=== PATIENT | male | born 1955 | race Caucasian/White ===

== ENCOUNTER → 2016-12-13 | Outpatient (CLI) | payer MEDICARE ==
--- NOTE | 2016-12-14 08:21 | ECHOF ---
Referral Reason:R06.09 LEWIS MEASUREMENTS -------- HEIGHT: 157.5 cm WEIGHT: 131.5 kg BP: RVIDd: 2.6 cm (< 3.3) IVSd: 1.3 cm (0.6 - 1.1) LVIDd: 4.2 cm (3.9 - 5.3) LVPWd: 1.2 cm (0.6 - 1.1) IVSs: 1.8 cm LVIDs: 2.8 cm LVPWs: 1.2 cm Ao Diam: 2.8 cm (2.0 - 3.7) AV Cusp: 1.7 cm (1.5 - 2.6) LA Diam: 3.4 cm (2.7 - 3.8) MV EXCURSION: 13.601 mm (> 18.000) MV EF SLOPE: 82 mm/s (70 - 150) EPSS: 0.6 cm MV E Samy: 0.64 m/s MV DecT: 232 ms MV A Samy: 0.69 m/s MV E/A Ratio: 0.92 RAP: 5.00 mmHg RVSP: 17.01 mmHg FINDINGS -------- Sinus rhythm. This was a technically adequate study. There is mild concentric left ventricular hypertrophy. Overall left ventricular systolic function is low-normal with, an EF between 50 - 55 %. The right ventricle is normal in size. The left atrial size is normal. The right atrial size is normal. There is mild aortic valve sclerosis. There is no evidence of aortic regurgitation. Mild mitral annular calcification present. Mild mitral regurgitation is present. Mild tricuspid regurgitation present. There is no evidence of pulmonary hypertension. The right ventricular systolic pressure, as measured by Doppler, is 17.01mmHg. There is no pulmonic regurgitation present. The aortic root size is normal. Echo free space may represent effusion or a pericardial fat pad. CONCLUSIONS -------- 1. There is mild concentric left ventricular hypertrophy. 2. Echo free space may represent effusion or a pericardial fat pad. 3. Overall left ventricular systolic function is low-normal with, an EF between 50 - 55 %. 4. There is mild aortic valve sclerosis. 5. Mild mitral annular calcification present. 6. Mild mitral regurgitation is present. 7. Mild tricuspid regurgitation present. 8. There is no evidence of pulmonary hypertension. 9. The right ventricular systolic pressure, as measured by Doppler, is 17.01mmHg. 10. There is no pulmonic regurgitation present. DOORKEEPER: Cielo Jones RDCS
== END | disposition home or self-care (01) ==
LOC: RADECHMAIN 14:50
PROVIDERS: ATTEND Family Medicine
DX: I08.3 Combined rheumatic disorders of mitral, aortic and tricuspid valves (principal)
CPT/HCPCS: 93306

== ENCOUNTER → 2019-03-07 | Outpatient (CLI) | payer MEDICARE ==
--- NOTE | 2019-03-07 14:49 | US ---
EXAMINATION TYPE: US venous doppler duplex LE DATE OF EXAM: 03/07/2019 2:27 PM COMPARISON: NONE CLINICAL HISTORY: R60.0 edema of lower extremities. Edema and pain bilateral legs for 1 week SIDE PERFORMED: bilateral TECHNIQUE: The lower extremity deep venous system is examined utilizing real time linear array sonog abdiaziz with graded compression, doppler sonography and color-flow sonography. VESSELS IMAGED: External Iliac Vein (EIV) Common Femoral Vein Deep Femoral Vein Greater Saphenous Vein * Femoral Vein Popliteal Vein Small Saphenous Vein * Proximal Calf Veins (* superficial vessels) Right Leg: No evidence of DVT Left Leg: No evidence of DVT IMPRESSION: 1. Bilateral lower extremity ultrasound negative for deep venous thrombosis.
== END | disposition home or self-care (01) ==
LOC: RADUSWWP 13:54
PROVIDERS: ATTEND Family Medicine
DX: R60.0 Localized edema (principal)
CPT/HCPCS: 93970

== ENCOUNTER → 2020-04-21 | Outpatient (CLI) | payer MEDICARE ==
[2020-04-21 14:22] LABS: Basophils # (A) 0.1 k/uL (0-0.2); Basophils % (A) 1 %; Eosinophils # (A) 0.3 k/uL (0-0.7); Eosinophils % (A) 3 %; HCT 42.8 % (39.0-53.0); HGB 14.2 gm/dL (13.0-17.5); Lymphocytes # (A) 1.8 k/uL (1.0-4.8); Lymphocytes % (A) 18 %; MCH 30.9 pg (25.0-35.0); MCHC 33.1 g/dL (31.0-37.0); MCV 93.2 fL (80.0-100.0); Mean Platelet Volume 8.4; Monocytes # (A) 0.6 k/uL (0-1.0); Monocytes % (A) 6 %; Neutrophils # (A) 6.9 k/uL (1.3-7.7); Neutrophils % (A) 69 %; Platelet Count 137 k/uL (150-450); RBC 4.59 m/uL (4.30-5.90); RDW 14.5 % (11.5-15.5)
[2020-04-22 01:20] LABS: Hemoglobin A1C 5.4 % (4.0-6.0)
[2020-04-22 01:43] LABS: Streptolysin O Ab(ASO) 138 IU/mL (0-200)
[2020-04-22 01:47] LABS: Protein, Total 6.3 g/dL (6.2-8.2)
[2020-04-22 01:57] LABS: Anion Gap 7.1 mmol/L (4.00-12.00); C Reactive Protein 1.2 mg/dL (0.0-0.8); Carbon Dioxide 27.9 mmol/L (21.6-31.8); Uric Acid 6.7 mg/dL (3.7-8.7)
[2020-04-22 02:21] LABS: Erythrocyte Sedimentation Rate 22 mm/Hr (0-20)
[2020-04-22 03:28] LABS: Hepatitis C IgG Antibody Non-Reactive (Non-Reactive)
[2020-04-22 09:57] LABS: Angiotensin-1 Converting Enz. 26 U/L (8-52)
[2020-04-22 12:20] LABS: HLA B27 NEGATIVE
[2020-04-22 12:22] LABS: Albumin 3.77 g/dL (3.80-4.90)
[2020-04-23 08:13] LABS: HCV Qualitative Result Not detected (Not detected); HCV Quant Log <1.08 (<1.08); HCV Quantitative Result <12 IU/mL (<12)
[2020-04-23 10:12] LABS: Vit B1(Thiamine) 65 ug/L (38-122)
== END | disposition home or self-care (01) ==
LOC: LABWHC1 12:54
PROVIDERS: ATTEND Physical Medicine & Rehabilitation
DX: M54.5 Low back pain (principal); M51.36 Other intervertebral disc degeneration, lumbar region; M47.817 Spondylosis without myelopathy or radiculopathy, lumbosacral region; M41.86 Other forms of scoliosis, lumbar region; M62.830 Muscle spasm of back; Z99.81 Dependence on supplemental oxygen; M51.34 Other intervertebral disc degeneration, thoracic region; J44.9 Chronic obstructive pulmonary disease, unspecified
CPT/HCPCS: 36415; 80051; 82164; 82175; 82550; 82553; 82570; 82607; 83036; 83516; 83615; 83655; 83825; 84165; 84207; 84425; 84443; 84550; 85025; 85652; 86038; 86060; 86140; 86235; 86431; 86618; 86803; 86812; 87522

== ENCOUNTER 2021-06-05 09:56 | Inpatient (IN) | payer MEDICARE ==
[2021-06-05] MEDS ORDERED: ALBUTEROL NEBULIZED 2.5 MG/3 ML INHALATION STA (10:01)
[2021-06-05] MEDS ORDERED: methylPREDNISolone SOD SUCCI 125 MG/2 ML VIAL IV STA (10:01)
[2021-06-05] MEDS ORDERED: TERBUTALINE 1 MG/ML VIAL SQ STA (10:01)
[2021-06-05] MEDS ORDERED: IPRATROPIUM 0.5 MG/2.5 ML NEBU INHALATION STA (10:01)
--- NOTE | 2021-06-05 10:16 | ED ---
General Adult HPI - General Stated complaint: NAVIN Time Seen by Provider: 06/05/21 09:56 Source: patient, RN notes reviewed, old records reviewed - History of Present Illness Initial comments: This a 65-year-old male who has past medical history significant for COPD per patient states suddenly this morning he started feeling short of breath and when EMS got there he was cyanotic around the lips and fingertips. Patient denies a ny chest pain. Patient denies any recent fever chills or cough. Patient states he continues smoking cigarettes. Patient states he did have his oxygen on at home when this started. EMS states when they got to the put him on oxygen and gave him a breathing treatment and he was doing considerably better after that the put him on CPAP. - Related Data Home Medications Medication Instructions Recorded Confirmed Multivitamin [Men's Multi-Vitamin] 1 tab PO DAILY 04/13/16 06/05/21 Albuterol Inhaler [Ventolin Hfa 2 puff INHALATION RT-Q4H PRN 06/05/21 06/05/21 Inhaler] Budesonide/Formoterol Fumarate 2 puff INHALATION RT-BID 06/05/21 06/05/21 [Symbicort 160-4.5 Mcg Inhaler] Ergocalciferol [Vitamin D2 (1250 1,250 mcg PO WEEKLY 06/05/21 06/05/21 Mcg = 96210 Iu)] Famotidine [Pepcid] 20 mg PO BID 06/05/21 06/05/21 Furosemide [Lasix] 40 mg PO DAILY 06/05/21 06/05/21 Ipratropium-Albuterol Nebulize 3 ml INHALATION RT-Q4H PRN 06/05/21 06/05/21 [Duoneb 0.5 mg-3 mg/3 ml Soln] Losartan Potassium 100 mg PO DAILY 06/05/21 06/05/21 Potassium Chloride ER [K-Dur 10] 10 meq PO DAILY 06/05/21 06/05/21 Pregabalin [Lyrica] 200 mg PO TID 06/05/21 06/05/21 Tamsulosin [Flomax] 0.4 mg PO DAILY 06/05/21 06/05/21 Venlafaxine HCl [Effexor XR] 150 mg PO DAILY 06/05/21 06/05/21 amLODIPine [Norvasc] 5 mg PO DAILY 06/05/21 06/05/21 Allergies Allergy/AdvReac Type Severity Reaction Status Date / Time latex AdvReac Rash/Hives Verified 06/05/21 11:26 Review of Systems ROS Statement: Those systems with pertinent positive or pertinent negative responses have been documented in the HPI. ROS Other: All systems not noted in ROS Statement are negative. Past Medical History Past Medical History: COPD History of Any Multi-Drug Resistant Organisms: None Reported Past Surgical History: Joint Replacement, Orthopedic Surgery Additional Past Surgical History / Comment(s): Colonoscopy, Carpel Tunnel Past Anesthesia/Blood Transfusion Reactions: No Reported Reaction Past Alcohol Use History: Rare Past Drug Use History: Marijuana - Past Family History Mother Family Medical History: No Reported History General Exam - General Exam Comments Initial Comments: GENERAL: Patient is well-developed and well-nourished. Patient is nontoxic and well- hydrated and is in mild distress. ENT: Neck is soft and supple. No significant lymphadenopathy is noted. Oropharynx is clear. Moist mucous membranes. Neck has full range of motion without eliciting any pain. EYES: The sclera were anicteric and conjunctiva were pink and moist. Extraocular movements were intact and pupils were equal round and reactive to light. Eyelids were unremarkable. PULMONARY: Very diminished breath sounds and some expiratory wheezing CARDIOVASCULAR: There is a regular rate and rhythm without any murmurs gallops or rubs. ABDOMEN: Soft and nontender with normal bowel sounds. SKIN: Skin is clear with no lesions or rashes and otherwise unremarkable. NEUROLOGIC: Patient is alert and oriented x3. Cranial nerves II through XII are grossly intact. Motor and sensory are also intact. Normal speech, volume and content. Symmetrical smile. MUSCULOSKELETAL: Normal extremities with adequate strength and full range of motion. No lower extremity swelling or edema. No calf tenderness. LYMPHATICS: No significant lymphadenopathy is noted PSYCHIATRIC: Normal psychiatric evaluation. Course Vital Signs 06/05/21 06/05/21 06/05/21 09:58 10:12 10:13 Temperature 97.2 F L Pulse Rate 100 97 Respiratory 24 18 Rate Blood Pressure 157/87 O2 Sat by Pulse 96 Oximetry 06/05/21 06/05/21 06/05/21 10:30 10:56 11:15 Temperature Pulse Rate 99 98 99 Respiratory 18 18 Rate Blood Pressure 128/100 106/83 O2 Sat by Pulse 100 94 L Oximetry 06/05/21 11:51 Temperature Pulse Rate 95 Respiratory Rate Blood Pressure O2 Sat by Pulse Oximetry Medical Decision Making - Medical Decision Making EKG shows normal sinus rhythm at 90 bpm MA interval is 170 QRS is 86 QT interval 336 QTC is 420. Patient's EKG shows no ST segment elevation or depression. Patient received multiple breathing treatments in the emergency department he was still on CPAP when he arrived and he was given steroids. Patient was in significant respiratory distress on arrival. After the breathing treatments and terbutaline in the steroids I went back and reevaluated him he was moving air much better and he felt better but nowhere near his baseline. I spoke with Dr. Cartwright and he agreed to admit the patient admitted the patient wrote admitting orders I consult to Dr. Joshi for pulmonary I admitted the patient and I continued the albuterol and steroids on the floor - Lab Data Result diagrams: 06/05/21 10:11 06/05/21 10:11 Lab Results 06/05/21 06/05/21 06/05/21 Range/Units 10:10 10:11 10:11 WBC 9.2 (3.8-10.6) k/uL RBC 5.42 (4.30-5.90) m/uL Hgb 17.2 (13.0-17.5) gm/dL Hct 50.7 (39.0-53.0) % MCV 93.7 (80.0-100.0) fL MCH 31.7 (25.0-35.0) pg MCHC 33.8 (31.0-37.0) g/dL RDW 15.8 H (11.5-15.5) % Plt Count 136 L (150-450) k/uL MPV 8.3 Neutrophils % 66 % Lymphocytes % 20 % Monocytes % 5 % Eosinophils % 6 % Basophils % 1 % Neutrophils # 6.0 (1.3-7.7) k/uL Lymphocytes # 1.8 (1.0-4.8) k/uL Monocytes # 0.4 (0-1.0) k/uL Eosinophils # 0.5 (0-0.7) k/uL Basophils # 0.1 (0-0.2) k/uL PT 10.2 (9.0-12.0) sec INR 0.9 (<1.2) APTT 23.8 (22.0-30.0) sec D-Dimer 0.57 (<0.60) mg/L FEU Sodium (137-145) mmol/L Potassium (3.5-5.1) mmol/L Chloride (98-107) mmol/L Carbon Dioxide (22-30) mmol/L Anion Gap mmol/L BUN (9-20) mg/dL Creatinine (0.66-1.25) mg/dL Est GFR (CKD-EPI)AfAm (>60 ml/min/1.73 sqM) Est GFR (CKD-EPI)NonAf (>60 ml/min/1.73 sqM) Glucose (74-99) mg/dL Plasma Lactic Acid [place] (0.7-2.0) mmol/L Calcium (8.4-10.2) mg/dL Magnesium (1.6-2.3) mg/dL Total Bilirubin (0.2-1.3) mg/dL AST (17-59) U/L ALT (4-49) U/L Alkaline Phosphatase (38-126) U/L Troponin I (0.000-0.034) ng/mL NT-Pro-B Natriuret Pep pg/mL Total Protein (6.3-8.2) g/dL Albumin (3.5-5.0) g/dL 06/05/21 06/05/21 06/05/21 Range/Units 10:11 10:11 10:11 WBC (3.8-10.6) k/uL RBC (4.30-5.90) m/uL Hgb (13.0-17.5) gm/dL Hct (39.0-53.0) % MCV (80.0-100.0) fL MCH (25.0-35.0) pg MCHC (31.0-37.0) g/dL RDW (11.5-15.5) % Plt Count (150-450) k/uL MPV Neutrophils % % Lymphocytes % % Monocytes % % Eosinophils % % Basophils % % Neutrophils # (1.3-7.7) k/uL Lymphocytes # (1.0-4.8) k/uL Monocytes # (0-1.0) k/uL Eosinophils # (0-0.7) k/uL Basophils # (0-0.2) k/uL PT (9.0-12.0) sec INR (<1.2) APTT (22.0-30.0) sec D-Dimer (<0.60) mg/L FEU Sodium 138 (137-145) mmol/L Potassium 4.5 (3.5-5.1) mmol/L Chloride 98 (98-107) mmol/L Carbon Dioxide 30 (22-30) mmol/L Anion Gap 10 mmol/L BUN 14 (9-20) mg/dL Creatinine 0.99 (0.66-1.25) mg/dL Est GFR (CKD-EPI)AfAm >90 (>60 ml/min/1.73 sqM) Est GFR (CKD-EPI)NonAf 80 (>60 ml/min/1.73 sqM) Glucose 156 H (74-99) mg/dL Plasma Lactic Acid [place] 1.0 (0.7-2.0) mmol/L Calcium 9.7 (8.4-10.2) mg/dL Magnesium 2.2 (1.6-2.3) mg/dL Total Bilirubin 0.9 (0.2-1.3) mg/dL AST 48 (17-59) U/L ALT 55 H (4-49) U/L Alkaline Phosphatase 105 (38-126) U/L Troponin I <0.012 (0.000-0.034) ng/mL NT-Pro-B Natriuret Pep pg/mL Total Protein 7.8 (6.3-8.2) g/dL Albumin 4.7 (3.5-5.0) g/dL 06/05/21 Range/Units 10:11 WBC (3.8-10.6) k/uL RBC (4.30-5.90) m/uL Hgb (13.0-17.5) gm/dL Hct (39.0-53.0) % MCV (80.0-100.0) fL MCH (25.0-35.0) pg MCHC (31.0-37.0) g/dL RDW (11.5-15.5) % Plt Count (150-450) k/uL MPV Neutrophils % % Lymphocytes % % Monocytes % % Eosinophils % % Basophils % % Neutrophils # (1.3-7.7) k/uL Lymphocytes # (1.0-4.8) k/uL Monocytes # (0-1.0) k/uL Eosinophils # (0-0.7) k/uL Basophils # (0-0.2) k/uL PT (9.0-12.0) sec INR (<1.2) APTT (22.0-30.0) sec D-Dimer (<0.60) mg/L FEU Sodium (137-145) mmol/L Potassium (3.5-5.1) mmol/L Chloride (98-107) mmol/L Carbon Dioxide (22-30) mmol/L Anion Gap mmol/L BUN (9-20) mg/dL Creatinine (0.66-1.25) mg/dL Est GFR (CKD-EPI)AfAm (>60 ml/min/1.73 sqM) Est GFR (CKD-EPI)NonAf (>60 ml/min/1.73 sqM) Glucose (74-99) mg/dL Plasma Lactic Acid [place] (0.7-2.0) mmol/L Calcium (8.4-10.2) mg/dL Magnesium (1.6-2.3) mg/dL Total Bilirubin (0.2-1.3) mg/dL AST (17-59) U/L ALT (4-49) U/L Alkaline Phosphatase (38-126) U/L Troponin I (0.000-0.034) ng/mL NT-Pro-B Natriuret Pep 12 pg/mL Total Protein (6.3-8.2) g/dL Albumin (3.5-5.0) g/dL Critical Care Time Critical Care Time: Yes Total Critical Care Time: 35 Disposition Clinical Impression: Acute exacerbation of chronic obstructive pulmonary disease Disposition: ADMITTED IP TO THIS HOSP Referrals: Bill De León MD [REFERRING] - 1-2 days Time of Disposition: 11:56
[2021-06-05 10:20] LABS: Basophils # (A) 0.1 k/uL (0-0.2); Basophils % (A) 1 %; Eosinophils # (A) 0.5 k/uL (0-0.7); Eosinophils % (A) 6 %; HCT 50.7 % (39.0-53.0); HGB 17.2 gm/dL (13.0-17.5); Lymphocytes # (A) 1.8 k/uL (1.0-4.8); Lymphocytes % (A) 20 %; MCH 31.7 pg (25.0-35.0); MCHC 33.8 g/dL (31.0-37.0); MCV 93.7 fL (80.0-100.0); Mean Platelet Volume 8.3; Monocytes # (A) 0.4 k/uL (0-1.0); Monocytes % (A) 5 %; Neutrophils % (A) 66 %; Platelet Count 136 k/uL (150-450); RBC 5.42 m/uL (4.30-5.90); RDW 15.8 % (11.5-15.5); WBC 9.2 k/uL (3.8-10.6)
[2021-06-05 10:29] LABS: ALT 55 U/L (4-49); AST 48 U/L (17-59); African American GFR (CKD) >90 (>60 ml/min/1.73 sqM); Albumin 4.7 g/dL (3.5-5.0); Alkaline Phosphatase 105 U/L (38-126); Anion Gap 10 mmol/L; Blood Urea Nitrogen 14 mg/dL (9-20); Calcium 9.7 mg/dL (8.4-10.2); Carbon Dioxide 30 mmol/L (22-30); Chloride 98 mmol/L (98-107); Glucose 156 mg/dL (74-99); Magnesium 2.2 mg/dL (1.6-2.3); Non-African American GFR(CKD) 80 (>60 ml/min/1.73 sqM); Potassium 4.5 mmol/L (3.5-5.1); Sodium 138 mmol/L (137-145); Total Bilirubin 0.9 mg/dL (0.2-1.3); Total Protein 7.8 g/dL (6.3-8.2)
[2021-06-05 10:30] LABS: INR 0.9 (<1.2); Partial Thromboplastin Time 23.8 sec (22.0-30.0); Prothrombin Time 10.2 sec (9.0-12.0)
--- NOTE | 2021-06-05 11:27 | XR ---
EXAMINATION TYPE: XR chest 2V DATE OF EXAM: 06/05/2021 COMPARISON: NONE HISTORY: Difficulty breathing TECHNIQUE: Frontal and lateral views of the chest are obtained. FINDINGS: There is no focal air space opacity, pleural effusion, or pneumothorax seen. The cardiac silhouette size is within normal limits. There is flattening hemidiaphragms and increased AP diameter of the chest suggesting underlying COPD. Thoracic spondylosis is present. There are overlying leads. Prominent lung volumes noted. Costophrenic angles not entirely included on exam. The osseous struc tures are intact. IMPRESSION: No acute cardiopulmonary process.
[2021-06-05] MEDS ORDERED: IPRATROPIUM-ALBUTEROL 3 ML NEB INHALATION STA (11:49)
[2021-06-05] MEDS ORDERED: IPRATROPIUM-ALBUTEROL 3 ML NEB INHALATION PRN (11:56)
--- NOTE | 2021-06-05 14:15 | P.HPIM ---
History of Present Illness H&P Date: 06/05/21 This is a 65-year-old male with past medical history noted below significant for underlying COPD on home O2 at presented to the emergency room with worsening shortness of breath. Patient said that his symptoms started few days ago and is been getting progressively worse. He is complaining of wheezing and chest tightness. Is also having cough that is productive occasionally of white sputum. He denies any chills. No chest pain. Patient received COVID-19 vaccine. He was brought into the emergency room by EMS and was found to be significantly hypoxic requiring BiPAP on presentation. He is currently on 4 L of oxygen via nasal cannula. He received IV Solu-Medrol in the ER with breathing treatment and currently feeling better. Chest x-ray showed no acute findings. Review of Systems Review of system: 14 points review of systems were obtained and were negative except to what were mentioned in the HPI. Past Medical History Past Medical History: COPD History of Any Multi-Drug Resistant Organisms: None Reported Past Surgical History: Joint Replacement, Orthopedic Surgery Additional Past Surgical History / Comment(s): Colonoscopy, Carpel Tunnel Past Anesthesia/Blood Transfusion Reactions: No Reported Reaction Smoking Status: Current every day smoker Past Alcohol Use History: Rare Past Drug Use History: Marijuana - Past Family History Mother Family Medical History: No Reported History Medications and Allergies Home Medications Medication Instructions Recorded Confirmed Type Multivitamin [Men's Multi-Vitamin] 1 tab PO DAILY 04/13/16 06/05/21 History Albuterol Inhaler [Ventolin Hfa 2 puff INHALATION RT-Q4H PRN 06/05/21 06/05/21 History Inhaler] Budesonide/Formoterol Fumarate 2 puff INHALATION RT-BID 06/05/21 06/05/21 History [Symbicort 160-4.5 Mcg Inhaler] Ergocalciferol [Vitamin D2 (1250 1,250 mcg PO WEEKLY 06/05/21 06/05/21 History Mcg = 46289 Iu)] Famotidine [Pepcid] 20 mg PO BID 06/05/21 06/05/21 History Furosemide [Lasix] 40 mg PO DAILY 06/05/21 06/05/21 History Ipratropium-Albuterol Nebulize 3 ml INHALATION RT-Q4H PRN 06/05/21 06/05/21 History [Duoneb 0.5 mg-3 mg/3 ml Soln] Losartan Potassium 100 mg PO DAILY 06/05/21 06/05/21 History Potassium Chloride ER [K-Dur 10] 10 meq PO DAILY 06/05/21 06/05/21 History Pregabalin [Lyrica] 200 mg PO TID 06/05/21 06/05/21 History Tamsulosin [Flomax] 0.4 mg PO DAILY 06/05/21 06/05/21 History Venlafaxine HCl [Effexor XR] 150 mg PO DAILY 06/05/21 06/05/21 History amLODIPine [Norvasc] 5 mg PO DAILY 06/05/21 06/05/21 History Allergies Allergy/AdvReac Type Severity Reaction Status Date / Time latex AdvReac Rash/Hives Verified 06/05/21 11:26 Physical Exam Vitals: Vital Signs Temp Pulse Pulse Resp BP BP Pulse Ox 06/05/21 13:35 98.5 F 85 22 134/65 94 L 06/05/21 13:09 90 18 119/79 98 06/05/21 12:01 95 06/05/21 11:51 95 06/05/21 11:15 99 18 106/83 94 L 06/05/21 10:56 98 18 128/100 100 06/05/21 10:30 99 06/05/21 10:13 97 06/05/21 10:12 18 06/05/21 09:58 97.2 F L 100 24 157/87 96 Intake and Output 06/04/21 06/05/21 06/05/21 22:59 06:59 14:59 Other: Weight 127.006 kg General: The patient is awake and alert, in no distress Eye: there is normal conjunctiva bilaterally. Neck: The neck is supple, there is no JVD. Cardiovascular: Normal S1-S2, no S3-S4, no murmurs. Respiratory: Lungs are tight with end expiratory wheezing Gastrointestinal: Abdomen is soft, nontender Musculoskeletal: There is no pedal edema. Neurological:. Speech is normal. Skin: Skin is warm and dry Results CBC & Chem 7: 06/05/21 10:11 06/05/21 10:11 Labs: Abnormal Lab Results - Last 24 Hours (Table) 06/05/21 06/05/21 Range/Units 10:11 10:11 RDW 15.8 H (11.5-15.5) % Plt Count 136 L (150-450) k/uL Glucose 156 H (74-99) mg/dL ALT 55 H (4-49) U/L Thrombosis Risk Factor Assmnt - Choose All That Apply Any of the Below Risk Factors Present?: No Assessment and Plan Assessment: 1. Acute COPD exacerbation 2. Acute on chronic hypoxic respiratory failure requiring BiPAP on presentation currently on 4 L of oxygen 3. Chronic hypoxic respiratory failure on 2 L of oxygen at home 4. Essential hypertension 5. BPH Today, I reviewed his medication list and lab work results. Chest x-ray with no acute findings. Continue current regimen. DuoNeb's every 6 hours. Continue inhaled steroids. IV Solu-Medrol 60 mg every 6 hours. Pulmonary consulted for further evaluation.
[2021-06-05] MEDS: IPRATROPIUM-ALBUTEROL 3 ML NEB INHALATION SCH ×2 (16:18→20:11)
[2021-06-05] MEDS: PREGABALIN 100 MG CAP PO SCH ×2 (16:24→20:11)
[2021-06-05] MEDS: methylPREDNISolone SOD SUCCI 125 MG/2 ML VIAL IV SCH ×2 (16:24→20:11)
[2021-06-05 16:32] LABS: Glucose,Whole Blood 128 mg/dL (75-99)
[2021-06-05 19:54] LABS: Glucose,Whole Blood 136 mg/dL (75-99)
[2021-06-05] MEDS ORDERED: BUDESONIDE 0.5 MG/2 ML NEBU INHALATION SCH (20:00)
[2021-06-05] MEDS: FAMOTIDINE 20 MG TAB PO SCH (20:11)
[2021-06-05] MEDS: guaiFENesin 600 MG TABLET.ER PO SCH (20:11)
[2021-06-05] MEDS: SYMBICORT 160-4.5 MCG INHALER INHALATION SCH (20:12)
--- NOTE | 2021-06-06 01:20 | P.CNPUL ---
History of Present Illness Consult date: 06/06/21 Reason for consult: dyspnea, cough, hypoxemia Chief complaint: Shortness of breath History of present illness: 65-year-old morbidly obese male with prior history of sleep disorder breathing and sleep apnea also has a history of COPD on home oxygen 24 7 has been having more short of breath for the last several days which has been progressive patient attributes it to warm weather along with humidity, due to progressive shortness of breath EMS for notified and was brought into emergency department was noted to be cyanotic on the face and the lips and hands patient was placed on CPAP with that he started feeling better, eventually BiPAP was weaned down to 4 L nasal cannula at time of my evaluation patient back on BiPAP but for sleep disorder breathing and sleep apnea and more composed his setting includes 09/13 with 40% oxygen, still have some shortness of breath but severity significantly improved, her chest x-ray has been unremarkable, and labs reviewed mild hyperglycemia thrombocytopenia is present otherwise unremarkable, patient has his CPAP which is old and now patient wants to be changed to new CPAP machine Review of Systems All systems: negative Past Medical History Past Medical History: COPD History of Any Multi-Drug Resistant Organisms: None Reported Past Surgical History: Joint Replacement, Orthopedic Surgery Additional Past Surgical History / Comment(s): Colonoscopy, Carpel Tunnel Past Anesthesia/Blood Transfusion Reactions: No Reported Reaction Smoking Status: Current every day smoker Past Alcohol Use History: Rare Past Drug Use History: Marijuana - Past Family History Mother Family Medical History: No Reported History Medications and Allergies Home Medications Medication Instructions Recorded Confirmed Type Multivitamin [Men's Multi-Vitamin] 1 tab PO DAILY 04/13/16 06/05/21 History Albuterol Inhaler [Ventolin Hfa 2 puff INHALATION RT-Q4H PRN 06/05/21 06/05/21 History Inhaler] Budesonide/Formoterol Fumarate 2 puff INHALATION RT-BID 06/05/21 06/05/21 History [Symbicort 160-4.5 Mcg Inhaler] Ergocalciferol [Vitamin D2 (1250 1,250 mcg PO WEEKLY 06/05/21 06/05/21 History Mcg = 38216 Iu)] Famotidine [Pepcid] 20 mg PO BID 06/05/21 06/05/21 History Furosemide [Lasix] 40 mg PO DAILY 06/05/21 06/05/21 History Ipratropium-Albuterol Nebulize 3 ml INHALATION RT-Q4H PRN 06/05/21 06/05/21 His tory [Duoneb 0.5 mg-3 mg/3 ml Soln] Losartan Potassium 100 mg PO DAILY 06/05/21 06/05/21 History Potassium Chloride ER [K-Dur 10] 10 meq PO DAILY 06/05/21 06/05/21 History Pregabalin [Lyrica] 200 mg PO TID 06/05/21 06/05/21 History Tamsulosin [Flomax] 0.4 mg PO DAILY 06/05/21 06/05/21 History Venlafaxine HCl [Effexor XR] 150 mg PO DAILY 06/05/21 06/05/21 History amLODIPine [Norvasc] 5 mg PO DAILY 06/05/21 06/05/21 History Allergies Allergy/AdvReac Type Severity Reaction Status Date / Time latex AdvReac Rash/Hives Verified 06/05/21 11:26 Physical Exam Vitals: Vital Signs Temp Pulse Pulse Resp BP BP Pulse Ox 06/06/21 00:00 97.8 F 78 16 138/73 06/05/21 20:23 90 06/05/21 20:12 93 06/05/21 20:00 97.8 F 93 18 145/68 94 L 06/05/21 16:34 84 06/05/21 16:20 88 06/05/21 16:00 97.9 F 84 20 138/68 94 L 06/05/21 13:35 98.5 F 85 22 134/65 94 L 06/05/21 13:09 90 18 119/79 98 06/05/21 12:01 95 06/05/21 11:51 95 06/05/21 11:15 99 18 106/83 94 L 06/05/21 10:56 98 18 128/100 100 06/05/21 10:30 99 06/05/21 10:13 97 06/05/21 10:12 18 06/05/21 09:58 97.2 F L 100 24 157/87 96 Intake and Output 06/05/21 06/05/21 06/06/21 14:59 22:59 06:59 Other: # Voids 1 Weight 127.006 kg - Constitutional General appearance: morbidly obese, no acute distress - EENT Eyes: EOMI, PERRLA Ears: bilateral: normal - Neck Carotids: bilateral: upstroke normal Thyroid: bilateral: normal size - Respiratory Respiratory: bilateral: diminished - Cardiovascular Rhythm: regular Heart sounds: normal: S1, S2 - Gastrointestinal General gastrointestinal: distended, normal bowel sounds, soft - Neurologic Neurologic: CNII-XII intact - Musculoskeletal Musculoskeletal: gait normal, generalized weakness, strength equal bilaterally - Psychiatric Psychiatric: A&O x's 3, appropriate affect, intact judgment & insight Results - Laboratory Findings CBC and BMP: 06/05/21 10:11 06/05/21 10:11 PT/INR, D-dimer PT 10.2 sec (9.0-12.0) 06/05/21 10:11 INR 0.9 (<1.2) 06/05/21 10:11 D-Dimer 0.57 mg/L FEU (<0.60) 06/05/21 10:10 Abnormal lab findings: Abnormal Labs 06/05/21 06/05/21 06/05/21 10:11 10:11 16:31 RDW 15.8 H Plt Count 136 L Glucose 156 H POC Glucose (mg/dL) 128 H ALT 55 H 06/05/21 19:52 RDW Plt Count Glucose POC Glucose (mg/dL) 136 H ALT - Diagnostic Findings Chest x-ray: report reviewed, image reviewed Assessment and Plan Assessment: Acute COPD exacerbation Acute on chronic hypoxic respiratory failure Sleep disorder breathing and sleep apnea Hypertension hypertensive cardiovascular disease Chronic diastolic heart failure Morbid obesity Plan: Overall patient is fairly stable for discharge on supplemental oxygen as taken at home and continuation of BiPAP, would need tapering doses of steroids as outpatient, would recommend a follow-up in the office in order to update sleep study/CPAP titration as well as arrange for a new CPAP machine Time with Patient: Greater than 30
[2021-06-06 06:10] LABS: Glucose,Whole Blood 143 mg/dL (75-99)
[2021-06-06] MEDS: methylPREDNISolone SOD SUCCI 125 MG/2 ML VIAL IV SCH ×2 (06:22→08:50)
[2021-06-06] MEDS: IPRATROPIUM-ALBUTEROL 3 ML NEB INHALATION SCH ×4 (07:38→18:47)
[2021-06-06] MEDS: SYMBICORT 160-4.5 MCG INHALER INHALATION SCH ×2 (07:39→18:47)
[2021-06-06] MEDS: VENLAFAXINE HCL ER 150 MG CAP PO SCH (08:48)
[2021-06-06] MEDS: TAMSULOSIN 0.4 MG CAP.ER.24H PO SCH (08:48)
[2021-06-06] MEDS: guaiFENesin 600 MG TABLET.ER PO SCH ×2 (08:49→19:59)
[2021-06-06] MEDS: amLODIPine 5 MG TAB PO SCH (08:49)
[2021-06-06] MEDS: LOSARTAN 50 MG TAB PO SCH (08:49)
[2021-06-06] MEDS: PREGABALIN 100 MG CAP PO SCH ×3 (08:49→19:59)
[2021-06-06] MEDS: POTASSIUM CHLORIDE ER 10 MEQ TAB.ER.PRT PO SCH (08:49)
[2021-06-06] MEDS: FUROSEMIDE 40 MG TAB PO SCH (08:49)
[2021-06-06] MEDS: FAMOTIDINE 20 MG TAB PO SCH ×2 (08:50→19:59)
--- NOTE | 2021-06-06 10:57 | P.PN ---
Subjective Progress Note Date: 06/06/21 Patient is feeling slightly better today. Wheezing is improved but his lungs still tight. Objective - Vital Signs Vital signs: Vital Signs Temp 98.0 F 06/06/21 08:00 Pulse 68 06/06/21 08:00 Resp 18 06/06/21 08:00 BP 144/65 06/06/21 08:00 Pulse Ox 96 06/06/21 08:00 Intake & Output 06/05/21 06/06/21 06/06/21 18:59 06:59 18:59 Intake Total 180 Balance 180 Weight 127.006 kg 124.5 kg Intake: Oral 180 Other: # Voids 1 - Exam General: The patient is awake and alert, in no distress Eye: there is normal conjunctiva bilaterally. Neck: The neck is supple, there is no JVD. Cardiovascular: Normal S1-S2, no S3-S4, no murmurs. Respiratory: Lungs diminished with mild end expiratory wheezing Gastrointestinal: Abdomen is soft, nontender Musculoskeletal: There is no pedal edema. Neurological:. Speech is normal. Skin: Skin is warm and dry - Labs CBC & Chem 7: 06/05/21 10:11 06/05/21 10:11 Labs: Abnormal Lab Results - Last 24 Hours (Table) 06/05/21 06/05/21 06/06/21 Range/Units 16:31 19:52 06:07 POC Glucose (mg/dL) 128 H 136 H 143 H (75-99) mg/dL Assessment and Plan Assessment: 1. Acute COPD exacerbation 2. Acute on chronic hypoxic respiratory failure requiring BiPAP on presentation currently on 4 L of oxygen 3. Chronic hypoxic respiratory failure on 2 L of oxygen at home 4. Essential hypertension 5. BPH Today, I reviewed his medication list and lab work results. Chest x-ray with no acute findings. Continue current regimen. DuoNeb's every 6 hours. Continue inhaled steroids. Change IV Solu-Medrol tp 40 mg every 8 hours. Pulmonary consulted for further evaluation, appreciate recommendations. Anticipate discharge home in the morning.
[2021-06-06 11:32] LABS: Glucose,Whole Blood 140 mg/dL (75-99)
[2021-06-06] MEDS ORDERED: MULTIVITAMINS, THERA 1 EACH TAB PO SCH (12:00)
[2021-06-06] MEDS: methylPREDNISolone SOD SUCCI 40 MG/ML 1 ML VIAL IV SCH ×2 (16:12→23:56)
[2021-06-06 16:23] LABS: Glucose,Whole Blood 125 mg/dL (75-99)
[2021-06-06 20:09] LABS: Glucose,Whole Blood 132 mg/dL (75-99)
[2021-06-07 06:24] LABS: Glucose,Whole Blood 133 mg/dL (75-99)
[2021-06-07] MEDS: SYMBICORT 160-4.5 MCG INHALER INHALATION SCH (08:05)
[2021-06-07] MEDS: IPRATROPIUM-ALBUTEROL 3 ML NEB INHALATION SCH ×2 (08:05→11:55)
[2021-06-07 08:10] VITALS: RESP 18
[2021-06-07] MEDS: amLODIPine 5 MG TAB PO SCH (08:50)
[2021-06-07] MEDS: FAMOTIDINE 20 MG TAB PO SCH (08:51)
[2021-06-07] MEDS: methylPREDNISolone SOD SUCCI 40 MG/ML 1 ML VIAL IV SCH (08:51)
[2021-06-07] MEDS: guaiFENesin 600 MG TABLET.ER PO SCH (08:51)
[2021-06-07] MEDS: FUROSEMIDE 40 MG TAB PO SCH (08:51)
[2021-06-07] MEDS: PREGABALIN 100 MG CAP PO SCH (08:51)
[2021-06-07] MEDS: LOSARTAN 50 MG TAB PO SCH (08:51)
[2021-06-07] MEDS: POTASSIUM CHLORIDE ER 10 MEQ TAB.ER.PRT PO SCH (08:57)
[2021-06-07] MEDS: VENLAFAXINE HCL ER 150 MG CAP PO SCH (08:57)
[2021-06-07] MEDS: TAMSULOSIN 0.4 MG CAP.ER.24H PO SCH (08:57)
[2021-06-07 10:06] VITALS: BP 155/77; TEMP 98.1
--- NOTE | 2021-06-07 10:45 | P.DS ---
Providers Date of admission: 06/05/21 11:56 Expected date of discharge: 06/07/21 Attending physician: Zuleima Cartwright Consults: 06/05/21 11:56 Consult Physician Routine Consulting Provider: Efrain Joshi Consult Reason/Comments: COPD exacerbation Do you want consulting provider notified?: Yes Primary care physician: Bill De León MD Hospital Course: This is a 65-year-old male with past medical history noted below who presented to the emergency room with worsening shortness of breath. Patient was evaluated in the ER and admitted to the hospital for further management of his medical problems noted below. 1. Acute COPD exacerbation 2. Acute on chronic hypoxic respiratory failure requiring BiPAP on presentation currently on 4 L of oxygen 3. Chronic hypoxic respiratory failure on 2 L of oxygen at home 4. Essential hypertension 5. BPH Patient was treated with IV Solu-Medrol and bronchodilators. Chest x-ray with no acute findings. His overall condition improved significantly. Patient was seen and evaluated by me on the day of discharge. There is no significant wheezing on lung auscultation. He was counseled extensively regarding tobacco cessation. Patient will be discharged home in a stable condition. Patient Condition at Discharge: Fair Plan - Discharge Summary Discharge Rx Participant: No New Discharge Prescriptions: New predniSONE [Deltasone] 40 mg PO DAILY #10 tab guaiFENesin [Mucinex] 1,200 mg PO Q12HR #14 tablet Continue Multivitamin [Men's Multi-Vitamin] 1 tab PO DAILY Ergocalciferol [Vitamin D2 (1250 Mcg = 45912 Iu)] 1,250 mcg PO WEEKLY Venlafaxine HCl [Effexor XR] 150 mg PO DAILY Famotidine [Pepcid] 20 mg PO BID Albuterol Inhaler [Ventolin Hfa Inhaler] 2 puff INHALATION RT-Q4H PRN PRN Reason: Shortness Of Breath Tamsulosin [Flomax] 0.4 mg PO DAILY Pregabalin [Lyrica] 200 mg PO TID Potassium Chloride ER [K-Dur 10] 10 meq PO DAILY Losartan Potassium 100 mg PO DAILY Budesonide/Formoterol Fumarate [Symbicort 160-4.5 Mcg Inhaler] 2 puff INHALATION RT-BID amLODIPine [Norvasc] 5 mg PO DAILY Ipratropium-Albuterol Nebulize [Duoneb 0.5 mg-3 mg/3 ml Soln] 3 ml INHALATION RT-Q4H PRN PRN Reason: Shortness Of Breath Furosemide [Lasix] 40 mg PO DAILY Discharge Medication List Multivitamin [Men's Multi-Vitamin] 1 tab PO DAILY 04/13/16 [History] Albuterol Inhaler [Ventolin Hfa Inhaler] 2 puff INHALATION RT-Q4H PRN 06/05/21 [History] Budesonide/Formoterol Fumarate [Symbicort 160-4.5 Mcg Inhaler] 2 puff INHALATION RT-BID 06/05/21 [History] Ergocalciferol [Vitamin D2 (1250 Mcg = 97922 Iu)] 1,250 mcg PO WEEKLY 06/05/21 [History] Famotidine [Pepcid] 20 mg PO BID 06/05/21 [History] Furosemide [Lasix] 40 mg PO DAILY 06/05/21 [History] Ipratropium-Albuterol Nebulize [Duoneb 0.5 mg-3 mg/3 ml Soln] 3 ml INHALATION RT-Q4H PRN 06/05/21 [History] Losartan Potassium 100 mg PO DAILY 06/05/21 [History] Potassium Chloride ER [K-Dur 10] 10 meq PO DAILY 06/05/21 [History] Pregabalin [Lyrica] 200 mg PO TID 06/05/21 [History] Tamsulosin [Flomax] 0.4 mg PO DAILY 06/05/21 [History] Venlafaxine HCl [Effexor XR] 150 mg PO DAILY 06/05/21 [History] amLODIPine [Norvasc] 5 mg PO DAILY 06/05/21 [History] guaiFENesin [Mucinex] 1,200 mg PO Q12HR #14 tablet 06/07/21 [Rx] predniSONE [Deltasone] 40 mg PO DAILY #10 tab 06/07/21 [Rx] Follow up Appointment(s)/Referral(s): Bill De León MD [Primary Care Provider] - 1 Week Efrain Joshi MD [STAFF PHYSICIAN] - 06/15/21 1:45 pm Patient Instructions/Handouts: Using Oxygen at Home (DC), COPD (Chronic Obstructive Pulmonary Disease) (DC) Discharge Disposition: HOME SELF-CARE
[2021-06-07 11:58] VITALS: PULSE 80
[2021-06-12] MEDS ORDERED: ERGOCALCIFEROL 1,250 MCG (50,000 IU) CAPSULE PO SCH (12:00)
== END 2021-06-07 12:22 | disposition home or self-care (01) | DRG 190 ==
LOC: EC 09:56 → SUPCPDRO 09:56 → 3SCARD 11:56
PROVIDERS: ADMIT Internal Medicine; ATTEND Internal Medicine
DX: J44.1 Chronic obstructive pulmonary disease with (acute) exacerbation (principal); J96.21 Acute and chronic respiratory failure with hypoxia; I50.32 Chronic diastolic (congestive) heart failure; I11.0 Hypertensive heart disease with heart failure; Z23 Encounter for immunization; Z79.51 Long term (current) use of inhaled steroids; Z79.899 Other long term (current) drug therapy; Z99.81 Dependence on supplemental oxygen; N40.0 Benign prostatic hyperplasia without lower urinary tract symptoms; G47.30 Sleep apnea, unspecified; F17.210 Nicotine dependence, cigarettes, uncomplicated; E66.01 Morbid (severe) obesity due to excess calories; D69.6 Thrombocytopenia, unspecified
CPT/HCPCS: 36415; 71046; 80053; 83605; 83735; 83880; 84484; 85025; 85379; 85610; 85730; 93005; 94640; 94660; 94760; 96372; 96374; 99291

== ENCOUNTER 2022-01-26 08:26 | Observation (INO) | payer MEDICARE ==
[2022-01-26] MEDS ORDERED: methylPREDNISolone SOD SUCCI 125 MG/2 ML VIAL IV STA (08:41)
[2022-01-26 09:28] LABS: Basophils # (A) 0.1 k/uL (0-0.2); Basophils % (A) 1 %; Eosinophils # (A) 0.5 k/uL (0-0.7); Eosinophils % (A) 6 %; HCT 43.9 % (39.0-53.0); Lymphocytes # (A) 1.7 k/uL (1.0-4.8); Lymphocytes % (A) 21 %; MCH 31.7 pg (25.0-35.0); MCHC 34.1 g/dL (31.0-37.0); MCV 92.9 fL (80.0-100.0); Mean Platelet Volume 8.8; Monocytes # (A) 0.5 k/uL (0-1.0); Monocytes % (A) 6 %; Neutrophils # (A) 5.5 k/uL (1.3-7.7); Neutrophils % (A) 65 %; Platelet Count 122 k/uL (150-450); RBC 4.73 m/uL (4.30-5.90); RDW 14.9 % (11.5-15.5); WBC 8.5 k/uL (3.8-10.6)
--- NOTE | 2022-01-26 09:28 | ED ---
SOB HPI - General Chief Complaint: Shortness of Breath Stated Complaint: NAVIN Time Seen by Provider: 01/26/22 08:28 Source: patient, EMS, RN notes reviewed Mode of arrival: EMS Limitations: no limitations - History of Present Illness Initial Comments: 66-year-old male presents emergency Department with chief complaint of shortness breath. Patient states she's been having increasing shortness breath the last couple days. Patient is a former smoker has history of COPD. Patient states that he said no fevers or chills no chest pain states her some tightness of his lungs. Patient was given DuoNeb treatments by EMS which greatly improved patient's symptoms. Patient denies any leg pain or leg swelling of the usual. Patient states he does see Dr. Joshi. - Related Data Home Medications Medication Instructions Recorded Confirmed Multivitamin [Men's Multi-Vitamin] 1 tab PO DAILY 04/13/16 01/26/22 Albuterol Inhaler [Ventolin Hfa 2 puff INHALATION RT-Q4H PRN 06/05/21 01/26/22 Inhaler] Budesonide/Formoterol Fumarate 2 puff INHALATION RT-BID 06/05/21 01/26/22 [Symbicort 160-4.5 Mcg Inhaler] Ergocalciferol [Vitamin D2 (1250 1,250 mcg PO VALENCIA 06/05/21 01/26/22 Mcg = 08280 Iu)] Famotidine [Pepcid] 20 mg PO AC-BID 06/05/21 01/26/22 Furosemide [Lasix] 40 mg PO DAILY 06/05/21 01/26/22 Ipratropium-Albuterol Nebulize 3 ml INHALATION RT-Q4H PRN 06/05/21 01/26/22 [Duoneb 0.5 mg-3 mg/3 ml Soln] Losartan Potassium 100 mg PO DAILY 06/05/21 01/26/22 Potassium Chloride ER [K-Dur 10] 10 meq PO DAILY 06/05/21 01/26/22 Pregabalin [Lyrica] 200 mg PO TID 06/05/21 01/26/22 Tamsulosin [Flomax] 0.4 mg PO HS 06/05/21 01/26/22 Venlafaxine HCl [Effexor XR] 150 mg PO DAILY 06/05/21 01/26/22 amLODIPine [Norvasc] 5 mg PO DAILY 06/05/21 01/26/22 Albuterol Nebulized [Ventolin 2.5 mg INHALATION RT-QID PRN 01/26/22 01/26/22 Nebulized] Aspirin EC [Ecotrin Low Dose] 81 mg PO BID 01/26/22 01/26/22 Rivaroxaban [Xarelto] 2.5 mg PO DAILY 01/26/22 01/26/22 Allergies Allergy/AdvReac Type Severity Reaction Status Date / Time aspirin AdvReac High doses Verified 01/26/22 10:34 cause abdominal pain latex AdvReac Tears skin Verified 01/26/22 10:34 Review of Systems ROS Statement: Those systems with pertinent positive or pertinent negative responses have been documented in the HPI. ROS Other: All systems not noted in ROS Statement are negative. Past Medical History Past Medical History: COPD History of Any Multi-Drug Resistant Organisms: None Reported Past Surgical History: Joint Replacement, Orthopedic Surgery Additional Past Surgical History / Comment(s): Colonoscopy, Carpel Tunnel Past Anesthesia/Blood Transfusion Reactions: No Reported Reaction Past Psychological History: No Psychological Hx Reported Smoking Status: Former smoker Past Alcohol Use History: Rare Past Drug Use History: Marijuana - Past Family History Mother Family Medical History: No Reported History General Exam Limitations: no limitations General appearance: alert, in no apparent distress Head exam: Present: atraumatic, normocephalic, normal inspection Eye exam: Present: normal appearance, PERRL, EOMI. Absent: scleral icterus, conjunctival injection, periorbital swelling ENT exam: Present: normal exam, mucous membranes moist Neck exam: Present: normal inspection, full ROM. Absent: tenderness, meningismus, lymphadenopathy Respiratory exam: Present: respiratory distress, wheezes, decreased breath sounds. Absent: normal lung sounds bilaterally, rales, rhonchi, stridor Cardiovascular Exam: Present: regular rate, normal rhythm, normal heart sounds. Absent: systolic murmur, diastolic murmur, rubs, gallop, clicks Neurological exam: Present: alert, oriented X3, CN II-XII intact Course Vital Signs 01/26/22 01/26/22 01/26/22 08:29 08:39 09:33 Temperature 98.0 F Pulse Rate 93 68 Respiratory 22 24 20 Rate Blood Pressure 160/79 119/82 O2 Sat by Pulse 97 98 Oximetry Medical Decision Making - Medical Decision Making 66-year-old presented for dyspnea. Patient's offers dependent COPD her. Patient states he still feels short of breath having extreme respirator distress with ambulation. Patient will be admitted for IV steroids, treatments - Lab Data Result diagrams: 01/26/22 08:43 01/26/22 08:43 Lab Results 01/26/22 01/26/22 01/26/22 Range/Units 08:43 08:43 08:43 WBC 8.5 (3.8-10.6) k/uL RBC 4.73 (4.30-5.90) m/uL Hgb 15.0 (13.0-17.5) gm/dL Hct 43.9 (39.0-53.0) % MCV 92.9 (80.0-100.0) fL MCH 31.7 (25.0-35.0) pg MCHC 34.1 (31.0-37.0) g/dL RDW 14.9 (11.5-15.5) % Plt Count 122 L (150-450) k/uL MPV 8.8 Neutrophils % 65 % Lymphocytes % 21 % Monocytes % 6 % Eosinophils % 6 % Basophils % 1 % Neutrophils # 5.5 (1.3-7.7) k/uL Lymphocytes # 1.7 (1.0-4.8) k/uL Monocytes # 0.5 (0-1.0) k/uL Eosinophils # 0.5 (0-0.7) k/uL Basophils # 0.1 (0-0.2) k/uL PT 10.9 (9.0-12.0) sec INR 1.0 (<1.2) APTT 26.7 (22.0-30.0) sec Sodium 141 (137-145) mmol/L Potassium 4.4 (3.5-5.1) mmol/L Chloride 98 (98-107) mmol/L Carbon Dioxide 37 H (22-30) mmol/L Anion Gap 6 mmol/L BUN 15 (9-20) mg/dL Creatinine 1.12 (0.66-1.25) mg/dL Est GFR (CKD-EPI)AfAm 80 (>60 ml/min/1.73 sqM) Est GFR (CKD-EPI)NonAf 69 (>60 ml/min/1.73 sqM) Glucose 112 H (74-99) mg/dL Plasma Lactic Acid [place] (0.7-2.0) mmol/L Calcium 9.1 (8.4-10.2) mg/dL Magnesium 2.2 (1.6-2.3) mg/dL Total Bilirubin 0.8 (0.2-1.3) mg/dL AST 38 (17-59) U/L ALT 44 (4-49) U/L Alkaline Phosphatase 91 (38-126) U/L Troponin I (0.000-0.034) ng/mL NT-Pro-B Natriuret Pep pg/mL Total Protein 7.3 (6.3-8.2) g/dL Albumin 4.1 (3.5-5.0) g/dL Coronavirus (PCR) (Not Detectd) 01/26/22 01/26/22 01/26/22 Range/Units 08:43 08:43 08:43 WBC (3.8-10.6) k/uL RBC (4.30-5.90) m/uL Hgb (13.0-17.5) gm/dL Hct (39.0-53.0) % MCV (80.0-100.0) fL MCH (25.0-35.0) pg MCHC (31.0-37.0) g/dL RDW (11.5-15.5) % Plt Count (150-450) k/uL MPV Neutrophils % % Lymphocytes % % Monocytes % % Eosinophils % % Basophils % % Neutrophils # (1.3-7.7) k/uL Lymphocytes # (1.0-4.8) k/uL Monocytes # (0-1.0) k/uL Eosinophils # (0-0.7) k/uL Basophils # (0-0.2) k/uL PT (9.0-12.0) sec INR (<1.2) APTT (22.0-30.0) sec Sodium (137-145) mmol/L Potassium (3.5-5.1) mmol/L Chloride (98-107) mmol/L Carbon Dioxide (22-30) mmol/L Anion Gap mmol/L BUN (9-20) mg/dL Creatinine (0.66-1.25) mg/dL Est GFR (CKD-EPI)AfAm (>60 ml/min/1.73 sqM) Est GFR (CKD-EPI)NonAf (>60 ml/min/1.73 sqM) Glucose (74-99) mg/dL Plasma Lactic Acid [place] 1.0 (0.7-2.0) mmol/L Calcium (8.4-10.2) mg/dL Magnesium (1.6-2.3) mg/dL Total Bilirubin (0.2-1.3) mg/dL AST (17-59) U/L ALT (4-49) U/L Alkaline Phosphatase (38-126) U/L Troponin I 0.014 (0.000-0.034) ng/mL NT-Pro-B Natriuret Pep 14 pg/mL Total Protein (6.3-8.2) g/dL Albumin (3.5-5.0) g/dL Coronavirus (PCR) (Not Detectd) 01/26/22 Range/Units 08:43 WBC (3.8-10.6) k/uL RBC (4.30-5.90) m/uL Hgb (13.0-17.5) gm/dL Hct (39.0-53.0) % MCV (80.0-100.0) fL MCH (25.0-35.0) pg MCHC (31.0-37.0) g/dL RDW (11.5-15.5) % Plt Count (150-450) k/uL MPV Neutrophils % % Lymphocytes % % Monocytes % % Eosinophils % % Basophils % % Neutrophils # (1.3-7.7) k/uL Lymphocytes # (1.0-4.8) k/uL Monocytes # (0-1.0) k/uL Eosinophils # (0-0.7) k/uL Basophils # (0-0.2) k/uL PT (9.0-12.0) sec INR (<1.2) APTT (22.0-30.0) sec Sodium (137-145) mmol/L Potassium (3.5-5.1) mmol/L Chloride (98-107) mmol/L Carbon Dioxide (22-30) mmol/L Anion Gap mmol/L BUN (9-20) mg/dL Creatinine (0.66-1.25) mg/dL Est GFR (CKD-EPI)AfAm (>60 ml/min/1.73 sqM) Est GFR (CKD-EPI)NonAf (>60 ml/min/1.73 sqM) Glucose (74-99) mg/dL Plasma Lactic Acid [place] (0.7-2.0) mmol/L Calcium (8.4-10.2) mg/dL Magnesium (1.6-2.3) mg/dL Total Bilirubin (0.2-1.3) mg/dL AST (17-59) U/L ALT (4-49) U/L Alkaline Phosphatase (38-126) U/L Troponin I (0.000-0.034) ng/mL NT-Pro-B Natriuret Pep pg/mL Total Protein (6.3-8.2) g/dL Albumin (3.5-5.0) g/dL Coronavirus (PCR) Not Detected (Not Detectd) Disposition Clinical Impression: Acute exacerbation of chronic obstructive pulmonary disease Disposition: ADMITTED IP TO THIS HOSP Condition: Fair Referrals: Bill De León MD [Primary Care Provider] - 1-2 days Time of Disposition: 10:18
[2022-01-26 09:34] LABS: Partial Thromboplastin Time 26.7 sec (22.0-30.0); Prothrombin Time 10.9 sec (9.0-12.0)
--- NOTE | 2022-01-26 09:41 | XR ---
EXAMINATION TYPE: XR chest 2V DATE OF EXAM: 01/26/2022 COMPARISON: 06/05/21 HISTORY: Shortness of breath TECHNIQUE: Frontal and lateral views of the chest are obtained. FINDINGS: Scattered senescent parenchymal changes noted. Hyperinflation compatible with COPD. No evidence for infiltrate. No evidence for atelectasis. Heart size is stable. Mediastinal structures are stable and grossly unremarkable. No evidence for hilar prominence. Degenerative changes dorsal spine. IMPRESSION: 1. No evidence for acute pulmonary disease.
[2022-01-26 09:45] LABS: Albumin 4.1 g/dL (3.5-5.0); Calcium 9.1 mg/dL (8.4-10.2); Magnesium 2.2 mg/dL (1.6-2.3); Potassium 4.4 mmol/L (3.5-5.1); Total Bilirubin 0.8 mg/dL (0.2-1.3); Total Protein 7.3 g/dL (6.3-8.2)
[2022-01-26] MEDS ORDERED: IPRATROPIUM-ALBUTEROL 3 ML NEB INHALATION STA (10:17)
[2022-01-26] MEDS ORDERED: IPRATROPIUM-ALBUTEROL 3 ML NEB INHALATION PRN ×2 (10:40→15:05)
[2022-01-26] MEDS ORDERED: methylPREDNISolone SOD SUCCI 125 MG/2 ML VIAL IV SCH (12:00)
[2022-01-26] MEDS: IPRATROPIUM-ALBUTEROL 3 ML NEB INHALATION SCH ×3 (12:01→19:30)
[2022-01-26] MEDS ORDERED: ALBUTEROL HFA INHALER INHALATION PRN (15:05)
[2022-01-26] MEDS ORDERED: ALBUTEROL NEBULIZED 2.5 MG/3 ML INHALATION PRN (15:05)
[2022-01-26] MEDS: PREGABALIN 100 MG CAP PO SCH ×2 (15:12→21:04)
[2022-01-26] MEDS: methylPREDNISolone SOD SUCCI 125 MG/2 ML VIAL IV SCH ×2 (15:13→21:11)
--- NOTE | 2022-01-26 15:20 | P.HPIM ---
History of Present Illness H&P Date: 01/26/22 Chief Complaint: Shortness of breath 66-year-old male presents emergency Department with chief complaint of shortness breath. Patient states she's been having increasing shortness breath the last couple days. Patient is a former smoker has history of COPD. Patient states t hat he said no fevers or chills no chest pain states her some tightness of his lungs. Patient was given DuoNeb treatments by EMS which greatly improved patient's symptoms. Patient denies any leg pain or leg swelling of the usual. Patient states he does see Dr. Joshi. Patient was examined under fluoroscopy is currently on 2 L oxygen which is baseline. He is already feeling better after he received IV steroids and breathing treatment in emergency room. Patient denies any fever or chills. He denies any nausea vomiting abdominal pain or change in bowel movement. He denies any recent travel or sick contact Review of Systems All 14 review of systems evaluated and all negative except for above. Past Medical History Past Medical History: Heart Failure, COPD, GERD/Reflux, Hypertension, Osteoarthritis (OA), Pneumonia, Prostate Disorder, Respiratory Disorder, Sleep Apnea/CPAP/BIPAP Additional Past Medical History / Comment(s): Chronic hypoxic respiratory failure, home oxygen at 2L/NC ATC, pt states he was placed on xarelto d/t his lung condition, MANDY with Cpap, neuropathy bilateral legs knees down thru toes, occasional bilateral lower leg/pedal edema, BPH, benign colon polyps years ago. History of Any Multi-Drug Resistant Organisms: None Reported Past Surgical History: Joint Replacement, Orthopedic Surgery, Tonsillectomy Additional Past Surgical History / Comment(s): Bilateral total hip arthroplasties, L carpal tunnel release, R patella tendon release twice, colonoscopy/polypectomy Past Anesthesia/Blood Transfusion Reactions: No Reported Reaction Smoking Status: Former smoker - Past Family History Mother Family Medical History: No Reported History Additional Family Medical History / Comment(s): Mother is healthy and 89yrs old. Father Family Medical History: No Reported History Additional Family Medical History / Comment(s): Father is healthy and 90yrs old. Medications and Allergies Home Medications Medication Instructions Recorded Confirmed Type Multivitamin [Men's Multi-Vitamin] 1 tab PO DAILY 04/13/16 01/26/22 History Albuterol Inhaler [Ventolin Hfa 2 puff INHALATION RT-Q4H PRN 06/05/21 01/26/22 History Inhaler] Budesonide/Formoterol Fumarate 2 puff INHALATION RT-BID 06/05/21 01/26/22 History [Symbicort 160-4.5 Mcg Inhaler] Ergocalciferol [Vitamin D2 (1250 1,250 mcg PO VALENCIA 06/05/21 01/26/22 History Mcg = 81612 Iu)] Famotidine [Pepcid] 20 mg PO AC-BID 06/05/21 01/26/22 History Furosemide [Lasix] 40 mg PO DAILY 06/05/21 01/26/22 History Ipratropium-Albuterol Nebulize 3 ml INHALATION RT-Q4H PRN 06/05/21 01/26/22 History [Duoneb 0.5 mg-3 mg/3 ml Soln] Losartan Potassium 100 mg PO DAILY 06/05/21 01/26/22 History Potassium Chloride ER [K-Dur 10] 10 meq PO DAILY 06/05/21 01/26/22 History Pregabalin [Lyrica] 200 mg PO TID 06/05/21 01/26/22 History Tamsulosin [Flomax] 0.4 mg PO HS 06/05/21 01/26/22 History Venlafaxine HCl [Effexor XR] 150 mg PO DAILY 06/05/21 01/26/22 History amLODIPine [Norvasc] 5 mg PO DAILY 06/05/21 01/26/22 History Albuterol Nebulized [Ventolin 2.5 mg INHALATION RT-QID PRN 01/26/22 01/26/22 History Nebulized] Aspirin EC [Ecotrin Low Dose] 81 mg PO BID 01/26/22 01/26/22 History Rivaroxaban [Xarelto] 2.5 mg PO DAILY 01/26/22 01/26/22 History Allergies Allergy/AdvReac Type Severity Reaction Status Date / Time aspirin AdvReac High doses Verified 01/26/22 10:34 cause abdominal pain latex AdvReac Tears skin Verified 01/26/22 10:34 Physical Exam Vitals: Vital Signs Temp Pulse Pulse Resp BP BP Pulse Ox 01/26/22 14:53 98 F 71 14 130/77 96 01/26/22 12:52 20 01/26/22 12:40 97.7 F 72 12 121/80 98 01/26/22 12:09 72 01/26/22 12:01 70 01/26/22 11:51 97.8 F 66 20 113/54 97 01/26/22 10:52 68 01/26/22 10:39 67 01/26/22 09:33 68 20 119/82 98 01/26/22 08:39 24 01/26/22 08:29 98.0 F 93 22 160/79 97 Intake and Output 01/26/22 01/26/22 01/26/22 06:59 14:59 22:59 Intake Total 100 Balance 100 Intake: Oral 100 Other: Voiding Method Toilet Weight 131.542 kg General: non toxic, no distress, appears at stated age. Obese Derm: warm, dry Head: atraumatic, normocephalic, symmetric Eyes: EOMI, no lid lag, anicteric sclera Mouth: no lip lesion, mucus membranes moist Cardiovascular: S1S2 reg, no murmur, positive posterior tibial pulse bilateral, Lungs: CTA bilateral, no rhonchi, no rales , no accessory muscle use Abdominal: soft, nontender to palpation, no guarding, no appreciable organomegaly Ext: Bilateral lower extremity 1+ edema. no gross muscle atrophy, no edema, no contractures Neuro: CN II-XI grossly intact, no focal neuro deficits Psych: Alert, oriented, appropriate affect Results CBC & Chem 7: 01/26/22 08:43 01/26/22 08:43 Labs: Abnormal Lab Results - Last 24 Hours (Table) 01/26/22 01/26/22 Range/Units 08:43 08:43 Plt Count 122 L (150-450) k/uL Carbon Dioxide 37 H (22-30) mmol/L Glucose 112 H (74-99) mg/dL Thrombosis Risk Factor Assmnt - Choose All That Apply Any of the Below Risk Factors Present?: Yes Each Factor Represents 1 point: Abnormal pulmonary function (COPD), Obesity (BMI >25) Other Risk Factors: Yes Each Risk Factor Represents 2 Points: Age 61-74 years Other congenital or acquired thrombophilia - If yes, enter type in comment: No Thrombosis Risk Factor Assessment Total Risk Factor Score: 4 Thrombosis Risk Factor Assessment Level: Moderate Risk Assessment and Plan Assessment: Assessment and plan: #Acute COPD exacerbation -Resume IV steroids -Resume breathing treatments -And 71 discharged tomorrow in the morning on prednisone 40 mg daily 4 days #Acute on chronic hypoxic respiratory failure -Secondary to above -Improved after IV steroids and breathing treatment currently is on 2 L #Morbid obesity BMI 40. Obstructive sleep apnea #Chronic bilateral lower extremity edema -History of diastolic chronic dysfunction CHF -No evidence of acute CHF on chest x-ray -Patient on Lasix at home -Could be secondary to chronic right-sided heart failure #Peripheral neuropathy -Resume Lyrica #Hypertension -Resume Norvasc #Benign prostatic hypertrophy -Resume Flomax
[2022-01-26] MEDS: FAMOTIDINE 20 MG TAB PO SCH (17:35)
--- NOTE | 2022-01-26 18:15 | P.CNPUL ---
History of Present Illness Consult date: 01/26/22 Reason for consult: dyspnea, cough, COPD, hypoxemia, obstructive sleep apnea Chief complaint: Progressive shortness of breath for last 2 days History of present illness: This is a morbidly obese 66-year-old male well-known to me with prior medical history of end-stage lung disease on home oxygen, patient has been active smoker up to May 2021 quit smoking at that time. Patient is on home nebulizer machine also has sleep disorder breathing and sleep apnea patient is in process of getting a new CPAP machine as prior machine is not providing adequate support with pressure. Patient was complaining of shortness of breath which she feels getting worse in the last 2 days up to a point earlier today while taking ne bulizer developed severe shortness of breath and wheezing and chest tightness decided to come into the hospital for further evaluation on specific questioning denies any loss of consciousness), denies any chest pain or radiation of pain, intermittent dry cough is present, shortness of breath was more than a slide along with wheezing, denies any hemoptysis, denies any bowel or bladder problem, patient has a sleep disorder breathing and sleep apnea currently in process of getting sleep studies and a change of CPAP machine. He is admitted chest x-ray consistent with COPD. Labs were significant for mild thrombocytopenia with a platelet count of 122 CO2 was 37, and covert is negative. Patient has been started on bronchodilators with DuoNeb along with continuation of his home medications including direct oral anticoagulant and IV steroids Review of Systems All systems: negative Past Medical History Past Medical History: Heart Failure, COPD, GERD/Reflux, Hypertension, Osteoarthritis (OA), Pneumonia, Prostate Disorder, Respiratory Disorder, Sleep Apnea/CPAP/BIPAP Additional Past Medical History / Comment(s): Chronic hypoxic respiratory failure, home oxygen at 2L/NC ATC, pt states he was placed on xarelto d/t his lung condition, MANDY with Cpap, neuropathy bilateral legs knees down thru toes, occasional bilateral lower leg/pedal edema, BPH, benign colon polyps years ago. History of Any Multi-Drug Resistant Organisms: None Reported Past Surgical History: Joint Replacement, Orthopedic Surgery, Tonsillectomy Additional Past Surgical History / Comment(s): Bilateral total hip arthroplasties, L carpal tunnel release, R patella tendon release twice, colonoscopy/polypectomy Past Anesthesia/Blood Transfusion Reactions: No Reported Reaction Smoking Status: Former smoker - Past Family History Mother Family Medical History: No Reported History Additional Family Medical History / Comment(s): Mother is healthy and 89yrs old. Father Family Medical History: No Reported History Additional Family Medical History / Comment(s): Father is healthy and 90yrs old. Medications and Allergies Home Medications Medication Instructions Recorded Confirmed Type Multivitamin [Men's Multi-Vitamin] 1 tab PO DAILY 04/13/16 01/26/22 History Albuterol Inhaler [Ventolin Hfa 2 puff INHALATION RT-Q4H PRN 06/05/21 01/26/22 History Inhaler] Budesonide/Formoterol Fumarate 2 puff INHALATION RT-BID 06/05/21 01/26/22 History [Symbicort 160-4.5 Mcg Inhaler] Ergocalciferol [Vitamin D2 (1250 1,250 mcg PO VALENCIA 06/05/21 01/26/22 History Mcg = 46800 Iu)] Famotidine [Pepcid] 20 mg PO AC-BID 06/05/21 01/26/22 History Furosemide [Lasix] 40 mg PO DAILY 06/05/21 01/26/22 History Ipratropium-Albuterol Nebulize 3 ml INHALATION RT-Q4H PRN 06/05/21 01/26/22 History [Duoneb 0.5 mg-3 mg/3 ml Soln] Losartan Potassium 100 mg PO DAILY 06/05/21 01/26/22 History Potassium Chloride ER [K-Dur 10] 10 meq PO DAILY 06/05/21 01/26/22 History Pregabalin [Lyrica] 200 mg PO TID 06/05/21 01/26/22 History Tamsulosin [Flomax] 0.4 mg PO HS 06/05/21 01/26/22 History Venlafaxine HCl [Effexor XR] 150 mg PO DAILY 06/05/21 01/26/22 History amLODIPine [Norvasc] 5 mg PO DAILY 06/05/21 01/26/22 History Albuterol Nebulized [Ventolin 2.5 mg INHALATION RT-QID PRN 01/26/22 01/26/22 History Nebulized] Aspirin EC [Ecotrin Low Dose] 81 mg PO BID 01/26/22 01/26/22 History Rivaroxaban [Xarelto] 2.5 mg PO DAILY 01/26/22 01/26/22 History Allergies Allergy/AdvReac Type Severity Reaction Status Date / Time aspirin AdvReac High doses Verified 01/26/22 10:34 cause abdominal pain latex AdvReac Tears skin Verified 01/26/22 10:34 Physical Exam Vitals: Vital Signs Temp Pulse Pulse Resp BP BP Pulse Ox 01/26/22 15:26 71 01/26/22 15:15 86 01/26/22 14:53 98 F 71 14 130/77 96 01/26/22 12:52 20 01/26/22 12:40 97.7 F 72 12 121/80 98 01/26/22 12:09 72 01/26/22 12:01 70 01/26/22 11:51 97.8 F 66 20 113/54 97 01/26/22 10:52 68 01/26/22 10:39 67 01/26/22 09:33 68 20 119/82 98 01/26/22 08:39 24 01/26/22 08:29 98.0 F 93 22 160/79 97 Intake and Output 01/26/22 01/26/22 01/26/22 06:59 14:59 22:59 Intake Total 100 Balance 100 Intake: Oral 100 Other: Voiding Method Toilet Weight 131.542 kg - Constitutional General appearance: cooperative, disheveled - EENT Eyes: EOMI, PERRLA ENT: normal oropharynx Ears: bilateral: normal - Neck Neck: normal ROM Carotids: bilateral: upstroke normal Thyroid: bilateral: normal size - Respiratory Respiratory: bilateral: diminished, wheezing (Fine expiratory on forced expiration) - Cardiovascular Rhythm: regular Heart sounds: normal: S1, S2 - Gastrointestinal General gastrointestinal: normal bowel sounds, soft - Integumentary Integumentary: normal turgor - Neurologic Neurologic: CNII-XII intact - Musculoskeletal Musculoskeletal: gait normal, generalized weakness, strength equal bilaterally - Psychiatric Psychiatric: A&O x's 3, appropriate affect, intact judgment & insight Results - Laboratory Findings CBC and BMP: 01/26/22 08:43 01/26/22 08:43 PT/INR, D-dimer PT 10.9 sec (9.0-12.0) 01/26/22 08:43 INR 1.0 (<1.2) 01/26/22 08:43 Abnormal lab findings: Abnormal Labs 01/26/22 01/26/22 08:43 08:43 Plt Count 122 L Carbon Dioxide 37 H Glucose 112 H - Diagnostic Findings Chest x-ray: report reviewed, image reviewed (Finding as noted above) Assessment and Plan Assessment: Acute COPD exacerbation Chronic hypoxic respiratory failure on home oxygen Sleep disorder breathing and sleep apnea on CPAP at home Morbid obesity Chronic congestive heart failure/diastolic heart failure Mild thrombocytopenia Hypertension hypertensive cardiovascular disease Plan: Continue supplemental oxygen keep saturation over 90% and above Bronchodilators IV steroids Continue home medications and supportive care Continue deep breathing sense incentive spirometry Patient can be continued on CPAP machine from home Further recommendations pending plan of care as per clinical response of the patient Time with Patient: Greater than 30
[2022-01-26] MEDS: SYMBICORT 160-4.5 MCG INHALER INHALATION SCH (19:30)
[2022-01-26] MEDS ORDERED: TAMSULOSIN 0.4 MG CAP.ER.24H PO SCH (21:00)
[2022-01-26] MEDS: ASPIRIN 81 MG PO SCH (21:04)
[2022-01-27] MEDS: methylPREDNISolone SOD SUCCI 125 MG/2 ML VIAL IV SCH (02:58)
[2022-01-27 06:50] LABS: Glucose,Whole Blood 150 mg/dL (75-99)
[2022-01-27 07:48] VITALS: BP 134/75; RESP 12; TEMP 97.4
[2022-01-27] MEDS: IPRATROPIUM-ALBUTEROL 3 ML NEB INHALATION SCH ×2 (08:05→11:53)
[2022-01-27] MEDS: SYMBICORT 160-4.5 MCG INHALER INHALATION SCH (08:05)
[2022-01-27] MEDS: ASPIRIN 81 MG PO SCH (08:06)
[2022-01-27] MEDS: FAMOTIDINE 20 MG TAB PO SCH (08:07)
[2022-01-27] MEDS: PREGABALIN 100 MG CAP PO SCH (08:07)
[2022-01-27] MEDS ORDERED: VENLAFAXINE HCL ER 150 MG CAP PO SCH (09:00)
[2022-01-27] MEDS ORDERED: POTASSIUM CHLORIDE ER 10 MEQ TAB.ER.PRT PO SCH (09:00)
[2022-01-27] MEDS ORDERED: amLODIPine 5 MG TAB PO SCH (09:00)
[2022-01-27] MEDS ORDERED: LOSARTAN 50 MG TAB PO SCH (09:00)
[2022-01-27] MEDS ORDERED: RIVAROXABAN 2.5 MG TABLET PO SCH (09:00)
[2022-01-27] MEDS ORDERED: MULTIVITAMINS, THERA 1 EACH TAB PO SCH (09:00)
[2022-01-27] MEDS ORDERED: FUROSEMIDE 40 MG TAB PO SCH (09:00)
[2022-01-27 09:45] LABS: Basophils # (A) 0.02 X 10*3/uL (0.00-0.10); Basophils % (A) 0.2 %; Eosinophils # (A) 0 X 10*3/uL (0.04-0.35); Eosinophils % (A) 0 %; HCT 44.2 % (39.6-50.0); HGB 14.4 g/dL (13.0-17.0); Immature Grans, Automated 1.1 %; Lymphocytes % (A) 6.8 %; MCH 30.1 pg (27.0-32.0); MCHC 32.6 g/dL (32.0-37.0); MCV 92.3 fL (80.0-97.0); Mean Platelet Volume 11.7 fL (9.5-12.2); Monocytes # (A) 0.22 X 10*3/uL (0.20-1.00); Monocytes % (A) 1.9 %; NRBC Per 100 WBC 0 /100 WBCS (0.0-0.0); Neutrophils # (A) 10.54 X 10*3/uL (1.80-7.70); Platelet Count 137 X 10*3/uL (140-440); RBC 4.79 X 10*6/uL (4.40-5.60); RDW 13.7 % (11.5-14.5); WBC 11.71 X 10*3/uL (4.50-10.00)
[2022-01-27 09:47] LABS: African American GFR (CKD) 91.1 (60.0-200.0); Anion Gap 11.4 mmol/L (10.00-18.00); BUN/Creat Ratio 17.8 Ratio (12.00-20.00); Blood Urea Nitrogen 17.8 mg/dL (9.0-27.0); Calcium 9.7 mg/dL (8.7-10.3); Carbon Dioxide 30.6 mmol/L (20.0-27.5); Non-African American GFR(CKD) 78.6 (60.0-200.0); Potassium 4.9 mmol/L (3.5-5.5)
--- NOTE | 2022-01-27 10:43 | P.DS ---
Providers Date of admission: 01/26/22 10:51 Expected date of discharge: 01/27/22 Attending physician: Chi Thorpe MD Consults: 01/26/22 10:40 Consult Physician Routine Consulting Provider: Efrain Joshi Consult Reason/Comments: COPD exacerbation Do you want consulting provider notified?: Yes 01/26/22 15:12 Consult Physician Routine Consulting Provider: Efrain Joshi Consult Reason/Comments: COPD exacerbation Do you want consulting provider notified?: Yes Primary care physician: Bill De León MD Hospital Course: 66-year-old male presents emergency Department with chief complaint of shortness breath. Patient states she's been having increasing shortness breath the last couple days. Patient is a former smoker has history of COPD. Patient states that he said no fevers or chills no chest pain states her some tightness of his lungs. Patient was given DuoNeb treatments by EMS which greatly improved patient's symptoms. Patient denies any leg pain or leg swelling of the usual. Patient states he does see Dr. Joshi. Patient was examined under fluoroscopy is currently on 2 L oxygen which is baseline. He is already feeling better after he received IV steroids and breathing treatment in emergency room. Patient denies any fever or chills. He denies any nausea vomiting abdominal pain or change in bowel movement. He denies any recent travel or sick contact Patient was admitted to hospital and observed overnight. He responded very with IV steroids and breathing treatments. He'll be discharged home with oral prednisone 40 mg daily for 5 days. Physical examination discharge: General: non toxic, no distress, appears at stated age. Obese Derm: warm, dry Head: atraumatic, normocephalic, symmetric Eyes: EOMI, no lid lag, anicteric sclera Mouth: no lip lesion, mucus membranes moist Cardiovascular: S1S2 reg, no murmur, positive posterior tibial pulse bilateral, Lungs: CTA bilateral, no rhonchi, no rales , no accessory muscle use Abdominal: soft, nontender to palpation, no guarding, no appreciable organomegaly Ext: no gross muscle atrophy, no edema, no contractures Neuro: CN II-XI grossly intact, no focal neuro deficits Psych: Alert, oriented, appropriate affect Patient Condition at Discharge: Stable Plan - Discharge Summary Discharge Rx Participant: No New Discharge Prescriptions: New predniSONE [Deltasone] 40 mg PO DAILY 5 Days #10 tab Continue Multivitamin [Men's Multi-Vitamin] 1 tab PO DAILY Ergocalciferol [Vitamin D2 (1250 Mcg = 68020 Iu)] 1,250 mcg PO VALENCIA Venlafaxine HCl [Effexor XR] 150 mg PO DAILY Famotidine [Pepcid] 20 mg PO AC-BID Albuterol Inhaler [Ventolin Hfa Inhaler] 2 puff INHALATION RT-Q4H PRN PRN Reason: Shortness Of Breath Aspirin EC [Ecotrin Low Dose] 81 mg PO BID Albuterol Nebulized [Ventolin Nebulized] 2.5 mg INHALATION RT-QID PRN PRN Reason: Shortness Of Breath Tamsulosin [Flomax] 0.4 mg PO HS Pregabalin [Lyrica] 200 mg PO TID Potassium Chloride ER [K-Dur 10] 10 meq PO DAILY Losartan Potassium 100 mg PO DAILY Budesonide/Formoterol Fumarate [Symbicort 160-4.5 Mcg Inhaler] 2 puff INHALATION RT-BID amLODIPine [Norvasc] 5 mg PO DAILY Ipratropium-Albuterol Nebulize [Duoneb 0.5 mg-3 mg/3 ml Soln] 3 ml INHALATION RT-Q4H PRN PRN Reason: Shortness Of Breath Furosemide [Lasix] 40 mg PO DAILY Rivaroxaban [Xarelto] 2.5 mg PO DAILY Discharge Medication List Multivitamin [Men's Multi-Vitamin] 1 tab PO DAILY 04/13/16 [History] Albuterol Inhaler [Ventolin Hfa Inhaler] 2 puff INHALATION RT-Q4H PRN 06/05/21 [History] Budesonide/Formoterol Fumarate [Symbicort 160-4.5 Mcg Inhaler] 2 puff INHALATION RT-BID 06/05/21 [History] Ergocalciferol [Vitamin D2 (1250 Mcg = 32918 Iu)] 1,250 mcg PO VALENCIA 06/05/21 [History] Famotidine [Pepcid] 20 mg PO AC-BID 06/05/21 [History] Furosemide [Lasix] 40 mg PO DAILY 06/05/21 [History] Ipratropium-Albuterol Nebulize [Duoneb 0.5 mg-3 mg/3 ml Soln] 3 ml INHALATION RT-Q4H PRN 06/05/21 [History] Losartan Potassium 100 mg PO DAILY 06/05/21 [History] Potassium Chloride ER [K-Dur 10] 10 meq PO DAILY 06/05/21 [History] Pregabalin [Lyrica] 200 mg PO TID 06/05/21 [History] Tamsulosin [Flomax] 0.4 mg PO HS 06/05/21 [History] Venlafaxine HCl [Effexor XR] 150 mg PO DAILY 06/05/21 [History] amLODIPine [Norvasc] 5 mg PO DAILY 06/05/21 [History] Albuterol Nebulized [Ventolin Nebulized] 2.5 mg INHALATION RT-QID PRN 01/26/22 [History] Aspirin EC [Ecotrin Low Dose] 81 mg PO BID 01/26/22 [History] Rivaroxaban [Xarelto] 2.5 mg PO DAILY 01/26/22 [History] predniSONE [Deltasone] 40 mg PO DAILY 5 Days #10 tab 01/27/22 [Rx] Follow up Appointment(s)/Referral(s): Bill De León MD [Primary Care Provider] - 1-2 days Efrain Joshi MD [STAFF PHYSICIAN] - 1 Week Patient Instructions/Handouts: COPD (Chronic Obstructive Pulmonary Disease) (D C) Activity/Diet/Wound Care/Special Instructions: ACTIVITY TOLERATED HEART HEALTHY DIET TOLERATED Discharge Disposition: HOME SELF-CARE
[2022-01-27 12:05] VITALS: PULSE 93
[2022-01-30] MEDS ORDERED: ERGOCALCIFEROL 1,250 MCG (50,000 IU) CAPSULE PO SCH (09:00)
== END 2022-01-27 12:13 | disposition home or self-care (01) ==
LOC: EC 08:26 → 6NMEDSUR 10:51
PROVIDERS: ADMIT Internal Medicine; ATTEND Internal Medicine
DX: J44.1 Chronic obstructive pulmonary disease with (acute) exacerbation (principal); K21.9 Gastro-esophageal reflux disease without esophagitis; I11.0 Hypertensive heart disease with heart failure; I50.32 Chronic diastolic (congestive) heart failure; J96.21 Acute and chronic respiratory failure with hypoxia; M19.90 Unspecified osteoarthritis, unspecified site; G47.33 Obstructive sleep apnea (adult) (pediatric); G57.93 Unspecified mononeuropathy of bilateral lower limbs; N40.0 Benign prostatic hyperplasia without lower urinary tract symptoms; R60.9 Edema, unspecified; E66.01 Morbid (severe) obesity due to excess calories; Z68.41 Body mass index [BMI] 40.0-44.9, adult; G62.9 Polyneuropathy, unspecified; J98.4 Other disorders of lung; D69.6 Thrombocytopenia, unspecified; Z20.822 Contact with and (suspected) exposure to COVID-19; Z99.81 Dependence on supplemental oxygen; Z86.010 Personal history of colon polyps; Z96.643 Presence of artificial hip joint, bilateral; Z87.891 Personal history of nicotine dependence; Z87.01 Personal history of pneumonia (recurrent); Z79.899 Other long term (current) drug therapy; Z79.51 Long term (current) use of inhaled steroids; Z79.01 Long term (current) use of anticoagulants; Z79.82 Long term (current) use of aspirin; Z88.6 Allergy status to analgesic agent; Z91.040 Latex allergy status; Z71.9 Counseling, unspecified
CPT/HCPCS: 96376 ×2; 96374; 99285; 36415; 94660 ×2; 94640 ×4; 94760; 93005; 83880; 80053; 80048; 83605; 83735; 84484; 85025 ×2; 85610; 85730; 87635; 71046; G0378 ×2; J2930 ×2

== ENCOUNTER 2022-03-26 14:15 | Inpatient (IN) | payer MEDICARE ==
[2022-03-26] MEDS ORDERED: MAGNESIUM SULFATE-D5W PMX 2 GM in DEXTROSE/WATER 1 100ML.BAG IVPB STA (14:21)
[2022-03-26] MEDS ORDERED: IPRATROPIUM-ALBUTEROL 3 ML NEB INHALATION STA (14:21)
[2022-03-26] MEDS ORDERED: methylPREDNISolone SOD SUCCI 125 MG/2 ML VIAL IV STA (14:21)
--- NOTE | 2022-03-26 14:31 | ED ---
SOB HPI - General Chief Complaint: Shortness of Breath Stated Complaint: NAVIN Time Seen by Provider: 03/26/22 14:15 Source: patient, EMS, RN notes reviewed Mode of arrival: EMS Limitations: no limitations - History of Present Illness Initial Comments: 66-year-old male watching dependent on 2 L at home who has a history of COPD who states he woke up around 1 PM her short of breath. He took one of his home treatments and he states the breathing got worse. EMS was called he was transported here. Refused a more breathing treatments during the trip. No claims to chest pain he apparently look cyanotic initially per the encounter he was placed on 4 L of oxygen with upright positioning he was tripoding and again to Neck. He states upon arrival he is feeling somewhat improved however. No fevers chills sweats cough or phlegm production MD Complaint: shortness of breath - Related Data Home Medications Medication Instructions Recorded Confirmed Multivitamin [Men's Multi-Vitamin] 1 tab PO DAILY 04/13/16 03/26/22 Albuterol Inhaler [Ventolin Hfa 2 puff INHALATION RT-Q4H PRN 06/05/21 03/26/22 Inhaler] Budesonide/Formoterol Fumarate 2 puff INHALATION RT-BID 06/05/21 03/26/22 [Symbicort 160-4.5 Mcg Inhaler] Ergocalciferol [Vitamin D2 (1250 1,250 mcg PO VALENCIA 06/05/21 03/26/22 Mcg = 32978 Iu)] Furosemide [Lasix] 40 mg PO DAILY 06/05/21 03/26/22 Ipratropium-Albuterol Nebulize 3 ml INHALATION RT-Q4H PRN 06/05/21 03/26/22 [Duoneb 0.5 mg-3 mg/3 ml Soln] Losartan Potassium 100 mg PO DAILY 06/05/21 03/26/22 Potassium Chloride ER [K-Dur 10] 10 meq PO DAILY 06/05/21 03/26/22 Pregabalin [Lyrica] 200 mg PO TID 06/05/21 03/26/22 Tamsulosin [Flomax] 0.4 mg PO HS 06/05/21 03/26/22 Venlafaxine HCl [Effexor XR] 150 mg PO DAILY 06/05/21 03/26/22 amLODIPine [Norvasc] 5 mg PO DAILY 06/05/21 03/26/22 Allergies Allergy/AdvReac Type Severity Reaction Status Date / Time aspirin AdvReac High doses Verified 03/26/22 15:01 cause abdominal pain latex AdvReac Tears skin Verified 03/26/22 15:01 Review of Systems ROS Statement: Those systems with pertinent positive or pertinent negative responses have been documented in the HPI. ROS Other: All systems not noted in ROS Statement are negative. Past Medical History Past Medical History: Heart Failure, COPD, GERD/Reflux, Hypertension, Osteoarthritis (OA), Pneumonia, Prostate Disorder, Respiratory Disorder, Sleep Apnea/CPAP/BIPAP Additional Past Medical History / Comment(s): Chronic hypoxic respiratory failure, home oxygen at 2L/NC ATC, pt states he was placed on xarelto d/t his lung condition, MANDY with Cpap, neuropathy bilateral legs knees down thru toes, occasional bilateral lower leg/pedal edema, BPH, benign colon polyps years ago. History of Any Multi-Drug Resistant Organisms: None Reported Past Surgical History: Joint Replacement, Orthopedic Surgery, Tonsillectomy Additional Past Surgical History / Comment(s): Bilateral total hip art hroplasties, L carpal tunnel release, R patella tendon release twice, colonoscopy/polypectomy Past Anesthesia/Blood Transfusion Reactions: No Reported Reaction Past Psychological History: Depression Smoking Status: Former smoker - Past Family History Mother Family Medical History: No Reported History Additional Family Medical History / Comment(s): Mother is healthy and 89yrs old. Father Family Medical History: No Reported History Additional Family Medical History / Comment(s): Father is healthy and 90yrs old. General Exam - General Exam Comments Initial Comments: This is a well-developed well-nourished awake alert oriented 4 male he does demonstrate tachypnea no cyanotic appearance this time. Limitations: no limitations General appearance: alert, anxious, in distress Head exam: Present: atraumatic, normocephalic, normal inspection Eye exam: Present: normal appearance, PERRL, EOMI. Absent: scleral icterus, conjunctival injection, periorbital swelling ENT exam: Present: normal exam, mucous membranes moist Neck exam: Present: normal inspection, full ROM, other. Absent: tenderness, meningismus, lymphadenopathy Respiratory exam: Present: wheezes, accessory muscle use, decreased breath sounds (No stridor JVD or bruits). Absent: respiratory distress, rales, rhonchi, stridor Cardiovascular Exam: Present: normal rhythm, tachycardia, normal heart sounds. Absent: systolic murmur, diastolic murmur, rubs, gallop, clicks GI/Abdominal exam: Present: soft, normal bowel sounds. Absent: distended, tenderness, guarding, rebound, rigid Extremities exam: Present: normal inspection, full ROM, normal capillary refill. Absent: tenderness, pedal edema, joint swelling, calf tenderness Back exam: Present: normal inspection Neurological exam: Present: alert, oriented X3, CN II-XII intact Psychiatric exam: Present: normal affect, normal mood Skin exam: Present: warm, dry, intact, normal color. Absent: rash Course Vital Signs 03/26/22 03/26/22 03/26/22 14:17 14:25 14:36 Temperature 97.7 F Pulse Rate 107 H 100 99 Respiratory 22 22 18 Rate Blood Pressure 180/89 O2 Sat by Pulse 100 Oximetry 03/26/22 15:21 Temperature Pulse Rate 80 Respiratory 18 Rate Blood Pressure 129/69 O2 Sat by Pulse 96 Oximetry - Reevaluation(s) Reevaluation #1: 03/26/22 14:31 Reevaluation patient reveals some improvement skin color appears be within normal limits he still rather diminished over. Reevaluation #2: 03/26/22 16:33 Patient is showing improved saturations have improved color is improved. Medical Decision Making - Medical Decision Making I did discuss findings with the patient also with Dr. Yancey. They she'll be admitted for inpatient evaluation and treatment of COPD exacerbation respiratory distress - Lab Data Result diagrams: 03/26/22 14:23 03/26/22 14:23 Lab Results 03/26/22 03/26/22 03/26/22 Range/Units 14:23 14:23 14:23 WBC 8.5 (3.8-10.6) k/uL RBC 5.00 (4.30-5.90) m/uL Hgb 15.9 (13.0-17.5) gm/dL Hct 46.3 (39.0-53.0) % MCV 92.7 (80.0-100.0) fL MCH 31.9 (25.0-35.0) pg MCHC 34.4 (31.0-37.0) g/dL RDW 14.1 (11.5-15.5) % Plt Count 118 L (150-450) k/uL MPV 8.6 Neutrophils % 66 % Lymphocytes % 17 % Monocytes % 5 % Eosinophils % 9 % Basophils % 1 % Neutrophils # 5.6 (1.3-7.7) k/uL Lymphocytes # 1.4 (1.0-4.8) k/uL Monocytes # 0.4 (0-1.0) k/uL Eosinophils # 0.8 H (0-0.7) k/uL Basophils # 0.1 (0-0.2) k/uL PT 10.6 (9.0-12.0) sec INR 1.0 (<1.2) APTT 26.8 (22.0-30.0) sec Sodium 138 (137-145) mmol/L Potassium 4.4 (3.5-5.1) mmol/L Chloride 96 L (98-107) mmol/L Carbon Dioxide 37 H (22-30) mmol/L Anion Gap 5 mmol/L BUN 18 (9-20) mg/dL Creatinine 1.02 (0.66-1.25) mg/dL Est GFR (CKD-EPI)AfAm 89 (>60 ml/min/1.73 sqM) Est GFR (CKD-EPI)NonAf 77 (>60 ml/min/1.73 sqM) Glucose 116 H (74-99) mg/dL Plasma Lactic Acid Bolivar (0.7-2.0) mmol/L Calcium 9.3 (8.4-10.2) mg/dL Magnesium 2.0 (1.6-2.3) mg/dL Total Bilirubin 0.7 (0.2-1.3) mg/dL AST 41 (17-59) U/L ALT 49 (4-49) U/L Alkaline Phosphatase 90 (38-126) U/L Troponin I (0.000-0.034) ng/mL NT-Pro-B Natriuret Pep pg/mL Total Protein 7.5 (6.3-8.2) g/dL Albumin 4.4 (3.5-5.0) g/dL 03/26/22 03/26/22 03/26/22 Range/Units 14:23 14:23 14:23 WBC (3.8-10.6) k/uL RBC (4.30-5.90) m/uL Hgb (13.0-17.5) gm/dL Hct (39.0-53.0) % MCV (80.0-100.0) fL MCH (25.0-35.0) pg MCHC (31.0-37.0) g/dL RDW (11.5-15.5) % Plt Count (150-450) k/uL MPV Neutrophils % % Lymphocytes % % Monocytes % % Eosinophils % % Basophils % % Neutrophils # (1.3-7.7) k/uL Lymphocytes # (1.0-4.8) k/uL Monocytes # (0-1.0) k/uL Eosinophils # (0-0.7) k/uL Basophils # (0-0.2) k/uL PT (9.0-12.0) sec INR (<1.2) APTT (22.0-30.0) sec Sodium (137-145) mmol/L Potassium (3.5-5.1) mmol/L Chloride (98-107) mmol/L Carbon Dioxide (22-30) mmol/L Anion Gap mmol/L BUN (9-20) mg/dL Creatinine (0.66-1.25) mg/dL Est GFR (CKD-EPI)AfAm (>60 ml/min/1.73 sqM) Est GFR (CKD-EPI)NonAf (>60 ml/min/1.73 sqM) Glucose (74-99) mg/dL Plasma Lactic Acid [place]ivar 0.6 L (0.7-2.0) mmol/L Calcium (8.4-10.2) mg/dL Magnesium (1.6-2.3) mg/dL Total Bilirubin (0.2-1.3) mg/dL AST (17-59) U/L ALT (4-49) U/L Alkaline Phosphatase (38-126) U/L Troponin I <0.012 (0.000-0.034) ng/mL NT-Pro-B Natriuret Pep <11 pg/mL Total Protein (6.3-8.2) g/dL Albumin (3.5-5.0) g/dL - EKG Data -: EKG Interpreted by Me EKG shows normal: sinus rhythm EKG Comments: Sinus rhythm a 99. Interval 175 QRS duration 96 daily since QTC 335/391 low- voltage some artifact present - Radiology Data Radiology results: report reviewed (Imaging reviewed some increased markings no leonid no definitive pneumonia), image reviewed Disposition Clinical Impression: Acute exacerbation of chronic obstructive pulmonary disease, Acute respiratory distress syndrome in adult Disposition: ADMITTED IP TO THIS HOSP Condition: Stable Referrals: Bill De León MD [Primary Care Provider] - 1-2 days Decision Date: 03/26/22 Decision Time: 16:35
--- NOTE | 2022-03-26 14:44 | XR ---
EXAMINATION TYPE: XR chest 1V portable DATE OF EXAM: 03/26/2022 COMPARISON: 01/26/2022 HISTORY: Difficulty breathing TECHNIQUE: FINDINGS: There is no heart failure nor confluent pneumonic infiltrate. Costophrenic angles are clear . There are no hilar masses. Bony thorax is intact. There are slight increased markings at the lung b ases. IMPRESSION: No active cardiopulmonary disease. Lung markings at the lung bases increased compared to old exam and could be some mild interstitial pneumonia.
[2022-03-26 14:45] LABS: Basophils # (A) 0.1 k/uL (0-0.2); Basophils % (A) 1 %; Eosinophils # (A) 0.8 k/uL (0-0.7); Eosinophils % (A) 9 %; HCT 46.3 % (39.0-53.0); HGB 15.9 gm/dL (13.0-17.5); Lymphocytes # (A) 1.4 k/uL (1.0-4.8); Lymphocytes % (A) 17 %; MCH 31.9 pg (25.0-35.0); MCHC 34.4 g/dL (31.0-37.0); MCV 92.7 fL (80.0-100.0); Mean Platelet Volume 8.6; Monocytes # (A) 0.4 k/uL (0-1.0); Monocytes % (A) 5 %; Neutrophils # (A) 5.6 k/uL (1.3-7.7); Neutrophils % (A) 66 %; Platelet Count 118 k/uL (150-450); RDW 14.1 % (11.5-15.5); WBC 8.5 k/uL (3.8-10.6)
[2022-03-26 14:59] LABS: Partial Thromboplastin Time 26.8 sec (22.0-30.0); Prothrombin Time 10.6 sec (9.0-12.0)
[2022-03-26 15:03] LABS: Albumin 4.4 g/dL (3.5-5.0); Calcium 9.3 mg/dL (8.4-10.2); Potassium 4.4 mmol/L (3.5-5.1); Total Bilirubin 0.7 mg/dL (0.2-1.3); Total Protein 7.5 g/dL (6.3-8.2)
[2022-03-26] MEDS ORDERED: IPRATROPIUM-ALBUTEROL 3 ML NEB INHALATION PRN (16:37)
--- NOTE | 2022-03-26 16:40 | ED ---
Medical Decision Making - Lab Data Result diagrams: 03/26/22 14:23 03/26/22 14:23 Lab Results 03/26/22 03/26/22 03/26/22 Range/Units 14:23 14:23 14:23 WBC 8.5 (3.8-10.6) k/uL RBC 5.00 (4.30-5.90) m/uL Hgb 15.9 (13.0-17.5) gm/dL Hct 46.3 (39.0-53.0) % MCV 92.7 (80.0-100.0) fL MCH 31.9 (25.0-35.0) pg MCHC 34.4 (31.0-37.0) g/dL RDW 14.1 (11.5-15.5) % Plt Count 118 L (150-450) k/uL MPV 8.6 Neutrophils % 66 % Lymphocytes % 17 % Monocytes % 5 % Eosinophils % 9 % Basophils % 1 % Neutrophils # 5.6 (1.3-7.7) k/uL Lymphocytes # 1.4 (1.0-4.8) k/uL Monocytes # 0.4 (0-1.0) k/uL Eosinophils # 0.8 H (0-0.7) k/uL Basophils # 0.1 (0-0.2) k/uL PT 10.6 (9.0-12.0) sec INR 1.0 (<1.2) APTT 26.8 (22.0-30.0) sec Sodium 138 (137-145) mmol/L Potassium 4.4 (3.5-5.1) mmol/L Chloride 96 L (98-107) mmol/L Carbon Dioxide 37 H (22-30) mmol/L Anion Gap 5 mmol/L BUN 18 (9-20) mg/dL Creatinine 1.02 (0.66-1.25) mg/dL Est GFR (CKD-EPI)AfAm 89 (>60 ml/min/1.73 sqM) Est GFR (CKD-EPI)NonAf 77 (>60 ml/min/1.73 sqM) Glucose 116 H (74-99) mg/dL Plasma Lactic Acid Bolivar (0.7-2.0) mmol/L Calcium 9.3 (8.4-10.2) mg/dL Magnesium 2.0 (1.6-2.3) mg/dL Total Bilirubin 0.7 (0.2-1.3) mg/dL AST 41 (17-59) U/L ALT 49 (4-49) U/L Alkaline Phosphatase 90 (38-126) U/L Troponin I (0.000-0.034) ng/mL NT-Pro-B Natriuret Pep pg/mL Total Protein 7.5 (6.3-8.2) g/dL Albumin 4.4 (3.5-5.0) g/dL 03/26/22 03/26/22 03/26/22 Range/Units 14:23 14:23 14:23 WBC (3.8-10.6) k/uL RBC (4.30-5.90) m/uL Hgb (13.0-17.5) gm/dL Hct (39.0-53.0) % MCV (80.0-100.0) fL MCH (25.0-35.0) pg MCHC (31.0-37.0) g/dL RDW (11.5-15.5) % Plt Count (150-450) k/uL MPV Neutrophils % % Lymphocytes % % Monocytes % % Eosinophils % % Basophils % % Neutrophils # (1.3-7.7) k/uL Lymphocytes # (1.0-4.8) k/uL Monocytes # (0-1.0) k/uL Eosinophils # (0-0.7) k/uL Basophils # (0-0.2) k/uL PT (9.0-12.0) sec INR (<1.2) APTT (22.0-30.0) sec Sodium (137-145) mmol/L Potassium (3.5-5.1) mmol/L Chloride (98-107) mmol/L Carbon Dioxide (22-30) mmol/L Anion Gap mmol/L BUN (9-20) mg/dL Creatinine (0.66-1.25) mg/dL Est GFR (CKD-EPI)AfAm (>60 ml/min/1.73 sqM) Est GFR (CKD-EPI)NonAf (>60 ml/min/1.73 sqM) Glucose (74-99) mg/dL Plasma Lactic Acid [place] 0.6 L (0.7-2.0) mmol/L Calcium (8.4-10.2) mg/dL Magnesium (1.6-2.3) mg/dL Total Bilirubin (0.2-1.3) mg/dL AST (17-59) U/L ALT (4-49) U/L Alkaline Phosphatase (38-126) U/L Troponin I <0.012 (0.000-0.034) ng/mL NT-Pro-B Natriuret Pep <11 pg/mL Total Protein (6.3-8.2) g/dL Albumin (3.5-5.0) g/dL Critical Care Time Critical Care Time: Yes Total Critical Care Time: 39 Critical Care Time: Critical care time includesinitial history physical discussed with paramedics labs x-rays multiple reevaluation the patient responsive therapy review of old charting was available discussed with the admitting physician admission orders and documentation of the above Disposition Clinical Impression: Acute exacerbation of chronic obstructive pulmonary disease, Acute respiratory distress syndrome in adult Disposition: ADMITTED IP TO THIS HOSP Condition: Stable Referrals: Bill De León MD [Primary Care Provider] - 1-2 days
[2022-03-26] MEDS ORDERED: NALOXONE 0.4 MG/ML 1 ML VIAL IV PRN (17:40)
--- NOTE | 2022-03-26 17:52 | P.HPIM ---
History of Present Illness H&P Date: 03/26/22 Chief Complaint: sob 66-year-old male with history of COPD on 2.5 L 01/05 presents emergency Department with chief complaint of shortness breath. Patient states she's been having increasing shortness breath since he woke up today. He started having shortness of breath about a week ago. Denied sick contacts. No recent change in his chronic cough or phlegm production. He has been feeling warm but no chills. No chest pain. Patient is a former smoker has history of COPD. No chest pain. Patient was given DuoNeb treatments by EMS which greatly improved patient's symptoms. According to EMS he was looking cyanotic and was tripoding when seen. He is currently a lot better. Review of Systems Complete review of system performed, pertinent positives per HPI, otherwise negative Past Medical History Past Medical History: Heart Failure, COPD, GERD/Reflux, Hypertension, Osteoarthritis (OA), Pneumonia, Prostate Disorder, Respiratory Disorder, Sleep Apnea/CPAP/BIPAP Additional Past Medical History / Comment(s): Chronic hypoxic respiratory failure, home oxygen at 2L/NC ATC, pt states he was placed on xarelto d/t his lung condition, MANDY with Cpap, neuropathy bilateral legs knees down thru toes, occasional bilateral lower leg/pedal edema, BPH, benign colon polyps years ago. History of Any Multi-Drug Resistant Organisms: None Reported Past Surgical History: Joint Replacement, Orthopedic Surgery, Tonsillectomy Additional Past Surgical History / Comment(s): Bilateral total hip arthroplasties, L carpal tunnel release, R patella tendon release twice, colonoscopy/polypectomy Past Anesthesia/Blood Transfusion Reactions: No Reported Reaction Past Psychological History: Depression Smoking Status: Former smoker - Past Family History Mother Family Medical History: No Reported History Additional Family Medical History / Comment(s): Mother is healthy and 89yrs old. Father Family Medical History: No Reported History Additional Family Medical History / Comment(s): Father is healthy and 90yrs old. Medications and Allergies Home Medications Medication Instructions Recorded Confirmed Type Multivitamin [Men's Multi-Vitamin] 1 tab PO DAILY 04/13/16 03/26/22 History Albuterol Inhaler [Ventolin Hfa 2 puff INHALATION RT-Q4H PRN 06/05/21 03/26/22 History Inhaler] Budesonide/Formoterol Fumarate 2 puff INHALATION RT-BID 06/05/21 03/26/22 History [Symbicort 160-4.5 Mcg Inhaler] Ergocalciferol [Vitamin D2 (1250 1,250 mcg PO VALENCIA 06/05/21 03/26/22 History Mcg = 66099 Iu)] Furosemide [Lasix] 40 mg PO DAILY 06/05/21 03/26/22 History Ipratropium-Albuterol Nebulize 3 ml INHALATION RT-Q4H PRN 06/05/21 03/26/22 History [Duoneb 0.5 mg-3 mg/3 ml Soln] Losartan Potassium 100 mg PO DAILY 06/05/21 03/26/22 History Potassium Chloride ER [K-Dur 10] 10 meq PO DAILY 06/05/21 03/26/22 History Pregabalin [Lyrica] 200 mg PO TID 06/05/21 03/26/22 History Tamsulosin [Flomax] 0.4 mg PO HS 06/05/21 03/26/22 History Venlafaxine HCl [Effexor XR] 150 mg PO DAILY 06/05/21 03/26/22 History amLODIPine [Norvasc] 5 mg PO DAILY 06/05/21 03/26/22 History Allergies Allergy/AdvReac Type Severity Reaction Status Date / Time aspirin AdvReac High doses Verified 03/26/22 15:01 cause abdominal pain latex AdvReac Tears skin Verified 03/26/22 15:01 Physical Exam Vitals: Vital Signs Temp Pulse Resp BP Pulse Ox 03/26/22 15:21 80 18 129/69 96 03/26/22 14:36 99 18 03/26/22 14:25 100 22 03/26/22 14:17 97.7 F 107 H 22 180/89 100 Intake and Output 03/26/22 03/26/22 03/26/22 06:59 14:59 22:59 Other: Weight 127.006 kg Constitutional: No acute distress, conversant, pleasant Eyes:Anicteric sclerae, moist conjunctiva, no lid-lag, PERRLA, ENMT: Oropharynx clear, no erythema, exudates Neck: Supple, FROM, no masses, or JVD, No carotid bruits, No thyromegaly Lungs: Bilateral wheezing and scattered rhonchi Clear to percussion, Normal respiratory effort, no accessory muscle use Cardiovascular: Heart regular in rate and rhythm, No murmurs, gallops, or rubs, No peripheral edema Abdominal: Soft, Nontender, no guarding, rebound or rigidity, Normoactive bowel sounds, No hepatomegaly, No splenomegaly, No palpable mass Skin: Normal temperature, tone, texture, turgor, no induration, No subcutaneous nodules, No rash, lesions, No ulcers Extremities: No digital cyanosis, No clubbing, Pedal pulses intact and symmetrical, Radial pulses intact and symmetrical, No calf tenderness Psychiatric: Alert and oriented to person, place and time, appropriate affect, intact judgement Neuro: Muscles Strength 5/5 in all 4 extremities, Sensation to light touch grossly present throughout, Cranial nerves II-XII grossly intact, no focal sensory deficits Results CBC & Chem 7: 03/26/22 14:23 03/26/22 14:23 Labs: Abnormal Lab Results - Last 24 Hours (Table) 03/26/22 03/26/22 03/26/22 Range/Units 14:23 14:23 14:23 Plt Count 118 L (150-450) k/uL Eosinophils # 0.8 H (0-0.7) k/uL Chloride 96 L (98-107) mmol/L Carbon Dioxide 37 H (22-30) mmol/L Glucose 116 H (74-99) mg/dL Plasma Lactic Acid Bolivar 0.6 L (0.7-2.0) mmol/L Assessment and Plan Plan: Acute hypoxemic respiratory failure Acute COPD exacerbation Admit for IV steroids, DuoNeb's Start Levaquin O2 to keep sats above 92%. Pulmonary consult Chronic GERD/Reflux, Hypertension, Osteoarthritis (OA), Sleep Apnea/CPAP/BIPAP BPH, All stable resume meds DVT prophylaxis Lovenox Admit to inpatient expected length of stay more than 2 midnights.
[2022-03-26] MEDS: methylPREDNISolone SOD SUCCI 125 MG/2 ML VIAL IV SCH (19:30)
[2022-03-26] MEDS: IPRATROPIUM-ALBUTEROL 3 ML NEB INHALATION SCH (20:19)
[2022-03-26] MEDS: SYMBICORT 160-4.5 MCG INHALER INHALATION SCH (20:19)
[2022-03-26] MEDS: TAMSULOSIN 0.4 MG CAP.ER.24H PO SCH (20:24)
[2022-03-26] MEDS: PREGABALIN 100 MG CAP PO SCH (20:24)
[2022-03-27] MEDS: methylPREDNISolone SOD SUCCI 125 MG/2 ML VIAL IV SCH ×4 (01:02→17:22)
[2022-03-27] MEDS: IPRATROPIUM-ALBUTEROL 3 ML NEB INHALATION SCH ×4 (08:08→20:12)
[2022-03-27] MEDS: SYMBICORT 160-4.5 MCG INHALER INHALATION SCH ×2 (08:08→20:11)
[2022-03-27] MEDS: LEVOFLOXACIN 500 MG TAB PO SCH (08:42)
[2022-03-27] MEDS: POTASSIUM CHLORIDE ER 10 MEQ TAB.ER.PRT PO SCH (08:42)
[2022-03-27] MEDS: LOSARTAN 50 MG TAB PO SCH (08:42)
[2022-03-27] MEDS: FUROSEMIDE 40 MG TAB PO SCH (08:42)
[2022-03-27] MEDS: PREGABALIN 100 MG CAP PO SCH ×3 (08:42→21:05)
[2022-03-27] MEDS: VENLAFAXINE HCL ER 150 MG CAP PO SCH (08:42)
[2022-03-27] MEDS: amLODIPine 5 MG TAB PO SCH (08:42)
[2022-03-27] MEDS: MULTIVITAMINS, THERA 1 EACH TAB PO SCH (08:42)
[2022-03-27] MEDS: ENOXAPARIN 40 MG/0.4 ML SYRINGE SQ SCH (08:43)
[2022-03-27 11:52] LABS: Basophils # (A) 0.01 X 10*3/uL (0.00-0.10); Basophils % (A) 0.1 %; Eosinophils # (A) 0 X 10*3/uL (0.04-0.35); Eosinophils % (A) 0 %; HCT 43.7 % (39.6-50.0); HGB 14.4 g/dL (13.0-17.0); Immature Grans, Automated 0.6 %; Lymphocytes # (A) 0.69 X 10*3/uL (0.90-5.00); Lymphocytes % (A) 7.2 %; Monocytes % (A) 1.1 %; NRBC Per 100 WBC 0 /100 WBCS (0.0-0.0); Neutrophils # (A) 8.66 X 10*3/uL (1.80-7.70); Platelet Count 136 X 10*3/uL (140-440); RDW 13.5 % (11.5-14.5); WBC 9.52 X 10*3/uL (4.50-10.00)
[2022-03-27 12:05] LABS: African American GFR (CKD) 103.1 (60.0-200.0); Albumin 4.1 g/dL (3.8-4.9); Albumin/Globulin Ratio 1.82 (1.60-3.17); Anion Gap 9.7 mmol/L (10.00-18.00); BUN/Creat Ratio 19.93 Ratio (12.00-20.00); Calcium 9.3 mg/dL (8.7-10.3); Carbon Dioxide 31.3 mmol/L (20.0-27.5); Globulin 2.3 g/dL (1.6-3.3); Magnesium 2.3 mg/dL (1.5-2.4); Potassium 4.2 mmol/L (3.5-5.5); Total Bilirubin 0.5 mg/dL (0.30-1.20); Total Protein 6.4 g/dL (6.2-8.2)
--- NOTE | 2022-03-27 12:20 | P.PN ---
Subjective Progress Note Date: 03/27/22 Principal diagnosis: sob Patient is feeling better today. Breathing improved. However he did not get a good sleep last night. No fevers. Objective - Vital Signs Vital signs: Vital Signs Temp 97.6 F 03/27/22 08:00 Pulse 84 03/27/22 11:54 Resp 18 03/27/22 11:54 BP 145/74 03/27/22 08:00 Pulse Ox 92 L 03/27/22 08:09 FiO2 Intake & Output 03/26/22 03/27/22 03/27/22 18:59 06:59 18:59 Weight 127.006 kg 127.006 kg Other: Voiding Method Urinal # Voids 2 1 - Exam Constitutional: No acute distress, conversant, pleasant Eyes:Anicteric sclerae, moist conjunctiva, no lid-lag, PERRLA, ENMT: Oropharynx clear, no erythema, exudates Neck: Supple, FROM, no masses, or JVD, No carotid bruits, No thyromegaly Lungs: Clear to auscultation, Clear to percussion, Normal respiratory effort, no accessory muscle use Cardiovascular: Heart regular in rate and rhythm, No murmurs, gallops, or rubs, No peripheral edema Abdominal: Soft, Nontender, no guarding, rebound or rigidity, Normoactive bowel sounds, No hepatomegaly, No splenomegaly, No palpable mass Skin: Normal temperature, tone, texture, turgor, no induration, No subcutaneous nodules, No rash, lesions, No ulcers Extremities: No digital cyanosis, No clubbing, Pedal pulses intact and symmetrical, Radial pulses intact and symmetrical, No calf tenderness Psychiatric: Alert and oriented to person, place and time, appropriate affect, intact judgement Neuro: Muscles Strength 5/5 in all 4 extremities, Sensation to light touch grossly present throughout, Cranial nerves II-XII grossly intact, no focal sensory deficits - Labs CBC & Chem 7: 03/27/22 07:26 03/27/22 07:26 Labs: Abnormal Lab Results - Last 24 Hours (Table) 03/26/22 03/26/22 03/26/22 Range/Units 14:23 14:23 14:23 Plt Count 118 L (150-450) k/uL Immature Gran # (0.00-0.04) X 10*3/uL Neutrophils # (1.80-7.70) X 10*3/uL Lymphocytes # (0.90-5.00) X 10*3/uL Monocytes # (0.20-1.00) X 10*3/uL Eosinophils # 0.8 H (0-0.7) k/uL Chloride 96 L (98-107) mmol/L Carbon Dioxide 37 H (22-30) mmol/L Anion Gap (10.00-18.00) mmol/L Glucose 116 H (74-99) mg/dL Plasma Lactic Acid Bolivar 0.6 L (0.7-2.0) mmol/L ALT (10-49) U/L 03/27/22 03/27/22 Range/Units 07:26 07:26 Plt Count 136 L (150-450) k/uL Immature Gran # 0.06 H (0.00-0.04) X 10*3/uL Neutrophils # 8.66 H (1.80-7.70) X 10*3/uL Lymphocytes # 0.69 L (0.90-5.00) X 10*3/uL Monocytes # 0.10 L (0.20-1.00) X 10*3/uL Eosinophils # 0 L (0-0.7) k/uL Chloride (98-107) mmol/L Carbon Dioxide 31.3 H (22-30) mmol/L Anion Gap 9.70 L (10.00-18.00) mmol/L Glucose 143 H (74-99) mg/dL Plasma Lactic Acid Bolivar (0.7-2.0) mmol/L ALT 51 H (10-49) U/L Assessment and Plan Plan: Acute hypoxemic respiratory failure Acute COPD exacerbation Continue IV steroids, DuoNeb's and levaquin O2 to keep sats above 92%. Pulmonary consulted Chronic GERD/Reflux, Hypertension, Osteoarthritis (OA), Sleep Apnea/CPAP/BIPAP BPH, All stable resume meds DVT prophylaxis Lovenox
[2022-03-27] MEDS ORDERED: ERGOCALCIFEROL 1,250 MCG (50,000 IU) CAPSULE PO SCH (16:38)
[2022-03-27] MEDS: TAMSULOSIN 0.4 MG CAP.ER.24H PO SCH (21:05)
[2022-03-28] MEDS: methylPREDNISolone SOD SUCCI 125 MG/2 ML VIAL IV SCH ×3 (00:48→11:56)
[2022-03-28 08:15] VITALS: BP 126/70; TEMP 97.6
[2022-03-28] MEDS: SYMBICORT 160-4.5 MCG INHALER INHALATION SCH (08:15)
[2022-03-28] MEDS: IPRATROPIUM-ALBUTEROL 3 ML NEB INHALATION SCH ×2 (08:15→11:25)
[2022-03-28 08:18] VITALS: RESP 18
[2022-03-28] MEDS: LOSARTAN 50 MG TAB PO SCH (08:57)
[2022-03-28] MEDS: ENOXAPARIN 40 MG/0.4 ML SYRINGE SQ SCH (08:57)
[2022-03-28] MEDS: LEVOFLOXACIN 500 MG TAB PO SCH (08:57)
[2022-03-28] MEDS: FUROSEMIDE 40 MG TAB PO SCH (08:57)
[2022-03-28] MEDS: VENLAFAXINE HCL ER 150 MG CAP PO SCH (08:57)
[2022-03-28] MEDS: MULTIVITAMINS, THERA 1 EACH TAB PO SCH (08:58)
[2022-03-28] MEDS: PREGABALIN 100 MG CAP PO SCH (08:58)
[2022-03-28] MEDS: amLODIPine 5 MG TAB PO SCH (08:58)
[2022-03-28] MEDS: POTASSIUM CHLORIDE ER 10 MEQ TAB.ER.PRT PO SCH (08:58)
[2022-03-28 11:29] VITALS: PULSE 92
--- NOTE | 2022-03-28 11:29 | P.DS ---
Providers Date of admission: 03/26/22 16:39 Expected date of discharge: 03/28/22 Attending physician: Rae Yancey MD Consults: 03/26/22 17:41 Consult Physician Routine Consulting Provider: Efrain Joshi Consult Reason/Comments: copd Do you want consulting provider notified?: Yes Primary care physician: Bill De León MD Hospital Course: 66-year-old male with history of COPD on 2.5 L 01/05 presents emergency Department with chief complaint of shortness breath. Patient states she's been having increasing shortness of breath. He started having progressively worsening shortness of breath about a week ago. Denied sick contacts. No recent change in his chronic cough or phlegm production. He has been feeling warm but no chills. No chest pain. Patient is a former smoker has history of COPD. No chest pain. Patient was given DuoNeb treatments by EMS which greatly improved patient's symptoms. According to EMS he was looking cyanotic and was tripoding when seen. When seen in the ER he was already better. He was admitted subsequently due to the severity of his symptoms. On examination he had significant wheezing and decreased air entry and bilateral chest barnard. He was started on IV steroids and Levaquin. In addition he was treated with bronchodilators. The next day it was noted that his wheezing improved. He is currently stable for discharge. He will be discharged home in stable condition. He was instructed to follow-up with his oil burner repairer Dr. Joshi in the office. Time for discharge 35 min Patient Condition at Discharge: Stable Plan - Discharge Summary Discharge Rx Participant: No New Discharge Prescriptions: New Levofloxacin [Levaquin] 750 mg PO DAILY 1 Days #3 tab methylPREDNISolone Dose Pack [Medrol Dose Pack] 4 mg PO DIRECTED #21 tab Continue Multivitamin [Men's Multi-Vitamin] 1 tab PO DAILY Ergocalciferol [Vitamin D2 (1250 Mcg = 69316 Iu)] 1,250 mcg PO VALENCIA Venlafaxine HCl [Effexor XR] 150 mg PO DAILY Albuterol Inhaler [Ventolin Hfa Inhaler] 2 puff INHALATION RT-Q4H PRN PRN Reason: Shortness Of Breath Tamsulosin [Flomax] 0.4 mg PO HS Pregabalin [Lyrica] 200 mg PO TID Potassium Chloride ER [K-Dur 10] 10 meq PO DAILY Losartan Potassium 100 mg PO DAILY Budesonide/Formoterol Fumarate [Symbicort 160-4.5 Mcg Inhaler] 2 puff INHALATION RT-BID amLODIPine [Norvasc] 5 mg PO DAILY Ipratropium-Albuterol Nebulize [Duoneb 0.5 mg-3 mg/3 ml Soln] 3 ml INHALATION RT-Q4H PRN PRN Reason: Shortness Of Breath Furosemide [Lasix] 40 mg PO DAILY Discharge Medication List Multivitamin [Men's Multi-Vitamin] 1 tab PO DAILY 04/13/16 [History] Albuterol Inhaler [Ventolin Hfa Inhaler] 2 puff INHALATION RT-Q4H PRN 06/05/21 [History] Budesonide/Formoterol Fumarate [Symbicort 160-4.5 Mcg Inhaler] 2 puff INHALATION RT-BID 06/05/21 [History] Ergocalciferol [Vitamin D2 (1250 Mcg = 25705 Iu)] 1,250 mcg PO VALENCIA 06/05/21 [History] Furosemide [Lasix] 40 mg PO DAILY 06/05/21 [History] Ipratropium-Albuterol Nebulize [Duoneb 0.5 mg-3 mg/3 ml Soln] 3 ml INHALATION RT-Q4H PRN 06/05/21 [History] Losartan Potassium 100 mg PO DAILY 06/05/21 [History] Potassium Chloride ER [K-Dur 10] 10 meq PO DAILY 06/05/21 [History] Pregabalin [Lyrica] 200 mg PO TID 06/05/21 [History] Tamsulosin [Flomax] 0.4 mg PO HS 06/05/21 [History] Venlafaxine HCl [Effexor XR] 150 mg PO DAILY 06/05/21 [History] amLODIPine [Norvasc] 5 mg PO DAILY 06/05/21 [History] Levofloxacin [Levaquin] 750 mg PO DAILY 1 Days #3 tab 03/28/22 [Rx] methylPREDNISolone Dose Pack [Medrol Dose Pack] 4 mg PO DIRECTED #21 tab 03/28/22 [Rx] Follow up Appointment(s)/Referral(s): Bill De León MD [Primary Care Provider] - 1-2 days
== END 2022-03-28 12:45 | disposition home or self-care (01) | DRG 190 ==
LOC: EC 14:15 → 4SSUR 16:39
PROVIDERS: ADMIT Internal Medicine; ATTEND Internal Medicine
DX: J44.1 Chronic obstructive pulmonary disease with (acute) exacerbation (principal); J96.21 Acute and chronic respiratory failure with hypoxia; F32.A Depression, unspecified; I50.9 Heart failure, unspecified; I11.0 Hypertensive heart disease with heart failure; K21.9 Gastro-esophageal reflux disease without esophagitis; Z20.822 Contact with and (suspected) exposure to COVID-19; G62.9 Polyneuropathy, unspecified; G47.33 Obstructive sleep apnea (adult) (pediatric); M19.90 Unspecified osteoarthritis, unspecified site; N40.0 Benign prostatic hyperplasia without lower urinary tract symptoms; Z79.51 Long term (current) use of inhaled steroids; Z79.899 Other long term (current) drug therapy; Z87.19 Personal history of other diseases of the digestive system; Z87.891 Personal history of nicotine dependence; Z96.643 Presence of artificial hip joint, bilateral; Z91.040 Latex allergy status; Z88.6 Allergy status to analgesic agent; Z87.01 Personal history of pneumonia (recurrent)
CPT/HCPCS: 36415; 71045; 80053; 83605; 83735; 83880; 84100; 84484; 85025; 85610; 85730; 87635; 93005; 94640; 94660; 94760; 96365; 96366; 96375; 96376; 99285

== ENCOUNTER 2022-04-25 14:28 | Inpatient (IN) | payer MEDICARE ==
[2022-04-25] MEDS ORDERED: cefTRIAXone IN SWFI 1,000 MG/10 ML SYRINGE IVP STA (16:31)
[2022-04-25] MEDS ORDERED: NALOXONE 0.4 MG/ML 1 ML VIAL IV PRN (17:09)
[2022-04-25] MEDS ORDERED: VANCOMYCIN IV PER PHARMACY 1 EACH MISC MISCELLANE PRN (17:09)
[2022-04-25] MEDS ORDERED: ACETAMINOPHEN TAB 325 MG TAB PO PRN (17:09)
[2022-04-25] MEDS ORDERED: VANCOMYCIN 2,000 MG in SODIUM CHLORIDE 0.9% 500 ML 500 ML IVPB STA (17:10)
--- NOTE | 2022-04-25 17:13 | ED ---
General Adult HPI - General Chief complaint: Extremity Problem,Nontraumatic Stated complaint: Swollen Legs, sent by Time Seen by Provider: 04/25/22 15:11 Source: patient, RN notes reviewed, old records reviewed Mode of arrival: wheelchair Limitations: no limitations - History of Present Illness Initial comments: 66-year-old male presenting from the outpatient setting for evaluation of bilateral lower tremor cellulitis. Patient had an oral antibiotics as well as outpatient ultrasound to rule out DVT. He has completed the antibiotics and continued to worsen. His extremities have increased in swelling and erythema. This is progressive above the knee on the right. He was sent in by Dr. Joshi for admission for IV antibiotics. He denies fever. He does have baseline dyspnea which is unchanged. He wears home oxygen. - Related Data Home Medications Medication Instructions Recorded Confirmed Multivitamin [Men's Multi-Vitamin] 1 tab PO DAILY 04/13/16 03/26/22 Albuterol Inhaler [Ventolin Hfa 2 puff INHALATION RT-Q4H PRN 06/05/21 03/26/22 Inhaler] Budesonide/Formoterol Fumarate 2 puff INHALATION RT-BID 06/05/21 03/26/22 [Symbicort 160-4.5 Mcg Inhaler] Ergocalciferol [Vitamin D2 (1250 1,250 mcg PO VALENCIA 06/05/21 03/26/22 Mcg = 94426 Iu)] Furosemide [Lasix] 40 mg PO DAILY 06/05/21 03/26/22 Ipratropium-Albuterol Nebulize 3 ml INHALATION RT-Q4H PRN 06/05/21 03/26/22 [Duoneb 0.5 mg-3 mg/3 ml Soln] Losartan Potassium 100 mg PO DAILY 06/05/21 03/26/22 Potassium Chloride ER [K-Dur 10] 10 meq PO DAILY 06/05/21 03/26/22 Pregabalin [Lyrica] 200 mg PO TID 06/05/21 03/26/22 Tamsulosin [Flomax] 0.4 mg PO HS 06/05/21 03/26/22 Venlafaxine HCl [Effexor XR] 150 mg PO DAILY 06/05/21 03/26/22 amLODIPine [Norvasc] 5 mg PO DAILY 06/05/21 03/26/22 Previous Rx's Medication Instructions Recorded Levofloxacin [Levaquin] 750 mg PO DAILY 1 Days #3 tab 03/28/22 methylPREDNISolone Dose Pack 4 mg PO DIRECTED #21 tab 03/28/22 [Medrol Dose Pack] Allergies Allergy/AdvReac Type Severity Reaction Status Date / Time aspirin AdvReac High doses Verified 04/25/22 15:11 cause abdominal pain latex AdvReac Tears skin Verified 04/25/22 15:11 Review of Systems ROS Statement: Those systems with pertinent positive or pertinent negative responses have been documented in the HPI. ROS Other: All systems not noted in ROS Statement are negative. Past Medical History Past Medical History: Heart Failure, COPD, GERD/Reflux, Hypertension, Osteoarthritis (OA), Pneumonia, Prostate Disorder, Respiratory Disorder, Sleep Apnea/CPAP/BIPAP Additional Past Medical History / Comment(s): Chronic hypoxic respiratory failure, home oxygen at 3L/NC,MANDY with Cpap, neuropathy bilateral legs knees down thru toes, occasional bilateral lower leg/pedal edema, BPH, benign colon polyps years ago History of Any Multi-Drug Resistant Organisms: None Reported Past Surgical History: Adenoidectomy, Joint Replacement, Orthopedic Surgery, Tonsillectomy Additional Past Surgical History / Comment(s): Bilateral total hip arthroplasties, L carpal tunnel release, R patella tendon release twice, colonoscopy/polypectomy Past Anesthesia/Blood Transfusion Reactions: No Reported Reaction Past Psychological History: Depression Smoking Status: Former smoker Past Alcohol Use History: None Reported Past Drug Use History: Marijuana - Past Family History Mother Family Medical History: No Reported History Additional Family Medical History / Comment(s): Mother is healthy and 89yrs old. Father Family Medical History: No Reported History Additional Family Medical History / Comment(s): Father is healthy and 90yrs old. General Exam Limitations: no limitations General appearance: alert, in no apparent distress Head exam: Present: atraumatic, normocephalic Eye exam: Present: normal appearance, PERRL Respiratory exam: Present: decreased breath sounds. Absent: respiratory distress Cardiovascular Exam: Present: regular rate, normal rhythm GI/Abdominal exam: Present: soft. Absent: distended, tenderness, guarding Extremities exam: Present: pedal edema (Bilateral edema and cellulitis worse on the right) Neurological exam: Present: alert, oriented X3. Absent: motor sensory deficit Psychiatric exam: Present: normal affect, normal mood Skin exam: Present: warm Course Vital Signs 04/25/22 15:07 Temperature 98.7 F Pulse Rate 90 Respiratory 20 Rate Blood Pressure 108/61 O2 Sat by Pulse 96 Oximetry Medical Decision Making - Medical Decision Making Patient will be admitted to [facility], IV will be established, laboratory studies obtained including blood cultures and lactic acid. Results pending He started on ceftriaxone and vancomycin in the emergency department he will be admitted to internal medicine with both pulmonology and infectious disease on consult. Disposition Clinical Impression: Failure of outpatient treatment, Cellulitis Disposition: ADMITTED IP TO THIS HOSP Condition: Stable Is patient prescribed a controlled substance at d/c from ED?: No Referrals: Bill De León MD [Primary Care Provider] - 1-2 days Time of Disposition: 17:13
[2022-04-25 17:50] LABS: Basophils # (A) 0.1 k/uL (0-0.2); Basophils % (A) 1 %; Eosinophils # (A) 0.4 k/uL (0-0.7); Eosinophils % (A) 5 %; HCT 40.5 % (39.0-53.0); Lymphocytes # (A) 1.8 k/uL (1.0-4.8); Lymphocytes % (A) 22 %; MCH 30.2 pg (25.0-35.0); MCHC 31.9 g/dL (31.0-37.0); MCV 94.6 fL (80.0-100.0); Mean Platelet Volume 8.6; Monocytes # (A) 0.6 k/uL (0-1.0); Monocytes % (A) 7 %; Neutrophils # (A) 5.3 k/uL (1.3-7.7); Neutrophils % (A) 64 %; Platelet Count 154 k/uL (150-450); RBC 4.28 m/uL (4.30-5.90); RDW 14.4 % (11.5-15.5); WBC 8.3 k/uL (3.8-10.6)
[2022-04-25] MEDS ORDERED: ALBUTEROL NEBULIZED 2.5 MG/3 ML INHALATION PRN (17:57)
[2022-04-25 17:58] LABS: HGB 12.9 gm/dL (13.0-17.5)
[2022-04-25 18:03] LABS: ALT 24 U/L (4-49); AST 25 U/L (17-59); African American GFR (CKD) >90 (>60 ml/min/1.73 sqM); Albumin 3.8 g/dL (3.5-5.0); Alkaline Phosphatase 79 U/L (38-126); Anion Gap 1 mmol/L; Blood Urea Nitrogen 13 mg/dL (9-20); Calcium 9.2 mg/dL (8.4-10.2); Carbon Dioxide 40 mmol/L (22-30); Chloride 99 mmol/L (98-107); Glucose 80 mg/dL (74-99); Non-African American GFR(CKD) 78 (>60 ml/min/1.73 sqM); Potassium 4.3 mmol/L (3.5-5.1); Sodium 140 mmol/L (137-145); Total Bilirubin 0.5 mg/dL (0.2-1.3); Total Protein 6.4 g/dL (6.3-8.2)
[2022-04-25 18:04] LABS: INR 0.9 (<1.2); Partial Thromboplastin Time 26.7 sec (22.0-30.0); Prothrombin Time 10.2 sec (9.0-12.0)
--- NOTE | 2022-04-25 19:09 | P.HPIM ---
History of Present Illness H&P Date: 04/25/22 Chief Complaint: Cellulitis Patient is a 66 year old M with PMH of COPD on 3L home O2, GERD, Hypertension, BPH presents to the ED for redness of both lower extremities L>R. Patient reports being tried on multiple antibiotics but can not remember which ones. He reports tendor repair in the right knee. He denies any headache, lower extremity edema, nausea and vomiting, fever or chills, cough, chest pain, shortness of breath, palpitations, changes in urination or bowel habits. No changes in appetite and weight. He denies any numbness, weakness, tingling of the extremities. In the ED, vital signs were stable on 3L NC. CBC shows hemoglobin of 12.9. Coag panel is negative. BMP shows bicarb of 40. Patient is admitted for treatment of cellulitis, failed outpatient treatment. Reivew of system is performed and is negative except above. General: [non toxic], [no distress], [appears at stated age] Derm: [warm], [dry] Head: [atraumatic], [normocephalic], [symmetric] Eyes: [EOMI], [no lid lag], [anicteric sclera] Mouth: [no lip lesion], [mucus membranes moist] Cardiovascular: [S1S2 reg], [no murmur] Lungs: [CTA bilateral], [no rhonchi, no rales] , [no accessory muscle use] Ext: [no gross muscle atrophy], [Erythema and swelling of BL LE R>L], [no contractures] Neuro: [no focal neuro deficits] Psych: [Alert], [oriented], [appropriate affect] Assessment and Plan Cellulitis of the bilateral lower extremities R>L Morbid obesity Normocytic anemia Chronic conditions: COPD on 3L NC, Hypertension, GERD, BPH Patient is started on Vancomycin. Duplex to rule out DVT. Blood cultures ordered. Infectious disease consulted for further management of this patient. Patient would benefit from a structured weight loss program. Continue to monitor CBC. Dr. Joshi consulted for continuity of care for stable COPD. Restart Losartan and Amlodipine for hypertension. Restart Flomax for BPH. Past Medical History Past Medical History: Heart Failure, COPD, GERD/Reflux, Hypertension, Osteoarthritis (OA), Pneumonia, Prostate Disorder, Respiratory Disorder, Sleep Apnea/CPAP/BIPAP Additional Past Medical History / Comment(s): Chronic hypoxic respiratory failure, home oxygen at 3L/NC,MANDY with Cpap, neuropathy bilateral legs knees down thru toes, occasional bilateral lower leg/pedal edema, BPH, benign colon polyps years ago History of Any Multi-Drug Resistant Organisms: None Reported Past Surgical History: Adenoidectomy, Joint Replacement, Orthopedic Surgery, Tonsillectomy Additional Past Surgical History / Comment(s): Bilateral total hip arthroplasties, L carpal tunnel release, R patella tendon release twice, colonoscopy/polypectomy Past Anesthesia/Blood Transfusion Reactions: No Reported Reaction Past Psychological History: Depression Smoking Status: Former smoker Past Alcohol Use History: None Reported Past Drug Use History: Marijuana - Past Family History Mother Family Medical History: No Reported History Additional Family Medical History / Comment(s): Mother is healthy and 89yrs old. Father Family Medical History: No Reported History Additional Family Medical History / Comment(s): Father is healthy and 90yrs old. Medications and Allergies Home Medications Medication Instructions Recorded Confirmed Type Multivitamin [Men's Multi-Vitamin] 1 tab PO DAILY 04/13/16 04/25/22 History Albuterol Inhaler [Ventolin Hfa 2 puff INHALATION RT-Q4H PRN 06/05/21 04/25/22 History Inhaler] Budesonide/Formoterol Fumarate 2 puff INHALATION RT-BID@0800,2000 06/05/21 04/25/22 History [Symbicort 160-4.5 Mcg Inhaler] Ergocalciferol [Vitamin D2 (1250 1,250 mcg PO VALENCIA 06/05/21 04/25/22 History Mcg = 13753 Iu)] Furosemide [Lasix] 40 mg PO DAILY 06/05/21 04/25/22 History Ipratropium-Albuterol Nebulize 3 ml INHALATION RT-Q4H PRN 06/05/21 04/25/22 History [Duoneb 0.5 mg-3 mg/3 ml Soln] Losartan Potassium 100 mg PO DAILY 06/05/21 04/25/22 History Potassium Chloride ER [K-Dur 10] 10 meq PO DAILY 06/05/21 04/25/22 History Pregabalin [Lyrica] 200 mg PO TID 06/05/21 04/25/22 History Tamsulosin [Flomax] 0.4 mg PO HS 06/05/21 04/25/22 History Venlafaxine HCl [Effexor XR] 150 mg PO DAILY 06/05/21 04/25/22 History amLODIPine [Norvasc] 5 mg PO DAILY 06/05/21 04/25/22 History Allergies Allergy/AdvReac Type Severity Reaction Status Date / Time aspirin AdvReac High doses Verified 04/25/22 17:46 cause abdominal pain latex AdvReac Tears skin Verified 04/25/22 17:46 Physical Exam Vitals: Vital Signs Temp Pulse Resp BP Pulse Ox 04/25/22 18:45 65 18 112/78 98 04/25/22 15:07 98.7 F 90 20 108/61 96 Intake and Output 04/25/22 04/25/22 04/25/22 06:59 14:59 22:59 Other: Weight 136.078 kg Results CBC & Chem 7: 04/25/22 17:27 04/25/22 17:27 Labs: Abnormal Lab Results - Last 24 Hours (Table) 04/25/22 04/25/22 Range/Units 17:27 17:27 RBC 4.28 L (4.30-5.90) m/uL Hgb 12.9 L D (13.0-17.5) gm/dL Carbon Dioxide 40 H (22-30) mmol/L
[2022-04-25] MEDS: SYMBICORT 160-4.5 MCG INHALER INHALATION SCH ×2 (21:03→22:30)
--- NOTE | 2022-04-25 21:04 | US ---
EXAMINATION TYPE: US venous doppler duplex LE DATE OF EXAM: 04/25/2022 7:02 PM COMPARISON: US 2019 CLINICAL HISTORY: swelling r/o DVT. Bilateral leg swelling, patient taking aspirin SIDE PERFORMED: Bilateral TECHNIQUE: The lower extremity deep venous system is examined utilizing real time linear array sonog abdiaziz with graded compression, doppler sonography and color-flow sonography. VESSELS IMAGED: Common Femoral Vein Deep Femoral Vein Greater Saphenous Vein * Femoral Vein Popliteal Vein Small Saphenous Vein * Proximal Calf Veins (* superficial vessels) Right Leg: Appears negative for DVT Left Leg: Appears negative for DVT IMPRESSION: No evidence of deep vein thrombosis in both legs.
[2022-04-25] MEDS: TAMSULOSIN 0.4 MG CAP.ER.24H PO SCH (22:21)
[2022-04-25] MEDS: PREGABALIN 100 MG CAP PO SCH (22:21)
[2022-04-26] MEDS ORDERED: VANCOMYCIN 2,000 MG in SODIUM CHLORIDE 0.9% 500 ML 500 ML IVPB SCH (06:00)
[2022-04-26] MEDS: amLODIPine 5 MG TAB PO SCH (07:16)
[2022-04-26] MEDS: LOSARTAN 50 MG TAB PO SCH (07:16)
[2022-04-26] MEDS: PREGABALIN 100 MG CAP PO SCH ×3 (07:16→21:14)
[2022-04-26] MEDS: FUROSEMIDE 40 MG TAB PO SCH (07:16)
[2022-04-26] MEDS: SYMBICORT 160-4.5 MCG INHALER INHALATION SCH ×2 (08:46→20:22)
[2022-04-26] MEDS: IPRATROPIUM-ALBUTEROL 3 ML NEB INHALATION PRN ×3 (08:46→16:33)
[2022-04-26] MEDS ORDERED: VENLAFAXINE HCL ER 150 MG CAP PO SCH (09:00)
--- NOTE | 2022-04-26 11:20 | P.PN ---
Subjective Progress Note Date: 04/26/22 Hospital course: Patient is a very pleasant 66-year-old male with a past medical history of of COPD home oxygen dependent on 3L O2, GERD, Hypertension, and BPH. He presented to the emergency department on 04/25/22 for chief complaint of redness of bilateral lower extremities. Patient reports he has been under care of his PCP and has been placed on multiple antibiotics that have been unsuccessful in improving/treating this redness and swelling. Patient reports despite this treatment the redness has worsened and progressed upwards above his right knee accompanied by open wound to right lateral lower leg, patient was sent by his PCP Dr. Joshi for admission for IV antibiotics. He underwent full evaluation in the emergency department. CBC, coags, and CMP were unremarkable with the exception of hemoglobin of 12.9 and bicarb of 40. Patient was started on IV antibiotics vancomycin and admitted under our services with consultation to Dr. Joshi and Dr. Soto. Physical examination: Patient seen and fully evaluated at bedside this morning. He was sitting on edge of bed with feet in dependent position on 4. Patient has moderate 2-3+ pitting edema bilaterally slightly worse on right with venous stasis dermatitis on bilateral legs. Patient has an open wound to right lateral lower leg and is currently on IV antibiotic vancomycin. Pro-calcitonin level to be obtained and infectious disease was consulted. Edema and discoloration appears to be resulting from venous stasis dermatitis and had long discussion with patient regarding importance of elevation of lower extremities and compression stockings to reduce the swelling. We will continue IV vancomycin pending pro-calcitonin and blood culture results as no other signs of infection at this time. Patient remains afebrile and WBC count of 8.3. General: non toxic, no distress, appears at stated age Derm: warm, dry Head: atraumatic, normocephalic, symmetric Eyes: EOMI, no lid lag, anicteric sclera Mouth: no lip lesion, mucus membranes moist Cardiovascular: S1S2 reg, no murmur, positive posterior tibial pulse bilateral, Lungs: Diminished bilateral, no rhonchi, no rales , no accessory muscle use Abdominal: soft, nontender to palpation, no guarding, no appreciable organomegaly Ext: no gross muscle atrophy, no contractures. Bilateral lower extremities with venous stasis dermatitis with open wound to right lateral lower leg. 2-3+ pitting edema bilaterally. Neuro: CN II-XI grossly intact, no focal neuro deficits Psych: Alert, oriented, appropriate affect Assessment and Plan Bilateral lower extremity venous stasis dermatitis with open wound concerning for surrounding area of Cellulitis secondary to increased redness and warmth. -Patient was started on IV antibiotics vancomycin and consult was placed to infectious disease upon arrival to facility. -Bilateral lower extremity KELLE hose -Instructed patient and RN of needs for patient to elevate lower extremities to monitor for improvement in swelling. -Pro-calcitonin -Blood cultures were obtained upon arrival Obesity with BMI 41.8 kg/m -Encourage outpatient weight management program with heart healthy and carb consistent diet. Normocytic anemia, stable Hypertension -Monitor vital signs and Continue daily medication regimen with Norvasc and losartan. GERD -GI prophylaxis with Protonix. BPH -Continue daily medication regimen with Flomax. Advanced COPD home oxygen dependent on 3L [place] -Patient's PCP, Dr. Joshi was consulted for continuity of care for stable COPD. CODE STATUS: Full code DVT prophylaxis: Heparin Discussed with: Patient and RN Anticipated discharge date: Likely tomorrow Anticipated discharge place: Home A total of 35 minutes was spent on the care of this complex patient more than 50% of the time was spent in counseling and care coordination. Forrest Oconnor NP rendered care for this patient independently, reviewed the findings and plan as documented in the note above. I did not physically speak w ith or examine the patient on this date. Objective - Vital Signs Vital signs: Vital Signs Temp 97.3 F L 04/26/22 01:00 Pulse 54 L 04/26/22 01:00 Resp 16 04/26/22 01:00 BP 103/51 04/26/22 01:00 Pulse Ox 99 04/26/22 01:00 FiO2 32 04/26/22 04:40 Intake & Output 04/25/22 04/26/22 04/26/22 18:59 06:59 18:59 Weight 136.078 kg Other: Voiding Method Urinal # Voids 1 - Labs CBC & Chem 7: 04/25/22 17:27 04/25/22 17:27 Labs: Abnormal Lab Results - Last 24 Hours (Table) 04/25/22 04/25/22 Range/Units 17:27 17:27 RBC 4.28 L (4.30-5.90) m/uL Hgb 12.9 L D (13.0-17.5) gm/dL Carbon Dioxide 40 H (22-30) mmol/L
[2022-04-26] MEDS: HEPARIN SODIUM,PORCINE/PF 5,000 UNIT/0.5 ML SYRINGE SQ SCH (15:33)
--- NOTE | 2022-04-26 18:38 | P.CNPUL ---
History of Present Illness Consult date: 04/26/22 Reason for consult: dyspnea, cough, COPD, hypoxemia, other Chief complaint: Non-resolving erythematous edema of the lower extremity History of present illness: Patient is a pleasant 66-year-old male with extensive history of smoking and nicotine use has been on home oxygen patient was seen several weeks ago with increased lower extremity edema as well as redness in the legs extending to the high level patient was treated with outpatient therapy with Keflex without any relief the swelling continued to worsen along with right hematoma and edema, and duplex ultrasound of the lower extremity was negative for DVT due to failure of outpatient therapy patient admitted from the emergency department for IV antibiotics, patient initially received IV vancomycin now has been switched to IV cefazolin. Patient is being continued on DuoNeb and bronchodilator as taking at home, he is on DVT prophylaxis with subcu heparin he is on oxygen as well steroids on hold as COPD appears to be stable not in exacerbation Review of Systems All systems: negative Past Medical History Past Medical History: Heart Failure, COPD, GERD/Reflux, Hypertension, Osteoarthritis (OA), Pneumonia, Prostate Disorder, Respiratory Disorder, Sleep Apnea/CPAP/BIPAP Additional Past Medical History / Comment(s): Chronic hypoxic respiratory fail ure, home oxygen at 3L/[place]AND[place] with Cpap, neuropathy bilateral legs knees down thru toes, occasional bilateral lower leg/pedal edema, BPH, benign colon polyps years ago History of Any Multi-Drug Resistant Organisms: None Reported Past Surgical History: Adenoidectomy, Joint Replacement, Orthopedic Surgery, Tonsillectomy Additional Past Surgical History / Comment(s): Bilateral total hip arthroplasties, L carpal tunnel release, R patella tendon release twice, colonoscopy/polypectomy Past Anesthesia/Blood Transfusion Reactions: No Reported Reaction Past Psychological History: Depression Smoking Status: Former smoker Past Alcohol Use History: None Reported Past Drug Use History: Marijuana - Past Family History Mother Family Medical History: No Reported History Additional Family Medical History / Comment(s): Mother is healthy and 89yrs old. Father Family Medical History: No Reported History Additional Family Medical History / Comment(s): Father is healthy and 90yrs old. Medications and Allergies Home Medications Medication Instructions Recorded Confirmed Type Multivitamin [Men's Multi-Vitamin] 1 tab PO DAILY 04/13/16 04/25/22 History Albuterol Inhaler [Ventolin Hfa 2 puff INHALATION RT-Q4H PRN 06/05/21 04/25/22 History Inhaler] Budesonide/Formoterol Fumarate 2 puff INHALATION RT-BID@0800,199906/05/21 04/25/22 History [Symbicort 160-4.5 Mcg Inhaler] Ergocalciferol [Vitamin D2 (1250 1,250 mcg PO VALENCIA 06/05/21 04/25/22 History Mcg = 26939 Iu)] Furosemide [Lasix] 40 mg PO DAILY 06/05/21 04/25/22 History Ipratropium-Albuterol Nebulize 3 ml INHALATION RT-Q4H PRN 06/05/21 04/25/22 History [Duoneb 0.5 mg-3 mg/3 ml Soln] Losartan Potassium 100 mg PO DAILY 06/05/21 04/25/22 History Potassium Chloride ER [K-Dur 10] 10 meq PO DAILY 06/05/21 04/25/22 History Pregabalin [Lyrica] 200 mg PO TID 06/05/21 04/25/22 History Tamsulosin [Flomax] 0.4 mg PO HS 06/05/21 04/25/22 History Venlafaxine HCl [Effexor XR] 150 mg PO DAILY 06/05/21 04/25/22 History amLODIPine [Norvasc] 5 mg PO DAILY 06/05/21 04/25/22 History Allergies Allergy/AdvReac Type Severity Reaction Status Date / Time aspirin AdvReac High doses Verified 04/25/22 17:46 cause abdominal pain latex AdvReac Tears skin Verified 04/25/22 17:46 Physical Exam Vitals: Vital Signs Temp Pulse Pulse Resp BP BP Pulse Ox 04/26/22 16:46 60 04/26/22 16:33 56 L 04/26/22 14:00 98.3 F 104 H 18 124/71 97 04/26/22 12:07 64 04/26/22 11:55 60 04/26/22 08:58 64 04/26/22 08:47 64 04/26/22 08:00 97.4 F L 57 L 18 122/72 98 04/26/22 07:15 18 04/26/22 04:40 04/26/22 02:00 04/26/22 01:00 97.3 F L 54 L 16 103/51 99 04/25/22 22:49 04/25/22 22:48 04/25/22 22:00 97.7 F 60 16 120/57 97 04/25/22 18:45 65 18 112/78 98 FiO2 04/26/22 16:46 04/26/22 16:33 04/26/22 14:00 04/26/22 12:07 04/26/22 11:55 04/26/22 08:58 04/26/22 08:47 04/26/22 08:00 04/26/22 07:15 04/26/22 04:40 32 04/26/22 02:00 32 04/26/22 01:00 04/25/22 22:49 32 04/25/22 22:48 32 04/25/22 22:00 04/25/22 18:45 Intake and Output 04/26/22 04/26/22 04/26/22 06:59 14:59 22:59 Intake Total 2160 Balance 2160 Intake: Oral 2160 Other: Voiding Method Urinal # Voids 1 4 # Bowel Movements 1 - Constitutional General appearance: average body habitus, cooperative, disheveled - EENT Eyes: PERRLA ENT: normal oropharynx Ears: bilateral: normal - Neck Neck: normal ROM Carotids: bilateral: upstroke normal Thyroid: bilateral: normal size - Respiratory Respiratory: bilateral: diminished - Cardiovascular Rhythm: regular Heart sounds: normal: S1, S2 - Gastrointestinal General gastrointestinal: soft - Integumentary Integumentary: normal turgor - Neurologic Neurologic: CNII-XII intact - Musculoskeletal Musculoskeletal: gait normal, generalized weakness, strength equal bilaterally - Psychiatric Psychiatric: A&O x's 3, appropriate affect, intact judgment & insight Results - Laboratory Findings CBC and BMP: 04/25/22 17:27 04/25/22 17:27 PT/INR, D-dimer PT 10.2 sec (9.0-12.0) 04/25/22 17:27 INR 0.9 (<1.2) 04/25/22 17:27 Abnormal lab findings: Abnormal Labs 04/25/22 04/25/22 17:27 17:27 RBC 4.28 L Hgb 12.9 L D Carbon Dioxide 40 H - Diagnostic Findings U/S of Legs: report reviewed, image reviewed (No DVT seen) Assessment and Plan Assessment: Bilateral cellulitis of the lower extremity right greater than the left on IV antibiotics now Chronic hypoxic respiratory failure on supplemental oxygen End-stage COPD oxygen dependent Sleep disorder breathing and sleep apnea on CPAP Hypertension hypertensive cardiovascular disease Chronic diastolic heart failure BPH Morbid obesity Plan: Continue supplemental oxygen Continue bronchodilator Hold on IV steroids Continue broad-spectrum antibiotics for cellulitis of the lower extremity Continue compressive stocking DVT prophylaxis Continue antihypertensive agents and gentle diuresis Time with Patient: Greater than 30
[2022-04-26] MEDS: TAMSULOSIN 0.4 MG CAP.ER.24H PO SCH (21:13)
--- NOTE | 2022-04-26 22:57 | P.CONS ---
History of Present Illness - Reason for Consult Consult date: 04/26/22 - History of Present Illness Patient is a 66-year-old male with a past medical he significant for COPD who to follow-up with Dr. Joshi in the outpatient setting apparently the patient has been treated for lower extremity cellulitis in the outpatient setting by his rn field however the patient noticed to have increasing bilateral lower extremity swelling and redness over the patient has been advised admission to the hospital for IV antibiotic therapy, patient mentioning increasing swelling and redness to the leg for more than a week now patient denies any history of any trauma has been complaining of some diffuse swelling and redness and a dull aching pain intensity about 5 out of 10 no radiation patient did have some superficial solution to the right leg from ruptured blister with the symptom the patient was evaluated on arrival to the ER the patient was afebrile and no fever have recorded subsequently patient did have a normal white count differential has been normal liver exams are normal blood culture obtained which are currently pending patient did have a lower extremity Doppler that has been negative for DVT patient was started on vancomycin has been admitted to the hospital infectious disease was consulted for further management of antibiotic therapy Past Medical History Past Medical History: Heart Failure, COPD, GERD/Reflux, Hypertension, Os teoarthritis (OA), Pneumonia, Prostate Disorder, Respiratory Disorder, Sleep Apnea/CPAP/BIPAP Additional Past Medical History / Comment(s): Chronic hypoxic respiratory failure, home oxygen at 3L/[place] with Cpap, neuropathy bilateral legs knees down thru toes, occasional bilateral lower leg/pedal edema, BPH, benign colon polyps years ago History of Any Multi-Drug Resistant Organisms: None Reported Past Surgical History: Adenoidectomy, Joint Replacement, Orthopedic Surgery, Tonsillectomy Additional Past Surgical History / Comment(s): Bilateral total hip arthroplasties, L carpal tunnel release, R patella tendon release twice, colonoscopy/polypectomy Past Anesthesia/Blood Transfusion Reactions: No Reported Reaction Past Psychological History: Depression Smoking Status: Former smoker Past Alcohol Use History: None Reported Past Drug Use History: Marijuana - Past Family History Mother Family Medical History: No Reported History Additional Family Medical History / Comment(s): Mother is healthy and 89yrs old. Father Family Medical History: No Reported History Additional Family Medical History / Comment(s): Father is healthy and 90yrs old. Medications and Allergies Home Medications Medication Instructions Recorded Confirmed Type RX: Multivitamin [Men's 1 tab PO DAILY 04/13/16 04/25/22 History Multi-Vitamin] RX: Albuterol Inhaler [Ventolin 2 puff INHALATION RT-Q4H PRN 06/05/21 04/25/22 History Hfa Inhaler] RX: Budesonide/Formoterol Fumarate 2 puff INHALATION RT-BID@0800,199906/05/21 04/25/22 History [Symbicort 160-4.5 Mcg Inhaler] RX: Ergocalciferol [Vitamin D2 1,250 mcg PO VALENCIA 06/05/21 04/25/22 History (1250 Mcg = 90746 Iu)] RX: Furosemide [Lasix] 40 mg PO DAILY 06/05/21 04/25/22 History RX: Ipratropium-Albuterol Nebulize 3 ml INHALATION RT-Q4H PRN 06/05/21 04/25/22 History [Duoneb 0.5 mg-3 mg/3 ml Soln] RX: Losartan Potassium 100 mg PO DAILY 06/05/21 04/25/22 History RX: Potassium Chloride ER [K-Dur 10 meq PO DAILY 06/05/21 04/25/22 History 10] RX: Pregabalin [Lyrica] 200 mg PO TID 06/05/21 04/25/22 History RX: Tamsulosin [Flomax] 0.4 mg PO HS 06/05/21 04/25/22 History RX: Venlafaxine HCl [Effexor XR] 150 mg PO DAILY 06/05/21 04/25/22 History RX: amLODIPine [Norvasc] 5 mg PO DAILY 06/05/21 04/25/22 History Allergies Allergy/AdvReac Type Severity Reaction Status Date / Time aspirin AdvReac High doses Verified 04/25/22 17:46 cause abdominal pain latex AdvReac Tears skin Verified 04/25/22 17:46 Physical Exam Vitals: Vital Signs Temp Pulse Pulse Resp BP BP Pulse Ox 04/26/22 08:58 64 04/26/22 08:47 64 04/26/22 08:00 97.4 F L 57 L 18 122/72 98 04/26/22 07:15 18 04/26/22 04:40 04/26/22 02:00 04/26/22 01:00 97.3 F L 54 L 16 103/51 99 04/25/22 22:49 04/25/22 22:48 04/25/22 22:00 97.7 F 60 16 120/57 97 04/25/22 18:45 65 18 112/78 98 04/25/22 15:07 98.7 F 90 20 108/61 96 FiO2 04/26/22 08:58 04/26/22 08:47 04/26/22 08:00 04/26/22 07:15 04/26/22 04:40 32 04/26/22 02:00 32 04/26/22 01:00 04/25/22 22:49 32 04/25/22 22:48 32 04/25/22 22:00 04/25/22 18:45 04/25/22 15:07 Intake and Output 04/25/22 04/26/22 04/26/22 22:59 06:59 14:59 Other: Voiding Method Urinal # Voids 1 Weight 136.078 kg Results CBC & Chem 7: 04/25/22 17:27 04/25/22 17:27 Labs: Abnormal Lab Results - Last 24 Hours (Table) 04/25/22 04/25/22 Range/Units 17:27 17:27 RBC 4.28 L (4.30-5.90) m/uL Hgb 12.9 L D (13.0-17.5) gm/dL Carbon Dioxide 40 H (22-30) mmol/L Assessment and Plan Plan: 1patient with bilateral lower extremity swelling and there is a component of redness especially to the right leg and some superficial ulceration from ruptured blister and likely from gram-positive skin jermain clinically not MRSA infection. 2discontinue vancomycin. 3start the patient cefazolin 2 g every 8 hours with a plan to finish therapy with oral Keflex. 4local wound care with the Medih[facility] to the open sores followed by moist dressing and Igor wrap to keep the swelling down change daily. We will follow on clinical condition and cultures to further adjust medication if needed Thank you for this consultation will follow this patient along with you Time with Patient: Greater than 30
[2022-04-27] MEDS: HEPARIN SODIUM,PORCINE/PF 5,000 UNIT/0.5 ML SYRINGE SQ SCH ×3 (00:45→15:49)
[2022-04-27] MEDS ORDERED: PANTOPRAZOLE 40 MG TABLET PO SCH (07:30)
[2022-04-27] MEDS: SYMBICORT 160-4.5 MCG INHALER INHALATION SCH (07:45)
[2022-04-27] MEDS: IPRATROPIUM-ALBUTEROL 3 ML NEB INHALATION PRN ×2 (07:45→16:03)
[2022-04-27] MEDS: PREGABALIN 100 MG CAP PO SCH ×2 (08:38→15:55)
[2022-04-27] MEDS: LOSARTAN 50 MG TAB PO SCH (08:38)
[2022-04-27] MEDS: amLODIPine 5 MG TAB PO SCH (08:38)
[2022-04-27] MEDS: FUROSEMIDE 40 MG TAB PO SCH (08:39)
--- NOTE | 2022-04-27 11:04 | P.HPIM ---
History of Present Illness H&P Date: 04/27/22 Discharge Diagnosis: Hospital Course: Patient is a very pleasant 66-year-old male with a past medical history of of COPD home oxygen dependent on 3L O2, GERD, Hypertension, and BPH. He presented to the emergency department on 04/25/22 for chief complaint of redness of bilateral lower extremities. Patient reports he has been under care of his PCP and has been placed on multiple antibiotics that have been unsuccessful in improving/treating this redness and swelling. Patient reports despite this treatment the redness has worsened and progressed upwards above his right knee accompanied by open wound to right lateral lower leg, patient was sent by his PCP Dr. Joshi for admission for IV antibiotics. He underwent full evaluation in the emergency department. CBC, coags, and CMP were unremarkable with the e xception of hemoglobin of 12.9 and bicarb of 40. Patient was started on IV antibiotics vancomycin and admitted under our services with consultation to Dr. Joshi and Dr. Soto. Physical examination: Patient seen and fully evaluated at bedside this morning. He was sitting on edge of bed with feet in dependent position on 4. Patient has moderate 2-3+ pitting edema bilaterally slightly worse on right with venous stasis dermatitis on bilateral legs. Patient has an open wound to right lateral lower leg and is currently on IV antibiotic vancomycin. Pro-calcitonin level to be obtained and infectious disease was consulted. Edema and discoloration appears to be resulting from venous stasis dermatitis and had long discussion with patient regarding importance of elevation of lower extremities and compression stockings to reduce the swelling. We will continue IV vancomycin pending pro-calcitonin and blood culture results as no other signs of infection at this time. Patient remains afebrile and WBC count of 8.3. General: non toxic, no distress, appears at stated age Derm: warm, dry Head: atraumatic, normocephalic, symmetric Eyes: EOMI, no lid lag, anicteric sclera Mouth: no lip lesion, mucus membranes moist Cardiovascular: S1S2 reg, no murmur, positive posterior tibial pulse bilateral, Lungs: Diminished bilateral, no rhonchi, no rales , no accessory muscle use Abdominal: soft, nontender to palpation, no guarding, no appreciable organomegaly Ext: no gross muscle atrophy, no contractures. Bilateral lower extremities with venous stasis dermatitis with open wound to right lateral lower leg. 2-3+ pitting edema bilaterally. Neuro: CN II-XI grossly intact, no focal neuro deficits Psych: Alert, oriented, appropriate affect Assessment and Plan Bilateral lower extremity venous stasis dermatitis with open wound concerning for surrounding area of Cellulitis secondary to increased redness and warmth. -Patient was started on IV antibiotics vancomycin and consult was placed to i nfectious disease upon arrival to facility. -Bilateral lower extremity KELLE hose -Instructed patient and RN of needs for patient to elevate lower extremities to monitor for improvement in swelling. -Pro-calcitonin -Blood cultures were obtained upon arrival Obesity with BMI 41.8 kg/m -Encourage outpatient weight management program with heart healthy and carb consistent diet. Normocytic anemia, stable Hypertension -Monitor vital signs and Continue daily medication regimen with Norvasc and losa rtan. GERD -GI prophylaxis with Protonix. BPH -Continue daily medication regimen with Flomax. Advanced COPD home oxygen dependent on 3L [place] -Patient's PCP, Dr. Joshi was consulted for continuity of care for stable COPD. A total of [ ] minutes of time were spent preparing this complex discharge s amena. Pt was discharged on [ ] at [ ] Past Medical History Past Medical History: Heart Failure, COPD, GERD/Reflux, Hypertension, Osteoarthritis (OA), Pneumonia, Prostate Disorder, Respiratory Disorder, Sleep Apnea/CPAP/BIPAP Additional Past Medical History / Comment(s): Chronic hypoxic respiratory failure, home oxygen at 3L/NC,MANDY with Cpap, neuropathy bilateral legs knees down thru toes, occasional bilateral lower leg/pedal edema, BPH, benign colon polyps years ago History of Any Multi-Drug Resistant Organisms: None Reported Past Surgical History: Adenoidectomy, Joint Replacement, Orthopedic Surgery, Tonsillectomy Additional Past Surgical History / Comment(s): Bilateral total hip arthroplasties, L carpal tunnel release, R patella tendon release twice, colonoscopy/polypectomy Past Anesthesia/Blood Transfusion Reactions: No Reported Reaction Past Psychological History: Depression Smoking Status: Former smoker Past Alcohol Use History: None Reported Past Drug Use History: Marijuana - Past Family History Mother Family Medical History: No Reported History Additional Family Medical History / Comment(s): Mother is healthy and 89yrs old. Father Family Medical History: No Reported History Additional Family Medical History / Comment(s): Father is healthy and 90yrs old. Medications and Allergies Home Medications Medication Instructions Recorded Confirmed Type Multivitamin [Men's Multi-Vitamin] 1 tab PO DAILY 04/13/16 04/25/22 History Albuterol Inhaler [Ventolin Hfa 2 puff INHALATION RT-Q4H PRN 06/05/21 04/25/22 History Inhaler] Budesonide/Formoterol Fumarate 2 puff INHALATION RT-BID@0800,2000 06/05/21 0 04/25/22 History [Symbicort 160-4.5 Mcg Inhaler] Ergocalciferol [Vitamin D2 (1250 1,250 mcg PO VALENCIA 06/05/21 04/25/22 History Mcg = 20922 Iu)] Furosemide [Lasix] 40 mg PO DAILY 06/05/21 04/25/22 History Ipratropium-Albuterol Nebulize 3 ml INHALATION RT-Q4H PRN 06/05/21 04/25/22 History [Duoneb 0.5 mg-3 mg/3 ml Soln] Losartan Potassium 100 mg PO DAILY 06/05/21 04/25/22 History Potassium Chloride ER [K-Dur 10] 10 meq PO DAILY 06/05/21 04/25/22 History Pregabalin [Lyrica] 200 mg PO TID 06/05/21 04/25/22 History Tamsulosin [Flomax] 0.4 mg PO HS 06/05/21 04/25/22 History Venlafaxine HCl [Effexor XR] 150 mg PO DAILY 06/05/21 04/25/22 History amLODIPine [Norvasc] 5 mg PO DAILY 06/05/21 04/25/22 History Cephalexin [Keflex] 500 mg PO Q8HR 10 Days #30 cap 04/27/22 Rx Allergies Allergy/AdvReac Type Severity Reaction Status Date / Time aspirin AdvReac High doses Verified 04/25/22 17:46 cause abdominal pain latex AdvReac Tears skin Verified 04/25/22 17:46 Physical Exam Vitals: Vital Signs Temp Pulse Pulse Resp BP Pulse Ox FiO2 04/27/22 10:02 87 20 04/27/22 07:54 62 04/27/22 07:46 62 94 L 04/27/22 07:16 98.5 F 87 19 120/74 97 04/27/22 03:30 95 32 04/27/22 03:29 32 04/27/22 01:24 97.4 F L 61 12 167/63 94 L 04/27/22 00:33 96 32 04/27/22 00:26 32 04/26/22 20:22 100 04/26/22 19:19 97.5 F L 77 16 143/66 94 L 04/26/22 16:46 60 04/26/22 16:33 56 L 04/26/22 14:00 98.3 F 104 H 18 124/71 97 04/26/22 12:07 64 04/26/22 11:55 60 Intake and Output 04/26/22 04/27/22 04/27/22 22:59 06:59 14:59 Intake Total 2160 Balance 2160 Intake: Oral 2160 Other: Voiding Method Toilet # Voids 4 1 # Bowel Movements 1 Results CBC & Chem 7: 04/25/22 17:27 04/27/22 06:10 Labs: Abnormal Lab Results - Last 24 Hours (Table) 04/26/22 Range/Units 11:49 Procalcitonin <0.02 L (0.02-0.09) ng/mL Microbiology - Last 24 Hours (Table) 04/25/22 17:10 Blood Culture - Preliminary Blood No Growth after 24 hours 04/25/22 17:27 Blood Culture - Preliminary Blood No Growth after 24 hours Thrombosis Risk Factor Assmnt - Choose All That Apply Each Factor Represents 1 point: Abnormal pulmonary function (COPD) Each Risk Factor Represents 2 Points: Age 61-74 years Other congenital or acquired thrombophilia - If yes, enter type in comment: No Thrombosis Risk Factor Assessment Total Risk Factor Score: 3 Thrombosis Risk Factor Assessment Level: Moderate Risk
[2022-04-27 13:59] VITALS: BP 112/71; TEMP 98.2
--- NOTE | 2022-04-27 14:49 | P.PN ---
Subjective Progress Note Date: 04/27/22 Principal diagnosis: Bilateral cellulitis of the lower extremity right greater than the left on IV antibiotics now Chronic hypoxic respiratory failure on supplemental oxygen End-stage COPD oxygen dependent Sleep disorder breathing and sleep apnea on CPAP Hypertension hypertensive cardiovascular disease Chronic diastolic heart failure BPH Morbid obesity 04/27/2022, patient seen eval examined during the rounds labs reviewed medications care plan discussed, patient remains on broad-spectrum antibiotics for cellulitis lower extremity along with leg elevation and Igor wrap swelling and erythematous. Still have improved, blood cultures no growth, Patient is a pleasant 66-year-old male with extensive history of smoking and nicotine use has been on home oxygen patient was seen several weeks ago with increased lower extremity edema as well as redness in the legs extending to the high level patient was treated with outpatient therapy with Keflex without any relief the swelling continued to worsen along with right hematoma and edema, and duplex ultrasound of the lower extremity was negative for DVT due to failure of outpatient therapy patient admitted from the emergency department for IV antibiotics, patient initially received IV vancomycin now has been switched to IV cefazolin. Patient is being continued on DuoNeb and bronchodilator as taking at home, he is on DVT prophylaxis with subcu heparin he is on oxygen as well steroids on hold as COPD appears to be stable not in exacerbation Objective - Vital Signs Vital signs: Vital Signs Temp 98.2 F 04/27/22 13:58 Pulse 61 04/27/22 13:58 Resp 18 04/27/22 13:58 BP 112/71 04/27/22 13:58 Pulse Ox 94 L 04/27/22 13:58 FiO2 32 04/27/22 03:30 Intake & Output 04/26/22 04/27/22 04/27/22 18:59 06:59 18:59 Intake Total 2160 Balance 2160 Intake: Oral 2160 Other: Voiding Method Toilet # Voids 4 1 # Bowel Movements 1 - Exam - Constitutional General appearance: average body habitus, cooperative, disheveled - EENT Eyes: PERRLA ENT: normal oropharynx Ears: bilateral: normal - Neck Neck: normal ROM Carotids: bilateral: upstroke normal Thyroid: bilateral: normal size - Respiratory Respiratory: bilateral: diminished - Cardiovascular Rhythm: regular Heart sounds: normal: S1, S2 - Gastrointestinal General gastrointestinal: soft - Integumentary Integumentary: normal turgor - Neurologic Neurologic: CNII-XII intact - Musculoskeletal Musculoskeletal: gait normal, generalized weakness, strength equal bilaterally - Psychiatric Psychiatric: A&O x's 3, appropriate affect, intact judgment & insight - Labs CBC & Chem 7: 04/25/22 17:27 04/27/22 06:10 Labs: Abnormal Lab Results - Last 24 Hours (Table) 04/26/22 Range/Units 11:49 Procalcitonin <0.02 L (0.02-0.09) ng/mL Microbiology - Last 24 Hours (Table) 04/25/22 17:10 Blood Culture - Preliminary Blood No Growth after 24 hours 04/25/22 17:27 Blood Culture - Preliminary Blood No Growth after 24 hours Assessment and Plan Assessment: Bilateral cellulitis of the lower extremity right greater than the left on IV antibiotics now Chronic hypoxic respiratory failure on supplemental oxygen End-stage COPD oxygen dependent Sleep disorder breathing and sleep apnea on CPAP Hypertension hypertensive cardiovascular disease Chronic diastolic heart failure BPH Morbid obesity Plan: Continue supplemental oxygen Continue bronchodilator Hold on IV steroids Continue broad-spectrum antibiotics for cellulitis of the lower extremity Continue compressive stocking DVT prophylaxis Continue antihypertensive agents and gentle diuresis Time with Patient: Greater than 30
--- NOTE | 2022-04-27 15:47 | P.DS ---
Providers Date of admission: 04/25/22 17:09 Expected date of discharge: 04/27/22 Attending physician: Meredith Castellanos MD Consults: 04/25/22 17:09 Consult Physician Routine Consulting Provider: Efrain Joshi Consult Reason/Comments: COPD Do you want consulting provider notified?: Yes Consult Physician Routine Consulting Provider: Collette Soto Consult Reason/Comments: Cellulitis Do you want consulting provider notified?: Yes Primary care physician: Bill De León MD Hospital Course: Discharge Diagnosis: Bilateral lower extremity venous stasis dermatitis with open wound on right lower extremity with surrounding area of Cellulitis, patient being discharged home on Keflex 500 mg every 8 hours 10 days. Patient being discharged home with home care complete with PT/OT as well as RN to assist with wound care. Local wound care with MediHoney to the open sore of right lower lateral leg followed by moist dressing and Igor wrap to bilateral legs to keep swelling down. Recommending changing daily and elevating lower extremities when not in use. Blood cultures showed no growth 24 hours. Obesity with BMI 41.8 kg/m. Encourage outpatient weight management program along with following heart healthy and carb consistent diet. Normocytic anemia, stable Hypertension. Monitor vital signs and Continue daily medication regimen with Norvasc and losartan. GERD, continue with Tums and/or Maalox as needed BPH. Continue daily medication regimen with Flomax. Advanced COPD home oxygen dependent on 3L NC, continue to follow up outpatient with her automotive internet sales consultant Dr. Joshi for long-term monitoring and management. Please continue to wear oxygen at all times unless otherwise instructed by automotive internet sales consultant. Hospital Course: Patient is a very pleasant 66-year-old male with a past medical history of of COPD home oxygen dependent on 3L O2, GERD, Hypertension, and BPH. He presented to the emergency department on 04/25/22 for chief complaint of redness of bilateral lower extremities. Patient reports he has been under care of his PCP and has been placed on multiple antibiotics that have been unsuccessful in improving/treating this redness and swelling. Patient reports despite this treatment the redness has worsened and progressed upwards above his right knee accompanied by open wound to right lateral lower leg, patient was sent by his PCP Dr. Joshi for admission for IV antibiotics. He underwent full evaluation in the emergency department. CBC, coags, and CMP were unremarkable with the exception of hemoglobin of 12.9 and bicarb of 40. Patient was started on IV antibiotics vancomycin and admitted under our services with consultation to Dr. Joshi and Dr. Soto. Patient underwent a 2 night hospitalization. He was evaluated by infectious disease, vancomycin was discontinued and patient was placed on cefazolin. Infectious disease recommending patient to be discharged home on Keflex. Patient also instructed on importance of elevating lower extremities when not using. Over 2 day hospitalization swelling significantly improved simply with use of Igor dressings and elevation. Small area of open wound to right lower extremity to be treated with local wound care with MediHoney to the open sore of right lower lateral leg followed by moist dressing and then Igor wrap to bilateral legs to keep swelling down. Patient being discharged home on Keflex 500 mg twice every 8 hours 10 days. Patient to follow-up outpatient with PCP, pulmonology, and infectious disease/wound care. Patient discharged home with [facility] [place] where he will receive nursing assistance as well as PT/OT. Physical examination: General: non toxic, no distress, appears at stated age Derm: warm, dry Head: atraumatic, normocephalic, symmetric Eyes: EOMI, no lid lag, anicteric sclera Mouth: no lip lesion, mucus membranes moist Cardiovascular: S1S2 reg, no murmur, positive posterior tibial pulse bilateral, Lungs: Diminished bilateral, no rhonchi, no rales , no accessory muscle use Abdominal: soft, nontender to palpation, no guarding, no appreciable organomegaly Ext: no gross muscle atrophy, no contractures. Bilateral lower extremities with venous stasis dermatitis with open wound to right lateral lower leg with small area to right lateral lower leg with open wound and surrounding erythema. 1-2+ pitting edema bilaterally, significantly improved with elevation and Igor wrap. Neuro: CN II-XI grossly intact, no focal neuro deficits Psych: Alert, oriented, appropriate affect A total of 38 minutes of time were spent preparing this complex discharge summary. Pt was discharged on 04/27/22 at 11:03 AM. Forrest Oconnor NP rendered care for this patient independently, reviewed the findings and plan as documented in the note above. I did not physically speak with or examine the patient on this date. Patient Condition at Discharge: Stable Plan - Discharge Summary Discharge Rx Participant: No New Discharge Prescriptions: New Cephalexin [Keflex] 500 mg PO Q8HR 10 Days #30 cap Continue Multivitamin [Men's Multi-Vitamin] 1 tab PO DAILY Ergocalciferol [Vitamin D2 (1250 Mcg = 36751 Iu)] 1,250 mcg PO VALENCIA Venlafaxine HCl [Effexor XR] 150 mg PO DAILY Albuterol Inhaler [Ventolin Hfa Inhaler] 2 puff INHALATION RT-Q4H PRN PRN Reason: Shortness Of Breath Tamsulosin [Flomax] 0.4 mg PO HS Pregabalin [Lyrica] 200 mg PO TID Potassium Chloride ER [K-Dur 10] 10 meq PO DAILY Losartan Potassium 100 mg PO DAILY Budesonide/Formoterol Fumarate [Symbicort 160-4.5 Mcg Inhaler] 2 puff INHALATION RT-BID@799,1999 amLODIPine [Norvasc] 5 mg PO DAILY Ipratropium-Albuterol Nebulize [Duoneb 0.5 mg-3 mg/3 ml Soln] 3 ml INHALATION RT-Q4H PRN PRN Reason: Shortness Of Breath Furosemide [Lasix] 40 mg PO DAILY Discharge Medication List Multivitamin [Men's Multi-Vitamin] 1 tab PO DAILY 04/13/16 [History] Albuterol Inhaler [Ventolin Hfa Inhaler] 2 puff INHALATION RT-Q4H PRN 06/05/21 [History] Budesonide/Formoterol Fumarate [Symbicort 160-4.5 Mcg Inhaler] 2 puff INHALATION RT-BID@799,199906/05/21 [History] Ergocalciferol [Vitamin D2 (1250 Mcg = 19534 Iu)] 1,250 mcg PO VALENCIA 06/05/21 [History] Furosemide [Lasix] 40 mg PO DAILY 06/05/21 [History] Ipratropium-Albuterol Nebulize [Duoneb 0.5 mg-3 mg/3 ml Soln] 3 ml INHALATION RT-Q4H PRN 06/05/21 [History] Losartan Potassium 100 mg PO DAILY 06/05/21 [History] Potassium Chloride ER [K-Dur 10] 10 meq PO DAILY 06/05/21 [History] Pregabalin [Lyrica] 200 mg PO TID 06/05/21 [History] Tamsulosin [Flomax] 0.4 mg PO HS 06/05/21 [History] Venlafaxine HCl [Effexor XR] 150 mg PO DAILY 06/05/21 [History] amLODIPine [Norvasc] 5 mg PO DAILY 06/05/21 [History] Cephalexin [Keflex] 500 mg PO Q8HR 10 Days #30 cap 04/27/22 [Rx] Follow up Appointment(s)/Referral(s): Keily Garcia [NON-STAFF] - As Needed Marleni Villarreal DO [STAFF PHYSICIAN] - 1 Week (office closed at time of discharge. Please call to schedule appointment ) Bill De León MD [Primary Care Provider] - 1-2 days (office busy at time of discharge. Please call to schedule appointment ) Collette Soto MD [STAFF PHYSICIAN] - 05/10/22 3:00 pm Patient Instructions/Handouts: Cellulitis (ED) Activity/Diet/Wound Care/Special Instructions: Activity: As tolerated. Take breaks as needed. Diet: Heart healthy and carb consistent diet. Avoid salts, or foods with hidden salts such as canned or boxed foods and frozen dinners. Extra salt makes your heart work harder and traps the fluid in your body for longer. Special Instructions: Take all of your medications as directed and remember to keep all of your doctor's appointments and follow-up as needed. Elevate your legs when you are not up moving around to help with circulation and prevent swelling. Compression stockings are also a great way to improve lower extremity circulation and prevent/improve lower extremity edema. Local wound care with MediHoney to the open sore of right lower lateral leg followed by moist dressing and Igor wrap to keep swelling down. Recommending changing daily. You are being discharged home with home care to assist with this wound care. Thank you for allowing us to participate in your care, it was truly a pleasure having you for our patient!!! Discharge Disposition: HOME WITH HOME HEALTH SERVICES
[2022-04-27 16:08] VITALS: PULSE 67; RESP 14
== END 2022-04-27 17:58 | disposition home health service (06) | DRG 603 ==
LOC: EC 14:28 → 4SSUR 17:09
PROVIDERS: ADMIT Family Medicine; ATTEND Family Medicine
DX: L03.115 Cellulitis of right lower limb (principal); I50.32 Chronic diastolic (congestive) heart failure; J96.11 Chronic respiratory failure with hypoxia; Z68.41 Body mass index [BMI] 40.0-44.9, adult; D64.9 Anemia, unspecified; E66.01 Morbid (severe) obesity due to excess calories; F32.A Depression, unspecified; G47.30 Sleep apnea, unspecified; I11.0 Hypertensive heart disease with heart failure; I87.2 Venous insufficiency (chronic) (peripheral); J44.9 Chronic obstructive pulmonary disease, unspecified; K21.9 Gastro-esophageal reflux disease without esophagitis; L03.116 Cellulitis of left lower limb; N40.0 Benign prostatic hyperplasia without lower urinary tract symptoms; Z79.51 Long term (current) use of inhaled steroids; Z79.899 Other long term (current) drug therapy; Z87.19 Personal history of other diseases of the digestive system; Z87.891 Personal history of nicotine dependence; Z96.643 Presence of artificial hip joint, bilateral; Z99.81 Dependence on supplemental oxygen; Z88.6 Allergy status to analgesic agent; Z91.040 Latex allergy status
CPT/HCPCS: 80053; 82565; 83605; 83735; 84145; 85025; 85610; 85730; 87040; 93970; 94640; 94660; 94760; 96365; 96366; 96375; 99284

== ENCOUNTER → 2023-12-27 | Outpatient (CLI) | payer MEDICARE ==
--- NOTE | 2023-12-27 15:30 | P.HPBAR ---
Bariatric H&P - History & Physicial H&P Date: 12/27/23 History & Physicial: Visit/CC: Patient initial contact: Initial weight: Initial weight in pounds: Height: 5 ft 9.5 in Initial BMI: Last weight: Current weight: 150.593 kg Current weight in pounds: Current BMI: [place] body weight (based on NIH guidelines): Excess body weight loss: The patient is a 68 year-old M who presents for Bariatric Assessment. Has severe COPD. Insurance company stated weight loss surgery. Lung doctor is Dr. Joshi. Wears oxygen. Stopped smoking 3 years ago. Highest weight is present. Prior to stop smoking 250 pounds. No heart doctor. May need clearance EGD advised. Bypass. NO GERD. He is on acid medication. Trelegy for COPD has steroids. Past Medical History Past Medical History: Heart Failure, COPD, GERD/Reflux, Hypertension, Osteoarthritis (OA), Pneumonia, Prostate Disorder, Respiratory Disorder, Sleep Apnea/CPAP/BIPAP Additional Past Medical History / Comment(s): Chronic hypoxic respiratory failure, home oxygen at 3L/NC,MANDY with Cpap, neuropathy bilateral legs knees down thru toes, occasional bilateral lower leg/pedal edema, BPH, benign colon polyps years ago History of Any Multi-Drug Resistant Organisms: None Reported Past Surgical History: Adenoidectomy, Joint Replacement, Orthopedic Surgery, Tonsillectomy Additional Past Surgical History / Comment(s): Bilateral total hip arthroplasties, L carpal tunnel release, R patella tendon release twice, colonoscopy/polypectomy Past Anesthesia/Blood Transfusion Reactions: No Reported Reaction Past Psychological History: Depression Smoking Status: Former smoker Past Alcohol Use History: None Reported Past Drug Use History: Marijuana - Past Family History Mother Family Medical History: No Reported History Additional Family Medical History / Comment(s): Mother is healthy and 89yrs old. Father Family Medical History: No Reported History Additional Family Medical History / Comment(s): Father is healthy and 90yrs old. Bariatric Checklist Checklist: Plan: Checklist: EGD: 1. Hiatal hernia: 2. H. Pylori: HgbA1c: Vitamin D: Smoking: Current every day smoker Primary care physician referral: Psychiatry clearance: Cardiology clearance: Sleep study: Diet journal: VTE risk score: VTE risk level: Rehab needs at discharge:
[2023-12-27 16:52] VITALS: BP 126/79; PULSE 75; RESP 16; TEMP 97.8; BMI 48.3
[2023-12-27 17:04] LABS: INR 0.9 (<1.2); Prothrombin Time 10.3 sec (10.0-12.5)
[2023-12-27 17:05] LABS: Partial Thromboplastin Time 25.3 sec (22.0-30.0)
[2023-12-28 01:35] LABS: HCT 44.5 % (39.6-50.0); HGB 14.5 g/dL (13.0-17.0); MCHC 32.6 g/dL (32.0-37.0); MCV 95.3 FL (80.0-97.0); Mean Platelet Volume 12.1 FL (9.5-12.2); NRBC Per 100 WBC 0 X 10*3/uL (0.00-0.01); Platelet Count 156 X 10*3/uL (140-440); RBC 4.67 X 10*6/uL (4.40-5.60); RDW 14.7 % (11.5-14.5); WBC 8.36 X 10*3/uL (4.50-10.00)
[2023-12-28 02:40] LABS: Prealbumin 16.4 mg/dL (18.0-42.0)
[2023-12-28 02:50] LABS: % Iron Saturation 19.28 (15.00-50.00); ALT 113 U/L (10-49); AST 62 U/L (14-35); Albumin 4.1 g/dL (3.8-4.9); Albumin/Globulin Ratio 1.52 Ratio (1.60-3.17); Alkaline Phosphatase 78 U/L (41-126); Blood Urea Nitrogen 14.3 mg/dL (9.0-27.0); Calcium 9.7 mg/dL (8.7-10.3); Carbon Dioxide 31.4 mmol/L (21.6-31.8); Chloride 98 mmol/L (96-109); Chol/HDL Ratio 3.55 Ratio; Globulin 2.7 g/dL (1.6-3.3); Glucose 107 mg/dL (70-110); Iron 75 UG/DL (65-175); LDL Cholesterol,Calculated 52.9 mg/dL (0.0-131.0); Phosphorus 2.6 mg/dL (2.4-5.1); Potassium 3.9 mmol/L (3.5-5.5); Sodium 141 mmol/L (135-145); Total Bilirubin 0.4 mg/dL (0.3-1.2); Total Iron Binding Capacity 389 UG/DL (228-460); Total Protein 6.8 g/dL (6.2-8.2)
[2023-12-28 13:39] LABS: Zinc, Serum 77 ug/dL (60-130)
[2023-12-29 06:31] LABS: Vitamin A 38 ug/dL (38-106)
[2023-12-29 12:27] LABS: Vit B1(Thiamine) 98 ug/L (38-122)
[2023-12-30 09:50] LABS: Anabasine Urine <2.0 ng/mL (<2.0)
[2024-01-03 07:37] LABS: Selenium 109 mcg/L (63-160)
== END ==
LOC: BARWHC3 13:43
PROVIDERS: ATTEND Surgery Plastic and Reconstructive Surgery
DX: E66.01 Morbid (severe) obesity due to excess calories (principal); E11.9 Type 2 diabetes mellitus without complications; I10 Essential (primary) hypertension; Z87.891 Personal history of nicotine dependence; Z88.6 Allergy status to analgesic agent; Z91.040 Latex allergy status; Z79.899 Other long term (current) drug therapy; Z68.42 Body mass index [BMI] 45.0-49.9, adult
CPT/HCPCS: 84255; 84134; 84425; 80061; 80053; 82607; 82728; 82525; 82746; 83540; 83550; 83735; 84100; 84443; 84590; 84630; 85027; 85610; 85730; 82306; 83970; 83036; 80307; 93005; G0480; G0463; 80323; 99212

== ENCOUNTER → 2024-02-07 | Outpatient (CLI) | payer MEDICARE ==
[2024-02-07 16:06] VITALS: BP 121/74; PULSE 96; RESP 16; TEMP 98.2; BMI 47.4
--- NOTE | 2024-02-07 16:17 | P.BASOAP ---
Subjective Progress Note Date: 02/07/24 DATE OF SERVICE: 02/07/24 CHIEF COMPLAINT: Morbid obesity HISTORY OF PRESENT ILLNESS: Vinny Stewart is a 68-year-old female who comes with lifelong morbid obesity. As result of his morbid obesity he has developed hypertensive heart disease, obstructive sleep apnea, osteoarthritis bilateral knees. He is oxygen dependent. He denies dysphagia. He admits his prior upper endoscopy reports he is not a morning person. He is looking into weight loss surgery to correct his comorbidities9.5 At height of 5 feet 9.5 inches, ideal body weight is 168 pounds. He comes in 326 pounds, body mass index 47.5. He has lost 6 pounds in 2 months. His highest weight is 332 pounds, body mass index 48.4. He is 158 pounds overweight. PAST MEDICAL HISTORY: 1. Morbid obesity due to excess calories 2. Body mass index of 48.4 3. Hypertensive heart disease 4. Chronic obstructive pulm disease due to asthma 5. Neuropathy 6. Depressive disorder 7. Gastroesophageal reflux disease 8. Osteoarthritis bilateral hips 9. Osteoarthritis right knee 10. Congestive heart failure 11. Prostate disorder 12. Obstructive sleep apnea 13. Benign prostatic hypertrophy 14. Colon polyps 15. Neuropathy 16. Chronic hypoxic respiratory failure 17. Home oxygen use PAST SURGICAL HISTORY: 1. Bilateral hip replacement 2. Left carpal tunnel release 3. Right patella tendon release 4. Colonoscopy 5. Adenoidectomy 6. Tonsillectomy HOME MEDICATIONS: Home Medications Medication Instructions Recorded Confirmed Multivitamin [Men's Multi-Vitamin] 1 tab PO DAILY 04/13/16 03/15/24 Albuterol Inhaler [Ventolin Hfa 2 puff INHALATION RT-Q4H PRN 06/05/21 03/15/24 Inhaler] Ergocalciferol [Vitamin D2 (1250 1,250 mcg PO VALENCIA 06/05/21 03/15/24 Mcg = 18302 Iu)] Furosemide [Lasix] 40 mg PO DAILY 06/05/21 03/15/24 Ipratropium-Albuterol Nebulize 3 ml INHALATION RT-Q4H PRN 06/05/21 03/15/24 [Duoneb 0.5 mg-3 mg/3 ml Soln] Losartan Potassium 100 mg PO DAILY 06/05/21 03/15/24 Potassium Chloride ER [K-Dur 10] 10 meq PO DAILY 06/05/21 03/15/24 Pregabalin [Lyrica] 200 mg PO TID 06/05/21 03/15/24 Tamsulosin [Flomax] 0.4 mg PO HS 06/05/21 03/15/24 Venlafaxine HCl [Effexor XR] 150 mg PO DAILY 06/05/21 03/15/24 amLODIPine [Norvasc] 5 mg PO DAILY 06/05/21 03/15/24 Aspirin EC [Ecotrin Low Dose] 81 mg PO DAILY 02/02/24 03/15/24 Fluticasone/Umeclidin/Vilanter 1 inhalation INHALATION DAILY 02/02/24 03/15/24 [Trelegy Ellipta 100-62.5-25] Previous Rx's Medication Instructions Recorded Pantoprazole [Protonix] 40 mg PO DAILY #14 tab 02/26/24 ALLERGIES: Allergies Allergy/AdvReac Type Severity Reaction Status Date / Time aspirin AdvReac High doses Verified 02/26/24 12:25 cause abdominal pain latex AdvReac Tears skin Verified 02/26/24 12:25 SOCIAL HISTORY: Takes marijuana. FAMILY HISTORY: No family history of ulcerative colitis disease or Crohn's disease. Family history of morbid obesity. No lupus in the family. No reports of stomach or esophageal cancer. REVIEW OF ORGAN SYSTEMS: CONSTITUTIONAL: At height of 5 feet 4 inches, her ideal body weight is 144 pounds. She comes in 220 pounds. Her body mass index is 37.8 She is 76 pounds overweight. HEENT: Denies any active troubles with vision or hearing. ENDOCRINE: Has diabetes. Has hypothyroidism. CARDIOVASCULAR: Past reports of palpitations or heart attacks or chest pain. RESPIRATORY: Has daytime somnolence. GASTROINTESTINAL: Denies any bright red blood per rectum. Has gastroesophageal reflux disease. MUSCULOSKELETAL: Has lower back pain and joint pain. Has osteoarthritis of the knees. NEURO: No headaches. No seizure disorders. PSYCH: Has depression. No suicidal ideation. RHEUMATOLOGIC: No lupus. No rheumatoid arthritis. HEMATOLOGIC: Denies any abnormal bleeding or bruising. No personal history of DVTs. SKIN: Has rash. No skin cancer. PHYSICAL EXAM: VITAL SIGNS: Height 5 foot 9.5 inches, weight 326 pounds. BMI 47.5 Vital Signs Temp 98.2 F 02/07/24 15:48 Pulse 96 02/07/24 15:48 Resp 16 02/07/24 15:48 BP 121/74 02/07/24 15:48 Pulse Ox FiO2 GENERAL: Well-developed in no acute distress. HEENT: No scleral icterus. Extraocular movements grossly intact. Hears conversational speech. No nasal drainage. NECK: Supple without lymphadenopathy. CHEST: Nonlabored respirations with equal bilateral excursions. CARDIOVASCULAR: Regular rate and regular rhythm. Distal 2+ pulses. ABDOMEN: Obese, soft, nontender, nondistended. MUSCULOSKELETAL: No clubbing, cyanosis. NEURO: No focal or lateralizing signs. Cranial nerves 2 through 12 grossly within normal limits. PSYCH: Appropriate affect. Alert and oriented to person, place and time. SKIN: Good skin turgor. Well perfused. LABS: Reviewed. AST and ALT elevated. Triglycerides elevated. EKG normal sinus rhythm ASSESSMENT: 1. Morbid obesity due to excess calories 2. Body mass index of 48.4 3. Hypertensive heart disease 4. Chronic obstructive pulm disease due to asthma 5. Neuropathy 6. Depressive disorder 7. Gastroesophageal reflux disease 8. Osteoarthritis bilateral hips 9. Osteoarthritis right knee 10. Congestive heart failure 11. Prostate disorder 12. Obstructive sleep apnea 13. Benign prostatic hypertrophy 14. Colon polyps 15. Neuropathy 16. Chronic hypoxic respiratory failure 17. Home oxygen use 18. Elevated liver enzymes PLAN: 1. Overall, no nutritional deficiencies identified on his bariatric metabolic panel. 2. Patient reports not being a morning person and will schedule procedures in late morning/afternoon. 3. He has elevated liver enzymes send recommend ultrasound of the gallbladder for gallstones versus liver disease. 4. Recommend food diary journal and protein intake 90 g daily. Objective - Vital Signs Vital signs: Vital Signs Temp 98.2 F 02/07/24 15:48 Pulse 96 02/07/24 15:48 Resp 16 02/07/24 15:48 BP 121/74 02/07/24 15:48 Pulse Ox FiO2 Intake & Output 02/06/24 02/07/24 02/07/24 18:59 06:59 18:59 Weight 147.871 kg Assessment/Plan Plan: Date: 02/07/24 Initial Weight: 150.593 kg Initial BMI: 48.3 Current Weight: 147.871 kg Current BMI: 47.4 Type of Surgery: Total Volume in Band: Previous Volume: Volume Removed: Volume Added: Band Size:
== END ==
LOC: BARWHC3 15:36
PROVIDERS: ATTEND Surgery Plastic and Reconstructive Surgery
DX: E66.01 Morbid (severe) obesity due to excess calories (principal); J44.89 Other specified chronic obstructive pulmonary disease; G62.9 Polyneuropathy, unspecified; F32.A Depression, unspecified; K21.9 Gastro-esophageal reflux disease without esophagitis; I11.0 Hypertensive heart disease with heart failure; I50.9 Heart failure, unspecified; G47.33 Obstructive sleep apnea (adult) (pediatric); N40.0 Benign prostatic hyperplasia without lower urinary tract symptoms; F17.200 Nicotine dependence, unspecified, uncomplicated; J96.11 Chronic respiratory failure with hypoxia; R74.8 Abnormal levels of other serum enzymes; N42.9 Disorder of prostate, unspecified; M17.0 Bilateral primary osteoarthritis of knee; M16.0 Bilateral primary osteoarthritis of hip; Z68.42 Body mass index [BMI] 45.0-49.9, adult; K63.5 Polyp of colon; Z88.6 Allergy status to analgesic agent; Z91.040 Latex allergy status; Z79.899 Other long term (current) drug therapy; Z79.51 Long term (current) use of inhaled steroids
CPT/HCPCS: 99211

== ENCOUNTER 2024-02-26 12:01 | Day surgery (SDC) | payer MEDICARE ==
[2024-02-19 15:03] VITALS: BMI 44.9
--- NOTE | 2024-02-26 10:11 | P.GSHP ---
History of Present Illness H&P Date: 02/26/24 CHIEF COMPLAINT: GERD HISTORY OF PRESENT ILLNESS: The patient is a 68-year-old male who presents reports gastroesophageal reflux disease. Upper endoscopy was offered for further evaluation and management. PAST MEDICAL HISTORY: Please see list. PAST SURGICAL HISTORY: Please see list. MEDICATIONS: Please see list. ALLERGIES: Please see list. SOCIAL HISTORY: No illicit drug use FAMILY HISTORY: No reports of Crohn disease or ulcerative colitis. REVIEW OF ORGAN SYSTEMS: CONSTITUTIONAL: No reports of fevers or chills. GI: Denies any blood in stools or constipation. PHYSICAL EXAM: VITAL SIGNS: Stable GENERAL: Well-developed and pleasant in no acute distress. HEENT: No scleral icterus. Extraocular movements grossly intact. Moist buccal mucosa. NECK: Supple without lymphadenopathy. CHEST: Unlabored respirations. Equal bilateral excursions. CARDIOVASCULAR: Regular rate and rhythm. Distal 2+ pulses. ABDOMEN: Soft, nondistended. MUSCULOSKELETAL: No clubbing, cyanosis, or edema. ASSESSMENT: 1. Gastroesophageal reflux disease PLAN: 1. Recommend proceeding with an upper endoscopy Past Medical History Past Medical History: COPD, GERD/Reflux, Hypertension, Osteoarthritis (OA), Pneumonia, Prostate Disorder, Respiratory Disorder, Sleep Apnea/CPAP/BIPAP Additional Past Medical History / Comment(s): Chronic hypoxic respiratory failure, home oxygen at 3L/[place],MANDY with Cpap, neuropathy bilateral legs knees down thru toes, occasional bilateral lower leg/pedal edema, BPH, benign colon polyps years ago History of Any Multi-Drug Resistant Organisms: None Reported Past Surgical History: Adenoidectomy, Joint Replacement, Orthopedic Surgery, Tonsillectomy Additional Past Surgical History / Comment(s): Bilateral total hip art hroplasties, L carpal tunnel release, R patella tendon release twice, colonoscopy/polypectomy, Past Anesthesia/Blood Transfusion Reactions: No Reported Reaction Additional Past Anesthesia/Blood Transfusion Reaction / Comment(s): no blood transfusion Smoking Status: Former smoker - Past Family History Mother Family Medical History: No Reported History Additional Family Medical History / Comment(s): Mother is healthy and 89yrs old. Father Family Medical History: No Reported History Additional Family Medical History / Comment(s): Father is healthy and 90yrs old. Medications and Allergies Home Medications Medication Instructions Recorded Confirmed Type Multivitamin [Men's Multi-Vitamin] 1 tab PO DAILY 04/13/16 02/19/24 History Albuterol Inhaler [Ventolin Hfa 2 puff INHALATION RT-Q4H PRN 06/05/21 02/19/24 History Inhaler] Ergocalciferol [Vitamin D2 (1250 1,250 mcg PO VALENCIA 06/05/21 02/19/24 History Mcg = 08546 Iu)] Furosemide [Lasix] 40 mg PO DAILY 06/05/21 02/19/24 History Ipratropium-Albuterol Nebulize 3 ml INHALATION RT-Q4H PRN 06/05/21 02/19/24 History [Duoneb 0.5 mg-3 mg/3 ml Soln] Losartan Potassium 100 mg PO DAILY 06/05/21 02/19/24 History Potassium Chloride ER [K-Dur 10] 10 meq PO DAILY 06/05/21 02/19/24 History Pregabalin [Lyrica] 200 mg PO TID 06/05/21 02/19/24 History Tamsulosin [Flomax] 0.4 mg PO HS 06/05/21 02/19/24 History Venlafaxine HCl [Effexor XR] 150 mg PO DAILY 06/05/21 02/19/24 History amLODIPine [Norvasc] 5 mg PO DAILY 06/05/21 02/19/24 History Aspirin EC [Ecotrin Low Dose] 81 mg PO DAILY 02/02/24 02/19/24 History Famotidine [Pepcid] 20 mg PO BID 02/02/24 02/19/24 History Fluticasone/Umeclidin/Vilanter 1 inhalation INHALATION DAILY 02/02/24 02/19/24 History [Trelegy Ellipta 100-62.5-25] Allergies Allergy/AdvReac Type Severity Reaction Status Date / Time aspirin AdvReac High doses Verified 02/02/24 10:59 cause abdominal pain latex AdvReac Tears skin Verified 02/02/24 10:59
[2024-02-26] MEDS: LACTATED RINGERS 1,000 ML IV SCH (12:38)
[2024-02-26 13:22] VITALS: TEMP 98
[2024-02-26] MEDS ORDERED: PROPOFOL 10 MG/ML 20 ML VIAL IV ONE (13:41)
[2024-02-26 14:21] VITALS: BP 123/69; PULSE 70; RESP 15
--- NOTE | 2024-02-26 14:39 | P.PCN ---
Date of Procedure: 02/26/24 Description of Procedure: PREOPERATIVE DIAGNOSIS: Gastroesophageal reflux disease. Morbid obesity. POSTOPERATIVE DIAGNOSIS: Gastroesophageal reflux disease. Morbid obesity. Gastritis with bleeding OPERATION: Esophagogastroduodenoscopy with biopsies along esophagus, antrum and duodenum SURGEON: Isabel Greenwood MD ANESTHESIA: MAC. INDICATIONS: The patient is a 68-year-old male who presents with reflux disease. Benefits and risks of the procedure were described. Informed consent was obtained. DESCRIPTION: The patient was brought into the endoscopy suite and laid in the left lateral decubitus position. An Olympus gastroscope was passed along the posterior oropharynx down to the distal esophagus where the squamocolumnar junction was encountered at 43 cm from the incisors. The stomach was entered and no bile reflux was found. Additional findings are listed below. Biopsies with cold forceps were obtained of the antrum. The first through third portion of the duodenum was examined. Retroflexion of the scope confirmed Hill grade 1 lower esophageal valve. The squamocolumnar junction demonstrated LA grade B erosive esophagitis. The stomach was desufflated. The patient tolerated the procedure well. FINDINGS: Squamocolumnar junction 43 cm from the incisors. Diaphragmatic hiatus at 43 cm. Hill grade 1 lower esophageal valve. LA grade B erosive esophagitis. Biopsies obtained Biopsies obtained of the duodenum. Acute gastritis with bleeding was found diffusely throughout the stomach with biopsies obtained. RECOMMENDATIONS: Protonix 40 mg daily. Plan - Discharge Summary Discharge Rx Participant: No New Discharge Prescriptions: New Pantoprazole [Protonix] 40 mg PO DAILY #14 tab Continue Multivitamin [Men's Multi-Vitamin] 1 tab PO DAILY Ergocalciferol [Vitamin D2 (1250 Mcg = 54699 Iu)] 1,250 mcg PO VALENCIA Venlafaxine HCl [Effexor XR] 150 mg PO DAILY Albuterol Inhaler [Ventolin Hfa Inhaler] 2 puff INHALATION RT-Q4H PRN PRN Reason: Shortness Of Breath Aspirin EC [Ecotrin Low Dose] 81 mg PO DAILY Tamsulosin [Flomax] 0.4 mg PO HS Pregabalin [Lyrica] 200 mg PO TID Potassium Chloride ER [K-Dur 10] 10 meq PO DAILY Losartan Potassium 100 mg PO DAILY amLODIPine [Norvasc] 5 mg PO DAILY Ipratropium-Albuterol Nebulize [Duoneb 0.5 mg-3 mg/3 ml Soln] 3 ml INHALATION RT-Q4H PRN PRN Reason: Shortness Of Breath Furosemide [Lasix] 40 mg PO DAILY Fluticasone/Umeclidin/Vilanter [Trelegy Ellipta 100-62.5-25] 1 inhalation INHALATION DAILY Discontinued Famotidine [Pepcid] 20 mg PO BID Discharge Medication List Multivitamin [Men's Multi-Vitamin] 1 tab PO DAILY 04/13/16 [History] Albuterol Inhaler [Ventolin Hfa Inhaler] 2 puff INHALATION RT-Q4H PRN 06/05/21 [History] Ergocalciferol [Vitamin D2 (1250 Mcg = 04063 Iu)] 1,250 mcg PO VALENCIA 06/05/21 [History] Furosemide [Lasix] 40 mg PO DAILY 06/05/21 [History] Ipratropium-Albuterol Nebulize [Duoneb 0.5 mg-3 mg/3 ml Soln] 3 ml INHALATION RT-Q4H PRN 06/05/21 [History] Losartan Potassium 100 mg PO DAILY 06/05/21 [History] Potassium Chloride ER [K-Dur 10] 10 meq PO DAILY 06/05/21 [History] Pregabalin [Lyrica] 200 mg PO TID 06/05/21 [History] Tamsulosin [Flomax] 0.4 mg PO HS 06/05/21 [History] Venlafaxine HCl [Effexor XR] 150 mg PO DAILY 06/05/21 [History] amLODIPine [Norvasc] 5 mg PO DAILY 06/05/21 [History] Aspirin EC [Ecotrin Low Dose] 81 mg PO DAILY 02/02/24 [History] Fluticasone/Umeclidin/Vilanter [Trelegy Ellipta 100-62.5-25] 1 inhalation INHALATION DAILY 02/02/24 [History] Pantoprazole [Protonix] 40 mg PO DAILY #14 tab 02/26/24 [Rx] [facility]Ref[facility] [place] [facility] - 03/13/24 3:00 pm Patient Instructions/Handouts: Gastritis (DC) Discharge Disposition: HOME SELF-CARE
== END 2024-02-26 14:54 | disposition home or self-care (01) ==
LOC: ORWHC2ENDO 12:01
PROVIDERS: ATTEND Surgery Plastic and Reconstructive Surgery
DX: K29.50 Unspecified chronic gastritis without bleeding (principal); E66.01 Morbid (severe) obesity due to excess calories; G47.33 Obstructive sleep apnea (adult) (pediatric); I10 Essential (primary) hypertension; J44.9 Chronic obstructive pulmonary disease, unspecified; K21.9 Gastro-esophageal reflux disease without esophagitis; N40.0 Benign prostatic hyperplasia without lower urinary tract symptoms; Z79.82 Long term (current) use of aspirin; Z79.899 Other long term (current) drug therapy; Z87.891 Personal history of nicotine dependence; Z88.6 Allergy status to analgesic agent
CPT/HCPCS: 88305; 43239; J2704

== ENCOUNTER → 2024-03-13 | Outpatient (CLI) | payer MEDICARE ==
[2024-03-13 16:22] VITALS: BP 136/74; PULSE 86; TEMP 97.6; BMI 47.4
--- NOTE | 2024-03-13 16:31 | P.BASOAP ---
Subjective Progress Note Date: 03/13/24 Labs reviewed. He is looking into the band for surgery. Sleeve for surgery. He has COPD. Labs reviewed with high liver enzymes. Plan for US and possible cholecystectomy at time of sleeve. Objective - Vital Signs Vital signs: Vital Signs Temp 97.6 F 03/13/24 16:20 Pulse 86 03/13/24 16:20 Resp BP 136/74 03/13/24 16:20 Pulse Ox FiO2 Intake & Output 03/12/24 03/13/24 03/13/24 18:59 06:59 18:59 Weight 147.871 kg Assessment/Plan Plan: Date: 03/13/24 Initial Weight: 150.593 kg Initial BMI: 48.3 Current Weight: 147.871 kg Current BMI: 47.4 Type of Surgery: Total Volume in Band: Previous Volume: Volume Removed: Volume Added: Band Size:
== END ==
LOC: BARWHC3 14:47
PROVIDERS: ATTEND Surgery Plastic and Reconstructive Surgery
DX: E66.01 Morbid (severe) obesity due to excess calories (principal); J44.9 Chronic obstructive pulmonary disease, unspecified; Z88.6 Allergy status to analgesic agent; Z91.040 Latex allergy status; Z68.42 Body mass index [BMI] 45.0-49.9, adult; Z87.891 Personal history of nicotine dependence; Z79.899 Other long term (current) drug therapy; Z79.51 Long term (current) use of inhaled steroids
CPT/HCPCS: 99211

== ENCOUNTER → 2024-03-18 | Outpatient (CLI) | payer MEDICARE ==
[2024-03-18 13:23] VITALS: BMI 47.8
== END ==
LOC: BARWHC3 13:00
PROVIDERS: ATTEND Surgery Plastic and Reconstructive Surgery
DX: E66.01 Morbid (severe) obesity due to excess calories (principal); F17.200 Nicotine dependence, unspecified, uncomplicated; Z68.42 Body mass index [BMI] 45.0-49.9, adult; Z88.6 Allergy status to analgesic agent; Z91.040 Latex allergy status
CPT/HCPCS: 97804

== ENCOUNTER → 2024-06-21 | Outpatient (CLI) | payer MEDICARE ==
--- NOTE | 2024-06-22 08:27 | NM ---
"EXAMINATION TYPE: NM hepatobiliary wo EF DATE OF EXAM: 06/21/2024 5:21 PM COMPARISON: None CLINICAL INDICATION:Male, 68 years old with history of R94.5 ABNORMAL RESULTS OF LIVER FUNCTION STUDI ES; TECHNIQUE: The patient was given 5.6 mCi of Technetium 99m-Mebrofenin as a radiotracer and multiple scintigraphic images were obtained of the abdomen. Delayed imaging was performed up to 4 hours. FINDINGS: Normal uptake of radiotracer was identified within the liver with excretion into the hepatic and comm on biliary ducts within 8 minutes. There was normal progressive washout of the liver over the course of the study. Radiotracer uptake within the gallbladder was not visualized throughout the exam includ ing for delayed imaging. Small bowel activity was identified at 6 minutes. IMPRESSION: Nonvisualization of the gallbladder at 4 hours post injection correlate for cholecystitis. Ejection fraction cannot be performed. A [place] level critical message alert has been initiated for Isabel Greenwood MD via the [employer] | Critical Results System on 06/22/2024 8:24 AM. This message alert has been sent to Isabel Whitt MD via the preferences provided by the clinician for the receipt of Radiology Critical Findi ngs. Message ID [id number]."
== END | disposition home or self-care (01) ==
LOC: RADNMMAIN 12:50
PROVIDERS: ATTEND Surgery Plastic and Reconstructive Surgery
DX: R94.5 Abnormal results of liver function studies
CPT/HCPCS: 78226

== ENCOUNTER → 2024-09-11 | Outpatient (CLI) | payer MEDICARE ==
[2024-09-11 19:30] LABS: Eosinophils # (A) 0.25 X 10*3/uL (0.04-0.35); Eosinophils % (A) 2.6 %; HCT 43.9 % (39.6-50.0); HGB 14.6 g/dL (13.0-17.0); Lymphocytes # (A) 2.25 X 10*3/uL (0.90-5.00); Lymphocytes % (A) 23.1 %; MCH 30.7 pg (27.0-32.0); MCHC 33.3 g/dL (32.0-37.0); MCV 92.4 FL (80.0-97.0); Mean Platelet Volume 11.4 FL (9.5-12.2); Monocytes # (A) 0.77 X 10*3/uL (0.20-1.00); Monocytes % (A) 7.9 %; NRBC Per 100 WBC 0 X 10*3/uL (0.00-0.01); Neutrophils # (A) 6.33 X 10*3/uL (1.80-7.70); Neutrophils % (A) 64.9 %; Platelet Count 144 X 10*3/uL (140-440); RBC 4.75 X 10*6/uL (4.40-5.60); RDW 14.1 % (11.5-14.5); WBC 9.75 X 10*3/uL (4.50-10.00)
[2024-09-11 19:37] LABS: ALT 34 U/L (10-49); AST 28 U/L (14-35); Albumin 4.1 g/dL (3.8-4.9); Albumin/Globulin Ratio 1.46 Ratio (1.60-3.17); Alkaline Phosphatase 88 U/L (41-126); BUN/Creat Ratio 11.27 Ratio (12.00-20.00); Blood Urea Nitrogen 12.4 mg/dL (9.0-27.0); Calcium 9.7 mg/dL (8.7-10.3); Chloride 101 mmol/L (96-109); Globulin 2.8 g/dL (1.6-3.3); Glucose 95 mg/dL (70-110); Potassium 4.7 mmol/L (3.5-5.5); Sodium 142 mmol/L (135-145); Total Bilirubin 0.4 mg/dL (0.3-1.2); Total Protein 6.9 g/dL (6.2-8.2)
== END | disposition home or self-care (01) ==
LOC: LABWHC1 14:29
PROVIDERS: ATTEND Surgery Plastic and Reconstructive Surgery
DX: Z01.812 Encounter for preprocedural laboratory examination (principal)
CPT/HCPCS: 36415; 80053; 85025

== ENCOUNTER → 2024-09-11 | Outpatient (CLI) | payer MEDICARE ==
[2024-09-11 14:10] VITALS: BP 139/76; PULSE 80; RESP 16; TEMP 98.2; BMI 43.5
--- NOTE | 2024-09-11 14:21 | P.BASOAP ---
Subjective Progress Note Date: 09/11/24 He is losing weight on ozempic. He has lost 35 pounds. Has gallstones. He is on oxygen. Objective - Vital Signs Vital signs: Vital Signs Temp 98.2 F 09/11/24 13:55 Pulse 80 09/11/24 13:55 Resp 16 09/11/24 13:55 BP 139/76 09/11/24 13:55 Pulse Ox FiO2 Intake & Output 09/10/24 09/11/24 09/11/24 18:59 06:59 18:59 Weight 135.624 kg Assessment/Plan Plan: Date: 09/11/24 Initial Weight: 150.593 kg Initial BMI: 48.3 Current Weight: 135.624 kg Current BMI: 43.5 Type of Surgery: Total Volume in Band: Previous Volume: Volume Removed: Volume Added: Band Size:
== END ==
LOC: BARWHC3 13:46
PROVIDERS: ATTEND Surgery Plastic and Reconstructive Surgery
DX: E66.01 Morbid (severe) obesity due to excess calories (principal); Z68.41 Body mass index [BMI] 40.0-44.9, adult; K80.20 Calculus of gallbladder without cholecystitis without obstruction; Z88.6 Allergy status to analgesic agent; Z91.040 Latex allergy status; F17.210 Nicotine dependence, cigarettes, uncomplicated
CPT/HCPCS: 99211

== ENCOUNTER → 2024-09-23 | Day surgery (SDC) | payer MEDICARE ==
[2024-09-19 15:58] VITALS: BMI 41.1
[~2024-09-23] MED LIST: GLYCOPYRROLATE 0.2 MG/ML 2 ML VIAL ONE; HYDROmorphone 0.5 MG/0.5 ML SYRINGE IVP PRN; INDOCYANINE GREEN 25 MG VIAL IV STA; KETAMINE HCL IN 0.9 % NACL 50 MG/5 ML SYRINGE ONE; LIDOCAINE 1% INJ 10MG/ML (20 ML MDV) ONE; MIDAZOLAM 2 MG/2 ML VIAL ONE; NEOSTIGMINE 1 MG/ML 10 ML VIAL ONE; PROPOFOL 10 MG/ML 20 ML VIAL IV ONE; ROCURONIUM 10 MG/ML (5 ML VIAL) IV ONE; SUCCINYLCHOLINE CHLORIDE 200 MG/10 ML VIAL IV ONE; SUGAMMADEX SODIUM 100 MG/ML SYR IV ONE; fentaNYL (PF) 50 MCG/ML 2 ML AMP ONE
--- NOTE | 2024-09-23 10:42 | P.GSHP ---
History of Present Illness H&P Date: 09/23/24 CHIEF COMPLAINT: Cholecystitis HISTORY OF PRESENT ILLNESS: The patient is a 69-year-old male who presents with history of epigastric including right upper quadrant abdominal pain. He underwent diagnostic studies for the gallbladder. Separately his clinical picture was consistent with cholecystitis. Now he presents for surgical intervention. PAST MEDICAL HISTORY: Please see list PAST SURGICAL HISTORY: Please see list MEDICATIONS: Please see list ALLERGIES: Denies. SOCIAL HISTORY: No illicit drug use or recent tobacco use FAMILY HISTORY: Pertinent for gallbladder disease REVIEW OF ORGAN SYSTEMS: CONSTITUTIONAL: No reports of fevers or chills. HEENT: Denies any troubles with the vision or hearing. ENDOCRINE: No reports of hypothyroidism. No diabetes. RESPIRATORY: No recent pneumonias. CARDIOVASCULAR: Denies chest pain or palpitations GI: No blood in stools or constipation. MUSCULOSKELETAL: Has occasional joint pain including back pain. NEURO: No seizure disorders or headaches. No recent stroke. PSYCH: No depression or suicidal ideation. HEMATOLOGIC: No personal or family history of DVTs or pulmonary emboli. PHYSICAL EXAM: VITAL SIGNS: Afebrile vital signs stable GENERAL: Well-developed pleasant male in no acute distress. HEENT: No scleral icterus. Extraocular movements grossly intact. Moist buccal mucosa. NECK: Supple without lymphadenopathy. CHEST: Unlabored respirations. Equal bilateral excursions. CARDIOVASCULAR: Regular rate regular rhythm rhythm. Distal 2+ pulses. ABDOMEN: Soft, nondistended. Tender along the epigastrium and right upper quadrant. MUSCULOSKELETAL: No clubbing, cyanosis, or edema. NEURO : No focal or lateralizing signs. Cranial nerves II-12 within normal limits. PSYCH: Alert and oriented to person, place and time. SKIN: Well perfused. Good skin turgor. ASSESSMENT: 1. Epigastric and right upper quadrant abdominal pain 2. Chronic cholecystitis 3. Symptomatic gallstones 4. Chronic obstructive of pulmonary disease, oxygen dependent 5. Morbid obesity excess calories, BMI 41.1 PLAN: 1. Will need a robotic cholecystectomy possible open. Benefits and risks were described. 2. Heparin for DVT prophylaxis 5000 units. 3. Antibiotic prophylaxis. 4. CBC and CMP on day of procedure 5. Non-narcotic pre and post op pain management reviewed. 6. Indocyanine green for biliary imaging. 7. Patient is elevated risk due to chronic obstructive pulmonary disease and morbid obesity. Past Medical History Past Medical History: COPD, GERD/Reflux, Hypertension, Neurologic Disorder, Osteoarthritis (OA), Pneumonia, Prostate Disorder, Respiratory Disorder, Sleep Apnea/CPAP/BIPAP Additional Past Medical History / Comment(s): Chronic hypoxic respiratory failure, home oxygen at 3L/NC. CPAP use. Neuropathy bilateral legs, occasional bilateral lower leg/feet edema. BPH. History of Any Multi-Drug Resistant Organisms: None Reported Past Surgical History: Adenoidectomy, Joint Replacement, Orthopedic Surgery, Tonsillectomy Additional Past Surgical History / Comment(s): Bilateral total hip arthroplasties, left carpal tunnel release, right patella tendon release X2, colonoscopy/benign polypectomy. Past Anesthesia/Blood Transfusion Reactions: No Reported Reaction Additional Past Anesthesia/Blood Transfusion Reaction / Comment(s): No blood transfusion. Smoking Status: Former smoker - Past Family History Mother Family Medical History: No Reported History Additional Family Medical History / Comment(s): Mother is healthy and 89yrs old. Father Family Medical History: No Reported History Additional Family Medical History / Comment(s): Father is healthy and 90yrs old. Medications and Allergies Home Medications Medication Instructions Recorded Confirmed Type Multivitamin [Men's Multi-Vitamin] 1 tab PO DAILY 04/13/16 09/23/24 History Albuterol Inhaler [Ventolin Hfa 2 puff INHALATION RT-Q4H PRN 06/05/21 09/23/24 History Inhaler] Ergocalciferol [Vitamin D2 (1250 1,250 mcg PO [place] 06/05/21 09/23/24 History Mcg = 67759 Iu)] Furosemide [Lasix] 40 mg PO DAILY 06/05/21 09/23/24 History Ipratropium-Albuterol Nebulize 3 ml INHALATION RT-Q4H PRN 06/05/21 09/23/24 History [Duoneb 0.5 mg-3 mg/3 ml Soln] Losartan Potassium 100 mg PO DAILY 06/05/21 09/23/24 History Potassium Chloride ER [K-Dur 10] 10 meq PO DAILY 06/05/21 09/23/24 History Pregabalin [Lyrica] 200 mg PO TID 06/05/21 09/23/24 History Tamsulosin [Flomax] 0.4 mg PO HS 06/05/21 09/23/24 History Venlafaxine HCl [Effexor XR] 150 mg PO DAILY 06/05/21 09/23/24 History amLODIPine [Norvasc] 5 mg PO DAILY 06/05/21 09/23/24 History Fluticasone/Umeclidin/Vilanter 1 inhalation INHALATION DAILY 02/02/24 09/23/24 History [Trelegy Ellipta 100-62.5-25] Semaglutide [Ozempic] 0.5 mg SQ MO 09/11/24 09/23/24 History Allergies Allergy/AdvReac Type Severity Reaction Status Date / Time aspirin AdvReac High doses Verified 09/23/24 10:36 cause abdominal pain latex AdvReac Tears skin Verified 09/23/24 10:36
[2024-09-23] MEDS: IV FLUID CONTINUATION 1,000 ML IV ONE ×2 (10:57→15:09)
[2024-09-23] MEDS: LACTATED RINGERS 1,000 ML IV SCH (10:58)
[2024-09-23] MEDS: FAMOTIDINE 20 MG/2 ML VIAL IV STA (11:10)
[2024-09-23] MEDS: ONDANSETRON 4 MG/2 ML VIAL IVP STA (11:10)
[2024-09-23] MEDS: DEXAMETHASONE SOD PHOSPHATE 4 MG/ML 1 ML VIAL IVP STA (11:10)
[2024-09-23] MEDS: HEPARIN SODIUM,PORCINE 5,000 UNIT/ML 1 ML VIAL SQ PRN (11:13)
[2024-09-23] MEDS: IPRATROPIUM-ALBUTEROL 3 ML NEB INHALATION STA (11:15)
[2024-09-23] MEDS: ceFAZolin 3 GM in SODIUM CHLORIDE 0.9% 100 ML IVPB PRN (12:32)
[2024-09-23] MEDS: LIDOCAINE 1%-EPI 1:100,000 20 ML VIAL SQ ONE ×2 (12:40→13:03)
[2024-09-23 14:17] VITALS: TEMP 97.4
[2024-09-23 14:41] VITALS: RESP 18
[2024-09-23] MEDS: HYDROmorphone 0.5 MG/0.5 ML SYRINGE IVP PRN (14:52)
[2024-09-23 15:51] VITALS: PULSE 74
[2024-09-23 16:00] VITALS: BP 144/81
--- NOTE | 2024-09-23 16:27 | P.OP ---
Date of Procedure: 09/23/24 Description of Procedure: SURGEON: MELISSA ZULETA MD PREOPERATIVE DIAGNOSES: 1. Symptomatic gallstones 2. Chronic cholecystitis 3. Morbid obesity excess calories, BMI 42.1 4. Chronic obstructive pulmonary disease oxygen dependent 5. Hypertensive heart disease 6. Diabetes type 2 with diabetic retinopathy 7. Diabetes type 2 with diabetic neuropathy 8. Congestive heart failure 9. Vitamin D deficiency 10. Depressive disorder 11. Gastroesophageal reflux disease 12. Benign prostatic hypertrophy with obstructive symptoms 13. Obstructive sleep apnea 14. Osteoarthritis bilateral hips POSTOPERATIVE DIAGNOSES: 1. Symptomatic gallstones 2. Chronic cholecystitis 3. Morbid obesity excess calories, BMI 42.1 4. Chronic obstructive pulmonary disease oxygen dependent 5. Hypertensive heart disease 6. Diabetes type 2 with diabetic retinopathy 7. Diabetes type 2 with diabetic neuropathy 8. Congestive heart failure 9. Vitamin D deficiency 10. Depressive disorder 11. Gastroesophageal reflux disease 12. Benign prostatic hypertrophy with obstructive symptoms 13. Obstructive sleep apnea 14. Osteoarthritis bilateral hips 15. Right upper quadrant peritoneal adhesions including pericholecystic adhesions 16. Hepatomegaly with fatty liver disease OPERATION: 1. Robotic-assisted da Madeline Xi laparoscopic lysis adhesions over 80% of the case 2. Robotic-assisted da Madeline Xi laparoscopic cholecystectomy, multiport with FIREFLY ESTIMATED BLOOD LOSS: 10 mL. SPECIMENS REMOVED: Gallbladder. COMPLICATIONS: None. OPERATIVE FINDINGS: 1. Moderate scarring over entire gallbladder with peritoneal adhesions, pericholecystic with features of chronic cholecystitis 2. Large gallstone over 4 cm palpated INDICATIONS: The patient is a 69-year-old male who presents with symptomatic gallstones. Robotic assisted laparoscopic approach was described. Benefits and risks of the procedure including but not limited to bleeding, infection, injury to the biliary tree was described. Informed consent was obtained. DESCRIPTION OF PROCEDURE: Patient was brought to the operating room, placed in supine position. After general induction, the abdomen had been prepped and draped in standard sterile fashion. The robotic da Madeline XI system was primed. After a timeout protocol was performed, the patient had been prepped and draped in standard sterile fashion. The patient was injected with indocyanine green. A 5 mm 0 degrees laparoscopic trocar entry was performed along the left upper quadrant. The abdomen insufflated to 15 mmHg pressure which was tolerated well. Diagnostic laparoscopy demonstrated no injury to bowel viscera or mesentery. The liver surface demonstrated fatty liver disease with a moderate hepatomegaly. Next, two 8 mm robotic ports were placed along the right upper abdomen. The camera 8-mm port was maintained along the epigastrium. Another 8 mm port was placed along the left upper abdominal wall after exchanging the 5 mm port. Please note that the ports were placed at least 10 to 15 cm away from the target anatomy of the gallbladder. The robot was docked along the left lateral abdomen. The patient was repositioned in reverse Trendelenburg position. Using a grasper for arm 3, a grasper for arm 4, including hook cautery for arm 1 , the robotic system was docked and primed as described. Instruments were interchanged by the lead recreation assistant including hook cautery, Bovie cautery and clip appliers. I had sat at the console. The gallbladder was scarred with moderate to severe peritoneal adhesions including along the liver edge. Lysis of adhesions was performed to free the gallbladder from the surrounding tissues including along the upper edge for 80% the case. Next attention was brought to the infundibulum and cystic structures. The infundibulum and cystic duct were dissected free from surrounding tissues. The cystic duct was isolated. FIREFLY was used to identify the cystic artery and cystic structures. A critical view of safety was obtained. Large PLASTIC clips were used throughout the entire case. Using a clip melt supervisor, 3 clips were placed at the junction of the infundibulum and cystic duct. The cystic duct was divided between clips. Next, the cystic artery was similarly cauterized. Electro-Bovie cautery was used to remove the gallbladder from the hepatic fossa. Hemostasis was checked and found to be adequate. The robot was undocked. I re-scrubbed into the case. Using a 10 mm Endo Catch bag via the left upper quadrant incision, the specimen was removed from the abdominal cavity. All pneumoperitoneum instruments were evacuated from the abdominal cavity. The incisions were reapproximated using 4-0 Monocryl in an interrupted subcuticular fashion. Fascial defects were less than 8 mm in size. Please note along the trocar sites, local anesthetic was placed as a field block prior to insertion of all instruments. Liquid glue was applied to the skin. At the end of the procedure needle, sponge, and instrument count had been verified correct by the surgical rn. The patient was transferred to postanesthesia care unit in stable condition. Plan - Discharge Summary Discharge Rx Participant: No New Discharge Prescriptions: New Simethicone [Gas-X] 125 mg PO AC-TID PRN #20 capsule PRN Reason: Pain Acetaminophen Tab [Tylenol Tab] 1,000 mg PO Q6HR PRN #30 tablet PRN Reason: Pain Continue Multivitamin [Men's Multi-Vitamin] 1 tab PO DAILY Ergocalciferol [Vitamin D2 (1250 Mcg = 63744 Iu)] 1,250 mcg PO MO Venlafaxine HCl [Effexor XR] 150 mg PO DAILY Albuterol Inhaler [Ventolin Hfa Inhaler] 2 puff INHALATION RT-Q4H PRN PRN Reason: Shortness Of Breath Tamsulosin [Flomax] 0.4 mg PO HS Pregabalin [Lyrica] 200 mg PO TID Potassium Chloride ER [K-Dur 10] 10 meq PO DAILY Losartan Potassium 100 mg PO DAILY amLODIPine [Norvasc] 5 mg PO DAILY Ipratropium-Albuterol Nebulize [Duoneb 0.5 mg-3 mg/3 ml Soln] 3 ml INHALATION RT-Q4H PRN PRN Reason: Shortness Of Breath Furosemide [Lasix] 40 mg PO DAILY Fluticasone/Umeclidin/Vilanter [Trelegy Ellipta 100-62.5-25] 1 inhalation INHALATION DAILY Semaglutide [Ozempic] 0.5 mg SQ MO Discharge Medication List Multivitamin [Men's Multi-Vitamin] 1 tab PO DAILY 04/13/16 [History] Albuterol Inhaler [Ventolin Hfa Inhaler] 2 puff INHALATION RT-Q4H PRN 06/05/21 [ History] Ergocalciferol [Vitamin D2 (1250 Mcg = 42190 Iu)] 1,250 mcg PO MO 06/05/21 [History] Furosemide [Lasix] 40 mg PO DAILY 06/05/21 [History] Ipratropium-Albuterol Nebulize [Duoneb 0.5 mg-3 mg/3 ml Soln] 3 ml INHALATION RT-Q4H PRN 06/05/21 [History] Losartan Potassium 100 mg PO DAILY 06/05/21 [History] Potassium Chloride ER [K-Dur 10] 10 meq PO DAILY 06/05/21 [History] Pregabalin [Lyrica] 200 mg PO TID 06/05/21 [History] Tamsulosin [Flomax] 0.4 mg PO HS 06/05/21 [History] Venlafaxine HCl [Effexor XR] 150 mg PO DAILY 06/05/21 [History] amLODIPine [Norvasc] 5 mg PO DAILY 06/05/21 [History] Fluticasone/Umeclidin/Vilanter [Trelegy Ellipta 100-62.5-25] 1 inhalation INHALATION DAILY 02/02/24 [History] Semaglutide [Ozempic] 0.5 mg SQ MO 09/11/24 [History] Acetaminophen Tab [Tylenol Tab] 1,000 mg PO Q6HR PRN #30 tablet 09/23/24 [Rx] Simethicone [Gas-X] 125 mg PO AC-TID PRN #20 capsule 09/23/24 [Rx] [facility]ment(s[facility]Ref[facility] [place] [facility] [place] [facility]/27/24 9:00 am Patient Instructions/Handouts: Low Fat Diet (DC), Laparoscopic Cholecystectomy (DC) Activity/Diet/Wound Care/Special Instructions: Caution for LONG DRIVES OR AIRPLANE RIDES OVER 60 MINUTES FOR THE NEXT 2 WEEKS, 10/07/24, DUE TO HIGH RISK OF PULMONARY EMBOLISM/DVTs May drive in 72 hrs, 09/26/24 Recommend low-fat diet for the next 2 days. No lifting over 10 pounds in 2 weeks until 10/07/24, May shower. No bath tub soaks for two weeks until 10/07/24, Use Tylenol, simethicone and ibuprofen or Aleve scheduled for the next 24-48 hours for best pain relief. Use ice along incisions for today to prevent swelling. Discharge Disposition: HOME SELF-CARE
== END | disposition home or self-care (01) ==
LOC: OR 10:20
PROVIDERS: ATTEND Surgery Plastic and Reconstructive Surgery
DX: K80.10 Calculus of gallbladder with chronic cholecystitis without obstruction (principal); E11.40 Type 2 diabetes mellitus with diabetic neuropathy, unspecified; E55.9 Vitamin D deficiency, unspecified; E66.01 Morbid (severe) obesity due to excess calories; F32.A Depression, unspecified; G47.33 Obstructive sleep apnea (adult) (pediatric); I11.0 Hypertensive heart disease with heart failure; I50.9 Heart failure, unspecified; J44.9 Chronic obstructive pulmonary disease, unspecified; K21.9 Gastro-esophageal reflux disease without esophagitis; K66.0 Peritoneal adhesions (postprocedural) (postinfection); K76.0 Fatty (change of) liver, not elsewhere classified; M16.0 Bilateral primary osteoarthritis of hip; N40.1 Benign prostatic hyperplasia with lower urinary tract symptoms; E11.319 Type 2 diabetes mellitus with unspecified diabetic retinopathy without macular edema; Z68.41 Body mass index [BMI] 40.0-44.9, adult; Z79.899 Other long term (current) drug therapy; Z83.79 Family history of other diseases of the digestive system; Z87.891 Personal history of nicotine dependence; Z88.6 Allergy status to analgesic agent; Z99.81 Dependence on supplemental oxygen; Z90.89 Acquired absence of other organs
CPT/HCPCS: 47562; 88304; J2250; J0330; J1644; J1100; J2710; J0690; J2405; J2003; J3010; J3490; J2704; J1171; J1596

== ENCOUNTER → 2024-10-04 | Outpatient (CLI) | payer MEDICARE ==
[2024-10-04 11:47] VITALS: BP 129/69; PULSE 67; RESP 16; TEMP 98.7; BMI 43.5
== END ==
LOC: BARWHC3 10:30
PROVIDERS: ATTEND Surgery Plastic and Reconstructive Surgery
DX: E66.01 Morbid (severe) obesity due to excess calories (principal); Z53.9 Procedure and treatment not carried out, unspecified reason
CPT/HCPCS: 99211